=== PATIENT | male | born 1960 | race Caucasian/White ===

== ENCOUNTER 2020-11-07 19:11 | Inpatient (IN) ==
[2020-11-07] MEDS ORDERED: ASPIRIN CHEW 324 MG PO STA (19:29)
[2020-11-07 19:52] LABS: Basophils # (auto) 0.04 K/uL (0-0.2); Basophils % (auto) 0.6 %; Eosinophils # (auto) 0.26 K/uL (0-0.5); Eosinophils % (auto) 4.1 %; Hematocrit (blood only) 43.9 % (42-52); Hemoglobin 14.3 g/dL (14.0-18.0); Immature Granulocytes # (auto) 0.04 K/uL (0.00-0.02); Immature Granulocytes % (auto) 0.6 %; Lymphocytes # (auto) 1.15 K/uL (1.2-3.4); Lymphocytes % (auto) 18.2 %; Mean Corpuscular Hemoglobin 30.5 pg (25-34); Mean Corpuscular Hgb Conc 32.6 g/dL (32-36); Mean Corpuscular Volume 93.6 fL (80-100); Mean Platelet Volume 9.8 fL (7.4-10.4); Monocytes # (auto) 0.39 K/uL (0.11-0.59); Monocytes % (auto) 6.2 %; Neutrophils # (auto) 4.45 K/uL (1.4-6.5); Neutrophils % (auto) 70.3 %; Platelet Count 193 K/uL (130-400); RDW Coefficient of Variation 14.4 % (11.5-14.5); RDW Standard Deviation 48.7 fL (36.4-46.3); Red Blood Count 4.69 M/uL (4.7-6.1); White Blood Count 6.33 K/uL (4.8-10.8)
[2020-11-07] MEDS ORDERED: OPTIRAY 320 125ml IV ONE (19:55)
[2020-11-07 20:01] LABS: iSTAT Creatinine 1.4 mg/dl (0.6-1.3); iSTAT Hemoglobin 14.6 g/dl (14.0-18.0); iSTAT Ionized Calcium 1.14 mmol/l (1.12-1.32); iSTAT Potassium 4.9 mmol/L (3.3-5.0)
[2020-11-07 20:03] LABS: Partial Thromboplastin Ratio 0.9; Partial Thromboplastin Time 24.1 Seconds (21.0-31.0)
[2020-11-07 20:09] LABS: Blood Urea Nitrogen 29 mg/dl (7-18); Carbon Dioxide 33 mmol/L (21-32); Chloride 104 mmol/L (98-107); Creatinine Clr Calc Pharmacy 90.9 ml/min; Est GFR (African American) 67.5 ml/min; Est GFR (Non-African American) 58.2 ml/min; Glucose 181 mg/dl (70-99); Lipase 272 U/L (73-393); Potassium 4.8 mmol/L (3.5-5.1); Sodium 139 mmol/L (136-145)
--- NOTE | 2020-11-07 20:09 | XRay Report ---
XR chest 1V portable HISTORY: Atypical Chest Pain COMPARISON: None. FINDINGS: No pneumothorax. No pleural effusions. A few bibasilar linear densities consistent with sub segmental atelectasis. Otherwise, no focal lung consolidations to suggest pneumonia. No evidence for pulmonary edema. The cardiac silhouette is top normal in size. Mild interstitial thickening is likely technical from the patient's body habitus. No evidence for pulmonary edema. IMPRESSION: No acute process. ACT 112: Negative or not required by law. Electronically signed by: Herson Villatoro M.D. 11/07/2020 8:07 PM
[2020-11-07 20:14] LABS: NT Pro B Type Natriuretic Pept 389 pg/ml (0-900); Troponin I < 0.015 ng/ml (0-0.045)
--- NOTE | 2020-11-07 20:29 | CT Scan Report ---
CHEST CTA for PULMONARY ARTERIES CT DOSE: 949.82 mGy.cm HISTORY: Atypical chest pain. Shortness of breath. TECHNIQUE: Multiaxial CT images of the chest were performed following the intravenous administration of contrast to evaluate the pulmonary arteries. Maximal intensity projection images were also obtaine d. A dose lowering technique was utilized adhering to the principles of ALARA. COMPARISON STUDY: None. FINDINGS: Normal caliber thoracic aorta with no evidence for dissection. The heart is normal in size. No pleural or pericardial effusions. No filling defects within the pulmonary arteries to suggest a p ulmonary embolus. Limited views of the upper abdomen demonstrate a normal liver, spleen, and adrenal glands. Subcentimeter mediastinal lymph nodes do not meet CT criteria for pathologic involvement. The re are mildly enlarged bilateral hilar lymph nodes measuring up to 13 mm in short axis diameter. Norm al esophagus. No suspicious lytic or blastic osseous lesions. Old, healed left lateral eighth rib fra cture. No pneumothorax. The central airways are patent. There are a few bibasilar linear densities co nsistent with subsegmental atelectasis. Otherwise, no focal lung consolidations to suggest pneumonia. No evidence for pulmonary edema. IMPRESSION: 1. No evidence for pulmonary embolus. 2. Mild bilateral hilar lymphadenopathy. [address] follow-up recommended to ensure stability/r esolution. ACT 112: Negative or not required by law. Electronically signed by: Herson Villatoro M.D. 11/07/2020 8:27 PM
[2020-11-07 20:32] LABS: Prothrombin Time 10.3 Seconds (9.0-12.0)
--- NOTE | 2020-11-07 20:34 | Emergency Department Note ---
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) Associated symptoms: + lower extremity pain (Right lower extremity pain and swelling) and + palpitations; no pain with inspiration, no fever, no cough, no wheezing, no sputum production, no orthopnea, no polyuria, no polydipsia, no paresthesias, no carpopedal spasm, no hemoptysis, no diaphoresis, no nausea/vomiting, no syncope, no abdominal pain, no rash, no sense of impending doom, no chest congestion, no dizziness or no lightheadedness Home Medications Medication Instructions Recorded Confirmed Type atorvastatin 20 mg tablet 20 mg PO HS 11/07/20 11/07/20 History glimepiride 4 mg tablet 8 mg PO QDD 11/07/20 11/07/20 History hydrochlorothiazide 12.5 mg capsule 12.5 mg PO DAILY 11/07/20 11/07/20 History lisinopril 5 mg tablet 5 mg PO DAILY 11/07/20 11/07/20 History loperamide 2 mg capsule 2 mg PO Q4H PRN 11/07/20 11/07/20 History metformin 1,000 mg tablet 1,000 mg PO BID 11/07/20 11/07/20 History multivitamin 1 tab PO DAILY 11/07/20 11/07/20 History pioglitazone 30 mg tablet 30 mg PO DAILY 11/07/20 11/07/20 History Allergies Allergy/AdvReac Type Severity Reaction Status Date / Time No Known Allergies Allergy Mild Unverified 11/07/20 20:22 Past Med/Surg History Medical History (Updated 11/07/20 @ 22:47 by Chivo Waller) Diabetes mellitus, type II HLD (hyperlipidemia) HTN (hypertension) Morbid obesity No pertinent family history Surgical History (Updated 11/07/20 @ 20:31 by Chivo Waller) No pertinent past surgical history Family History (Updated 11/07/20 @ 22:14 by Rhiannon Diamond PA-C) Other Diabetes Social History (Updated 11/07/20 @ 22:14 by Rhiannon Diamond PA-C) Smoking Status: Former smoker Hx Alcohol Use: No Hx Substance Use: No Preferred Language: Ukrainian Feels Safe at Home: Yes Review of Systems A total of 10 systems reviewed and were otherwise negative Physical Exam Vital Signs: Vital Signs - 24 hr 11/07/20 19:15 11/07/20 19:30 11/07/20 19:32 Temperature 37.2 C Temperature Source Temporal Artery Sc an Pulse Rate 101 H 94 H Pulse Rate from Sp O2 Sensor 93 H Respiratory Rate 18 23 Respiratory Effort / Characteristics Respiratory Depth Normal Respiratory Patter n Blood Pressure 160/86 H Blood Pressure Fabby n 110 Pulse Oximetry 97 Oxygen Delivery Me thod Room Air Nasal Cannula Oxygen Flow Rate 4 Sepsis Recent Feve r Within 48 Hours No Sepsis New/Unexpla ined Change in Men tres Status N/A Sepsis Action Take n by Nursing No Action Required 11/07/20 19:36 11/07/20 19:39 11/07/20 20:12 Temperature Temperature Source Pulse Rate 95 H Pulse Rate from Sp O2 Sensor 94 H Respiratory Rate 22 Respiratory Effort / Characteristics Labored Respiratory Depth Deep Respiratory Patter n Regular Blood Pressure Blood Pressure Fabby n Pulse Oximetry 97 98 Oxygen Delivery Me thod Nasal Cannula Oxygen Flow Rate 2 Sepsis Recent Feve r Within 48 Hours Sepsis New/Unexpla ined Change in Men tres Status Sepsis Action Take n by Nursing 11/07/20 20:20 11/07/20 21:05 11/07/20 21:10 Temperature Temperature Source Pulse Rate 92 H 89 88 Pulse Rate from Sp O2 Sensor 94 H 88 Respiratory Rate 23 19 19 Respiratory Effort / Characteristics Respiratory Depth Respiratory Patter n Blood Pressure Blood Pressure Fabby n Pulse Oximetry 98 98 Oxygen Delivery Me thod Oxygen Flow Rate Sepsis Recent Feve r Within 48 Hours Sepsis New/Unexpla ined Change in Men tres Status Sepsis Action Take n by Nursing 11/07/20 21:57 Temperature 37.1 C Temperature Source Oral Pulse Rate Pulse Rate from Sp O2 Sensor Respiratory Rate Respiratory Effort / Characteristics Non-Labored Sponta neous Respiratory Depth Normal Respiratory Patter n Blood Pressure Blood Pressure Fabby n Pulse Oximetry 98 Oxygen Delivery Me thod Nasal Cannula Oxygen Flow Rate 3 Sepsis Recent Feve r Within 48 Hours Sepsis New/Unexpla ined Change in Men tres Status Sepsis Action Take n by Nursing Physical Exam: Physical Exam GENERAL: He is oriented to person, place, and time. He appears well-developed and well-nourished. He does not appear distressed. HENT: Exam performed. - Head: Normocephalic and atraumatic. - Right Ear: External ear normal. No mastoid tenderness. - Left Ear: External ear normal. No mastoid tenderness. - Mouth/Throat: The oropharynx is clear and moist. No trismus in the jaw. No dental abscesses or uvula swelling. No oropharyngeal exudate or tonsillar abscesses. EYES: Conjunctivae and EOM are normal. Pupils are equal, round, and reactive to light. Right eye exhibits no discharge. Left eye exhibits no discharge. No scleral icterus. NECK: Normal range of motion. Neck supple. No JVD present. No spinous process tenderness present. No carotid bruit present. No rigidity. No tracheal deviation and normal range of motion present. No Brudzinski's sign and no Kernig's sign noted. CV: Tachycardic rate, regular rhythm, normal heart sounds and intact distal pulses. Palpable radial pulses bue. PULM/CHEST: Effort normal and breath sounds normal. No respiratory distress. No stridor. He has no wheezes. He has no rales. - Chest Wall: He exhibits no tenderness. ABD: The abdomen is soft and obese. Bowel sounds are normal. He has no distension. No mass is present. There is no tenderness. There is no rebound, no guarding, no Daily's sign and no tenderness at McBurney's point. Rovsig negative. MUSC/SKEL: Swelling of the right lower extremity and pain on palpation of the right calf. Palpable DP and PT pulses bilaterally. LYMPH: No cervical adenopathy. NEURO: He is alert and oriented to person, place, and time. He has normal strength. No cranial nerve deficit or sensory deficit. Coordination and gait normal. GCS eye subscore is 4. GCS verbal subscore is 5. GCS motor subscore is 6. Cerebellar tests wnl. SKIN: Skin is warm and dry. He is not diaphoretic. PSYCH: He has a normal mood and affect. Behavior is normal. Judgment and thought content normal. Course Course 1919: The patient was evaluated in room B7. A complete history and physical exam was performed Cardiac monitoring: An order was placed for continuous cardiac monitoring. The monitor shows a rate of 90 with sinus rhythm Patient was found to be hypoxic saturating 87% on room air. 3 L nasal cannula was applied to the patient which improved his oxygen saturation. 2130: Vital signs stable on supplemental oxygen via nasal cannula. On repeat physical exam, the lungs are clear to auscultation bilaterally. Labs and imaging are within normal limits. [facility]. Administered Medications Discontinued Medications Acetaminophen (Acetaminophen 325 Mg Tab) 650 mg PO NOW STA Stop: 11/07/20 22:13 Last Admin: 11/07/20 22:32 Dose: 650 mg Documented by: [id number] Aspirin (Aspirin Chew 324 Mg) 324 mg PO NOW STA Stop: 11/07/20 19:30 Last Admin: 11/07/20 19:56 Dose: 324 mg Documented by: [id number] Ioversol (Optiray 320 125ml) 119 ml IV ONCE ONE Stop: 11/07/20 19:56 Last Admin: 11/07/20 19:56 Dose: 1 ml Documented by: [id number] Medical Decision Making Laboratory Data Result diagrams: 11/07/20 19:40 11/07/20 19:40 Lab Results 11/07/20 11/07/20 11/07/20 Range/Units 19:40 19:40 19:40 WBC 6.33 (4.8-10.8) K/uL RBC 4.69 L (4.7-6.1) M/uL Hgb 14.3 (14.0-18.0) g/dL POC Hgb (14.0-18.0) g/dl Hct 43.9 (42-52) % POC Hct (42-52) % MCV 93.6 (80-100) fL MCH 30.5 (25-34) pg MCHC 32.6 (32-36) g/dL RDW Std Deviation 48.7 H (36.4-46.3) fL RDW Coeff of Solomon 14.4 (11.5-14.5) % Plt Count 193 (130-400) K/uL MPV 9.8 (7.4-10.4) fL Immature Gran % (Auto) 0.6 % Neut % (Auto) 70.3 % Lymph % (Auto) 18.2 % [place] % (Auto) 6.2 % Eos % (Auto) 4.1 % Baso % (Auto) 0.6 % Neut # (Auto) 4.45 (1.4-6.5) K/uL Lymph # (Auto) 1.15 L (1.2-3.4) K/uL [place] # (Auto) 0.39 (0.11-0.59) K/uL Eos # (Auto) 0.26 (0-0.5) K/uL Baso # (Auto) 0.04 (0-0.2) K/uL Immature Gran # (Auto) 0.04 H (0.00-0.02) K/uL PT (9.0-12.0) Seconds INR (0.9-1.1) APTT 24.1 (21.0-31.0) Seconds PTT Ratio 0.9 ABG pH (7.35-7.45) ABG pCO2 (35-46) mmHg ABG pO2 (80-95) mmHg ABG HCO3 (19-24) mmol/L ABG O2 Saturation (90-95) % ABG Base Excess (-9-1.8) mEq/L James Test (Pos) Barometric Pressure mm/Hg Oxygen Given POC Sodium (135-144) mmol/L Sodium 139 (136-145) mmol/L POC Potassium (3.3-5.0) mmol/L Potassium 4.8 (3.5-5.1) mmol/L POC Chloride (101-112) mmol/L Chloride 104 (98-107) mmol/L Carbon Dioxide 33 H (21-32) mmol/L POC Total CO2 (24-31) mmol/L Anion Gap 2.0 L (3-11) POC Anion Gap (16-25) mmol/L POC BUN (7-18) mg/dl BUN 29 H (7-18) mg/dl Creatinine 1.32 (0.6-1.4) mg/dl POC Creatinine (0.6-1.3) mg/dl Est Cr Clr Drug Dosing 90.9 ml/min Est GFR ( Amer) 67.5 ml/min Est GFR (Non-Af Amer) 58.2 ml/min BUN/Creatinine Ratio 22.0 H (10-20) Glucose 181 H (70-99) mg/dl POC Glucose (other) (70-99) mg/dl Calcium 9.0 (8.5-10.1) mg/dl POC Ioniz Calcium Ramon (1.12-1.32) mmol/l Magnesium 2.1 (1.8-2.4) mg/dl Troponin I < 0.015 (0-0.045) ng/ml NT-Pro-B Natriuret Pep 389 (0-900) pg/ml Lipase 272 (73-393) U/L COVID-19 Eval Order SARS-CoV-2 (PCR) (Negative) 11/07/20 11/07/20 11/07/20 Range/Units 19:40 19:40 19:40 WBC (4.8-10.8) K/uL RBC (4.7-6.1) M/uL Hgb (14.0-18.0) g/dL POC Hgb (14.0-18.0) g/dl Hct (42-52) % POC Hct (42-52) % MCV (80-100) fL MCH (25-34) pg MCHC (32-36) g/dL RDW Std Deviation (36.4-46.3) fL RDW Coeff of Solomon (11.5-14.5) % Plt Count (130-400) K/uL MPV (7.4-10.4) fL Immature Gran % (Auto) % Neut % (Auto) % Lymph % (Auto) % [place] % (Auto) % Eos % (Auto) % Baso % (Auto) % Neut # (Auto) (1.4-6.5) K/uL Lymph # (Auto) (1.2-3.4) K/uL [place] # (Auto) (0.11-0.59) K/uL Eos # (Auto) (0-0.5) K/uL Baso # (Auto) (0-0.2) K/uL Immature Gran # (Auto) (0.00-0.02) K/uL PT 10.3 (9.0-12.0) Seconds INR 1.0 (0.9-1.1) APTT (21.0-31.0) Seconds PTT Ratio ABG pH (7.35-7.45) ABG pCO2 (35-46) mmHg ABG pO2 (80-95) mmHg ABG HCO3 (19-24) mmol/L ABG O2 Saturation (90-95) % ABG Base Excess (-9-1.8) mEq/L James Test (Pos) Barometric Pressure mm/Hg Oxygen Given POC Sodium (135-144) mmol/L Sodium (136-145) mmol/L POC Potassium (3.3-5.0) mmol/L Potassium (3.5-5.1) mmol/L POC Chloride (101-112) mmol/L Chloride (98-107) mmol/L Carbon Dioxide (21-32) mmol/L POC Total CO2 (24-31) mmol/L Anion Gap (3-11) POC Anion Gap (16-25) mmol/L POC BUN (7-18) mg/dl BUN (7-18) mg/dl Creatinine (0.6-1.4) mg/dl POC Creatinine (0.6-1.3) mg/dl Est Cr Clr Drug Dosing ml/min Est GFR ( Amer) ml/min Est GFR (Non-Af Amer) ml/min BUN/Creatinine Ratio (10-20) Glucose (70-99) mg/dl POC Glucose (other) (70-99) mg/dl Calcium (8.5-10.1) mg/dl POC Ioniz Calcium Ramon (1.12-1.32) mmol/l Magnesium (1.8-2.4) mg/dl Troponin I (0-0.045) ng/ml NT-Pro-B Natriuret Pep (0-900) pg/ml Lipase (73-393) U/L COVID-19 Eval Order Covid19 at [facility] SARS-CoV-2 (PCR) NEGATIVE (Negative) 11/07/20 11/07/20 Range/Units 19:49 21:38 WBC (4.8-10.8) K/uL RBC (4.7-6.1) M/uL Hgb (14.0-18.0) g/dL POC Hgb 14.6 (14.0-18.0) g/dl Hct (42-52) % POC Hct 43 (42-52) % MCV (80-100) fL MCH (25-34) pg MCHC (32-36) g/dL RDW Std Deviation (36.4-46.3) fL RDW Coeff of Solomon (11.5-14.5) % Plt Count (130-400) K/uL MPV (7.4-10.4) fL Immature Gran % (Auto) % Neut % (Auto) % Lymph % (Auto) % [place] % (Auto) % Eos % (Auto) % Baso % (Auto) % Neut # (Auto) (1.4-6.5) K/uL Lymph # (Auto) (1.2-3.4) K/uL [place] # (Auto) (0.11-0.59) K/uL Eos # (Auto) (0-0.5) K/uL Baso # (Auto) (0-0.2) K/uL Immature Gran # (Auto) (0.00-0.02) K/uL PT (9.0-12.0) Seconds INR (0.9-1.1) APTT (21.0-31.0) Seconds PTT Ratio ABG pH 7.37 (7.35-7.45) ABG pCO2 46 (35-46) mmHg ABG pO2 71 L (80-95) mmHg ABG HCO3 26 H (19-24) mmol/L ABG O2 Saturation 94.2 (90-95) % ABG Base Excess 0.0 (-9-1.8) mEq/L James Test Pos (Pos) Barometric Pressure 733.9 mm/Hg Oxygen Given 2 POC Sodium 141 (135-144) mmol/L Sodium (136-145) mmol/L POC Potassium 4.9 (3.3-5.0) mmol/L Potassium (3.5-5.1) mmol/L POC Chloride 98 L (101-112) mmol/L Chloride (98-107) mmol/L Carbon Dioxide (21-32) mmol/L POC Total CO2 29 (24-31) mmol/L Anion Gap (3-11) POC Anion Gap 20.0 (16-25) mmol/L POC BUN 30 H (7-18) mg/dl BUN (7-18) mg/dl Creatinine (0.6-1.4) mg/dl POC Creatinine 1.4 H (0.6-1.3) mg/dl Est Cr Clr Drug Dosing ml/min Est GFR ( Amer) ml/min Est GFR (Non-Af Amer) ml/min BUN/Creatinine Ratio (10-20) Glucose (70-99) mg/dl POC Glucose (other) 185 H (70-99) mg/dl Calcium (8.5-10.1) mg/dl POC Ioniz Calcium Ramon 1.14 (1.12-1.32) mmol/l Magnesium (1.8-2.4) mg/dl Troponin I (0-0.045) ng/ml NT-Pro-B Natriuret Pep (0-900) pg/ml Lipase (73-393) U/L COVID-19 Eval Order SARS-CoV-2 (PCR) (Negative) Imaging Data Radiologist's Impression: Chest X-Ray 11/07/20 19:28 XR chest 1V portable HISTORY: Atypical Chest Pain COMPARISON: None. FINDINGS: No pneumothorax. No pleural effusions. A few bibasilar linear densi ties consistent with subsegmental atelectasis. Otherwise, no focal lung consolidations to suggest pneumonia. No evidence for pulmonary edema. The cardiac silhouette is top normal in size. Mild interstitial thickening is likely technical from the patient's body habitus. No evidence for pulmonary edema. IMPRESSION: No acute process. ACT 112: Negative or not required by law. Electronically signed by: Herson Villatoro M.D. 11/07/2020 8:07 PM Chest CTA 11/07/20 19:29 CHEST CTA for PULMONARY ARTERIES CT DOSE: 949.82 mGy.cm HISTORY: Atypical chest pain. Shortness of breath. TECHNIQUE: Multiaxial CT images of the chest were performed following the in travenous administration of contrast to evaluate the pulmonary arteries. Maximal intensity projection images were also obtained. A dose lowering technique was utilized adhering to the principles of ALARA. COMPARISON STUDY: None. FINDINGS: Normal caliber thoracic aorta with no evidence for dissection. The heart is normal in size. No pleural or pericardial effusions. No filling defects within the pulmonary arteries to suggest a pulmonary embolus. Limited views of the upper abdomen demonstrate a normal liver, spleen, and adrenal glands. Subcentimeter mediastinal lymph nodes do not meet CT criteria for pathologic involvement. There are mildly enlarged bilateral hilar lymph nodes measuring up to 13 mm in short axis diameter. Normal esophagus. No suspicious lytic or blastic osseous lesions. Old, healed left lateral eighth rib fracture. No pneumothorax. The central airways are patent. There are a few bibasilar linear densities consistent with subsegmental atelectasis. Otherwise, no focal lung consolidations to suggest pneumonia. No evidence for pulmonary edema. IMPRESSION: 1. No evidence for pulmonary embolus. 2. Mild bilateral hilar lymphadenopathy. [address] follow-up recommended to ensure stability/resolution. ACT 112: Negative or not required by law. Electronically signed by: Herson Villatoro M.D. 11/07/2020 8:27 PM Venous Doppler Study 11/07/20 19:29 RIGHT LOWER EXTREMITY VENOUS DOPPLER HISTORY: Right leg swelling. COMPARISON STUDY: None. FINDINGS: There is normal compressibility, flow, and augmentation within the right lower extremity deep venous system. IMPRESSION: No DVT within the right lower extremity ACT 112: Negative or not required by law. Electronically signed by: Herson Villatoro M.D. 11/07/2020 8:49 PM ECG Data Interpretation: Sinus rhythm with rate 94. QRS 128. AR and QTc intervals are within normal limits. No ST elevation or ST depression. Right bundle branch block present. [facility] Narrative 1919: The patient was evaluated in room B7. A complete history and physical exam was performed Cardiac monitoring: An order was placed for continuous cardiac monitoring. The monitor shows a rate of 90 with sinus rhythm Patient was found to be hypoxic saturating 87% on room air. 3 L nasal cannula was applied to the patient which improved his oxygen saturation. 2129: Vital signs stable on supplemental oxygen via nasal cannula. On repeat physical exam, the lungs are clear to auscultation bilaterally. Labs and imaging are within normal limits. [facility] for [facility]. Impression & Plan Hypoxia Critical Care Time Critical Care Time: Yes Total Critical Care Time: 46 I have personally spent greater than 46 minutes of critical care time in the direct management of this patient. This includes bedside care, interpretation of diagnostic studies, and testing, discussion with consultants, patient, and family members, and other required patient management activities. This 46 minutes is in excess of all separately billable procedures. Discharge Plan Visit Data Chief Complaint: Respiratory Problems Stated Complaint: LOW OXYGEN LEVEL ED Provider: Chivo Waller Discharge Problem: Hypoxia Patient Disposition: Admitted As Inpatient Forms Stand Alone Forms: My [facility] Prescriptions Prescriptions: No Action atorvastatin 20 mg tablet 20 mg PO HS RF: 0 metformin 1,000 mg tablet 1,000 mg PO BID RF: 0 hydrochlorothiazide 12.5 mg capsule 12.5 mg PO DAILY RF: 0 pioglitazone 30 mg tablet 30 mg PO DAILY RF: 0 multivitamin Tablet 1 tab PO DAILY RF: 0 loperamide [Imodium] 2 mg Capsule 2 mg PO Q4H PRN (Reason: Diarrhea) RF: 0 glimepiride 4 mg tablet 8 mg PO QDD RF: 0 lisinopril 5 mg tablet 5 mg PO DAILY RF: 0 Referrals Referrals: PCP,NO [Physician] -
--- NOTE | 2020-11-07 20:50 | Ultrasound Report ---
RIGHT LOWER EXTREMITY VENOUS DOPPLER HISTORY: Right leg swelling. COMPARISON STUDY: None. FINDINGS: There is normal compressibility, flow, and augmentation within the right lower extremity de ep venous system. IMPRESSION: No DVT within the right lower extremity ACT 112: Negative or not required by law. Electronically signed by: Herson Villatoro M.D. 11/07/2020 8:49 PM
[2020-11-07 21:44] LABS: Magnesium 2.1 mg/dl (1.8-2.4)
--- NOTE | 2020-11-07 22:01 | History & Physical Report ---
Date of Service November 07, 2020 Assessment & Plan (1) Hypoxia: (2) Lower extremity edema: (3) Diabetes mellitus, type II: (4) HTN (hypertension): (5) HLD (hyperlipidemia): (6) Morbid obesity: Plan: HPI, PMH, PE completed by Rhiannon Diamond PA-C Assessment and plan per Dr. Kohler. See addendum. History of Present Illness Chief Complaint: Right leg pain, SOB Primary Care Provider: Kimberly Hernández DO Patient is 60-year-old male with PMH DM II, HTN, HLD, prior tobacco use, morbid obesity presented to ER for right leg pain and swelling x several days. Patient reports chronic bilateral lower extremity edema, left ankle typically worse than right. He reports in past has tried YAMILETH hose without improvement. Patient states several days ago stepped on threshold on floor in his house and since having pain to right foot and right leg. He reports chronic lower extremity discoloration however right lower leg and foot seem to have more red coloration than usual. Was seen at PCPs office for leg pain today and noted to be hypoxic in the 80s and was referred to ER. Patient reports shortness of breath with exertion for several months. Denies chest pain or exertional chest pain. Denies fever, chills, cough. Patient reports that he snores at night and he feels that he may have underlying sleep apnea. Patient reports has gained approximately 20 pounds over the past couple months, feels he has gained weight secondary to the pandemic. Reports palpitations during the middle the night and sometimes awaken from sleep. Patient does not check his blood sugars. 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 Reports smoked for 40 years, quit approximately 12 years ago. Denies fever/chills, diaphoresis, N/V/D/C, BURNS, dizziness, syncope, vision changes, neck pain, sore throat, choking, otalgia, rhinorrhea, abdominal pain, paresthesias, weakness, extremity weakness, other rashes, urinary symptoms. In ER patient afebrile, found to have pulse ox 85% on room air up to 98% on 3 L. No leukocytosis, negative COVID-19 PCR. Chest x-ray no acute process, CTA chest: No PE, mild bilateral hilar lymphadenopathy. RLE venous Doppler negative for DVT Patient being admitted for further evaluation and treatment. Allergies Allergy/AdvReac Type Severity Reaction Status Date / Time No Known Allergies Allergy Mild Unverified 11/07/20 20:22 Home Medications Medication Instructions Recorded Confirmed Type atorvastatin 20 mg tablet 20 mg PO HS 11/07/20 11/07/20 History glimepiride 4 mg tablet 8 mg PO QDD 11/07/20 11/07/20 History hydrochlorothiazide 12.5 mg capsule 12.5 mg PO DAILY 11/07/20 11/07/20 History lisinopril 5 mg tablet 5 mg PO DAILY 11/07/20 11/07/20 History loperamide 2 mg capsule 2 mg PO Q4H PRN 11/07/20 11/07/20 History metformin 1,000 mg tablet 1,000 mg PO BID 11/07/20 11/07/20 History multivitamin 1 tab PO DAILY 11/07/20 11/07/20 History pioglitazone 30 mg tablet 30 mg PO DAILY 11/07/20 11/07/20 History Past Med/Surg History Medical History (Updated 11/07/20 @ 22:47 by Chivo Waller) Diabetes mellitus, type II HLD (hyperlipidemia) HTN (hypertension) Morbid obesity No pertinent family history Surgical History (Updated 11/07/20 @ 20:31 by Chivo Waller) No pertinent past surgical history Family History (Updated 11/07/20 @ 22:14 by Rhiannon Diamond PA-C) Other Diabetes Social History (Updated 11/07/20 @ 22:14 by Rhiannon Diamond PA-C) Smoking Status: Former smoker Cigarettes Per Day: 1; Smoking End Date: 2005; Second Hand Exposure: No; Do You Dip or Chew Tobacco: No; Tobacco Cessation Education Requested by Patient: No Hx Alcohol Use: Yes Alcohol type: beer Hx Substance Use: No Preferred Language: Uzbek Director Regulatory Affairs Required: No Beliefs That Will Affect Care: None Current Living Situation: Spouse Other Information That Helps Us Care for You: No Feels Safe at Home: Yes Safety Concerns: Feels Safe At This Time Assistive Devices: None Physical Exam 2 Physical Exam: General: no distress, obese Head: normocephalic, atraumatic Eyes: conjunctiva non-injected, anicteric ENT: normal inspection external ears, nose, mucous membranes moist Neck: supple, trachea midline Lungs: no respiratory distress, On 3L oxygen via NC sat 98%, speaks in full sentences, no wheezing/rhonchi/rales noted CV: distant heart sounds, RRR, no murmur, 1-2+ pretibial edema Abd: +obese, normal BS, soft, non-tender Ext: no cyanosis, +venous stasis skin discoloration bilateral lower legs with right leg with mild erythema, no calf tenderness to palpation, +tenderness to palpation bilateral lower anterior legs, distal pulses palpable, sensation to light touch intact Neuro: A&O x 3, no focal deficits noted, normal affect Skin: warm, dry Results & Data Results & Data ([facility]) Vital Signs (Past 12 Hours) Vital Signs Temp Pulse Resp BP Pulse Ox 11/07/20 21:57 37.1 C 98 11/07/20 21:10 88 19 98 11/07/20 21:05 89 19 11/07/20 20:20 92 H 23 98 11/07/20 20:12 95 H 22 98 11/07/20 19:39 97 11/07/20 19:32 94 H 23 97 11/07/20 19:15 37.2 C 101 H 18 160/86 H Laboratory Results Short CBC 11/07/20 Range/Units 19:40 WBC 6.33 (4.8-10.8) K/uL Hgb 14.3 (14.0-18.0) g/dL Hct 43.9 (42-52) % Plt Count 193 (130-400) K/uL BMP 11/07/20 19:40 Sodium 139 Potassium 4.8 Chloride 104 Carbon Dioxide 33 H BUN 29 H Creatinine 1.32 Glucose 181 H Calcium 9.0 Cardiac Enzymes 11/07/20 Range/Units 19:40 Troponin I < 0.015 (0-0.045) ng/ml Diagnostic Findings Chest X-Ray 11/07/20 19:28 XR chest 1V portable HISTORY: Atypical Chest Pain COMPARISON: None. FINDINGS: No pneumothorax. No pleural effusions. A few bibasilar linear densities consistent with subsegmental atelectasis. Otherwise, no focal lung consolidations to suggest pneumonia. No evidence for pulmonary edema. The cardiac silhouette is top normal in size. Mild interstitial thickening is likely technical from the patient's body habitus. No evidence for pulmonary edema. IMPRESSION: No acute process. ACT 112: Negative or not required by law. Electronically signed by: Herson Villatoro M.D. 11/07/2020 8:07 PM Chest CTA 11/07/20 19:29 CHEST CTA for PULMONARY ARTERIES CT DOSE: 949.82 mGy.cm HISTORY: Atypical chest pain. Shortness of breath. TECHNIQUE: Multiaxial CT images of the chest were performed following the intravenous administration of contrast to evaluate the pulmonary arteries. Maximal intensity projection images were also obtained. A dose lowering techn ique was utilized adhering to the principles of ALARA. COMPARISON STUDY: None. FINDINGS: Normal caliber thoracic aorta with no evidence for dissection. The heart is normal in size. No pleural or pericardial effusions. No filling defects within the pulmonary arteries to suggest a pulmonary embolus. Limited views of the upper abdomen demonstrate a normal liver, spleen, and adrenal glands. Subcen timeter mediastinal lymph nodes do not meet CT criteria for pathologic involvement. There are mildly enlarged bilateral hilar lymph nodes measuring up to 13 mm in short axis diameter. Normal esophagus. No suspicious lytic or blastic osseous lesions. Old, healed left lateral eighth rib fracture. No pneumothorax. The central airways are patent. There are a few bibasilar linear densities consistent with subsegmental atelectasis. Otherwise, no focal lung consolidations to suggest pneumonia. No evidence for pulmonary edema. IMPRESSION: 1. No evidence for pulmonary embolus. 2. Mild bilateral hilar lymphadenopathy. [address] follow-up recommended to ensure stability/resolution. ACT 112: Negative or not required by law. Electronically signed by: Herson Villatoro M.D. 11/07/2020 8:27 PM Venous Doppler Study 11/07/20 19:29 RIGHT LOWER EXTREMITY VENOUS DOPPLER HISTORY: Right leg swelling. COMPARISON STUDY: None. FINDINGS: There is normal compressibility, flow, and augmentation within the right lower extremity deep venous system. IMPRESSION: No DVT within the right lower extremity ACT 112: Negative or not required by law. Electronically signed by: Herson Villatoro M.D. 11/07/2020 8:49 PM Supervising Physician Co-Signing Physician Notes IM ATTENDING : Patient seen and examined. History obtained from patient, family, and records. Preceding documentation by Ms. Rhiannon Schreckengost, PA-C reviewed. FINAL ASSESSMENT AND PLAN as follows : Hypoxemic respiratory failure Unknown duration Possible right-sided heart failure from possible pulmonary hypertension from undiagnosed JASSON Hypertension, slightly elevated secondary to discomfort RLE cellulitis, possible ascending infection following right foot trauma, underlying leg swelling from possible right-sided heart failure Patient not septic for now DM2, on oral medications, suboptimal control as of recent hemoglobin A1c of 10.9 in November 2019 Hyperlipidemia on statin Rx Past tobacco abuse Medical telemetry Supplemental O2 Baseline ABG TTE Re: Hypoxemia rule out pulmonary hypertension Outpatient sleep study Pulmonology consult Re: Respiratory failure Lasix 1 dose for fluid retention Right foot x-ray Re: History trauma Doxycycline for RLE cellulitis Basal insulin, ISS BG goal 1 10-1 40, carb count coverage, update hemoglobin A1c, DM education DVT prophylaxis. Lovenox subcu Full code Patient requesting updates from providers. Ms. Ivette Rubin, contact #[phone]. Text document was generated using [employer] voice recognition software. It may contain grammatical or spelling errors. Kindly contact undersigned for clarification of any documentation item in question.
[2020-11-07] MEDS ORDERED: ACETAMINOPHEN 325 MG TAB PO STA (22:12)
[2020-11-07 22:20] LABS: HCO3 ABG 26 mmol/L (19-24); Oxygen Saturation ABG 94.2 % (90-95); PCO2 ABG 46 mmHg (35-46); PO2 ABG 71 mmHg (80-95); pH ABG 7.37 (7.35-7.45)
[2020-11-07 22:36] LABS: Allen Test Pos (Pos)
[2020-11-07] MEDS ORDERED: DOXYCYCLINE HYCLATE 100 MG in DEXTROSE 5% 100 ML IV STA (22:39)
[2020-11-07] MEDS ORDERED: FUROSEMIDE 40 MG/4 ML VIAL IV STA (22:39)
[2020-11-07] MEDS ORDERED: INSULIN GLARGINE SOLOSTAR 100 UNITS/ML 3 ML PEN SC STA (22:47)
[2020-11-07 23:48] LABS: Alanine Aminotransferase 48 U/L (12-78); Alkaline Phosphatase 95 U/L (45-117); Aspartate Aminotransferase 26 U/L (15-37); Bilirubin Direct < 0.1 mg/dl (0-0.2); Bilirubin,Total 0.4 mg/dl (0.2-1); Creatine Kinase 440 U/L (39-308); Total Protein 7.1 gm/dl (6.4-8.2)
[2020-11-08] MEDS ORDERED: PROMETHAZINE HCL 12.5 MG in SODIUM CHLORIDE 0.9% 50 ML IV PRN (01:03)
[2020-11-08] MEDS ORDERED: CARBOHYDRATES FOR HYPOGLYCEMIA PO PRN (01:03)
[2020-11-08] MEDS ORDERED: GLUCOSE 10 TABS/TUBE PO PRN (01:03)
[2020-11-08] MEDS ORDERED: GLUCAGON FOR INJ 1 MG VIAL SQ PRN (01:03)
[2020-11-08] MEDS ORDERED: DEXTROSE 50% 50 ML SYRINGE IV PRN (01:03)
[2020-11-08] MEDS ORDERED: ALBUMIN 25% 12.5 GM/50 ML VIAL IV ONE (01:03)
[2020-11-08] MEDS ORDERED: traMADol HCL 50 MG TABLET PO PRN (01:03)
[2020-11-08] MEDS ORDERED: GLUCOSE 40% GEL 15 GM TUBE PO PRN (01:03)
[2020-11-08] MEDS: INSULIN ASPART 100 UNITS/ML 3 ML PEN SC SCH ×5 (02:04→21:30)
[2020-11-08 07:54] LABS: Basophils # (auto) 0.02 K/uL (0-0.2); Basophils % (auto) 0.4 %; Eosinophils # (auto) 0.23 K/uL (0-0.5); Eosinophils % (auto) 4.1 %; Hematocrit (blood only) 42.6 % (42-52); Hemoglobin 13.5 g/dL (14.0-18.0); Immature Granulocytes # (auto) 0.02 K/uL (0.00-0.02); Immature Granulocytes % (auto) 0.4 %; Lymphocytes # (auto) 0.83 K/uL (1.2-3.4); Lymphocytes % (auto) 14.8 %; Mean Corpuscular Hemoglobin 30.1 pg (25-34); Mean Corpuscular Hgb Conc 31.7 g/dL (32-36); Mean Corpuscular Volume 94.9 fL (80-100); Mean Platelet Volume 9.5 fL (7.4-10.4); Monocytes # (auto) 0.32 K/uL (0.11-0.59); Monocytes % (auto) 5.7 %; Neutrophils # (auto) 4.17 K/uL (1.4-6.5); Neutrophils % (auto) 74.6 %; Platelet Count 185 K/uL (130-400); RDW Coefficient of Variation 14.5 % (11.5-14.5); RDW Standard Deviation 50.1 fL (36.4-46.3); Red Blood Count 4.49 M/uL (4.7-6.1); White Blood Count 5.59 K/uL (4.8-10.8)
--- NOTE | 2020-11-08 07:56 | Ultrasound Report ---
US abdomen ltd ascites HISTORY: 60 years-old Male abd distension acute generalized abdominal distention COMPARISON: None TECHNIQUE: Multiple real-time sonographic images of the abdomen were obtained assessing grayscale johnny earance FINDINGS/IMPRESSION: No abdominal ascites identified. ACT 112: Negative or not required by law. The above report was generated using voice recognition software. It may contain grammatical, syntax o r spelling errors. Electronically signed by: Agustin Shipley M.D. 11/08/2020 7:55 AM
[2020-11-08 08:20] LABS: BUN Creatinine Ratio 22.3 (10-20); Calcium 8.6 mg/dl (8.5-10.1); Est GFR (African American) 75.7 ml/min; Est GFR (Non-African American) 65.3 ml/min; Potassium 4.3 mmol/L (3.5-5.1)
[2020-11-08] MEDS: MULTIVITAMIN TAB PO SCH (09:00)
[2020-11-08] MEDS ORDERED: lisinopril 5 MG TAB PO SCH (09:00)
[2020-11-08] MEDS ORDERED: DOXYCYCLINE HYCLATE 100 MG CAP PO SCH (09:00)
[2020-11-08] MEDS: ENOXAPARIN INJ 40 MG/0.4 ML SYR SQ SCH (09:00)
[2020-11-08] MEDS: INSULIN GLARGINE SOLOSTAR 100 UNITS/ML 3 ML PEN SC SCH ×2 (09:03→21:29)
[2020-11-08] MEDS ORDERED: lisinopril 5 MG TAB PO ONE (09:26)
[2020-11-08] MEDS: ACETAMINOPHEN 325 MG TAB PO PRN ×2 (09:47→19:43)
--- NOTE | 2020-11-08 10:06 | XRay Report ---
XR foot RT min 3V routine CLINICAL HISTORY: R foot injury/pain COMPARISON STUDY: None. FINDINGS: No fracture or dislocation within the right foot. Mild dorsal soft tissue swelling. Small p lantar and posterior calcaneal spurs. IMPRESSION: No fractures. ACT 112: Negative or not required by law. Electronically signed by: Herson Villatoro M.D. 11/08/2020 10:04 AM
--- NOTE | 2020-11-08 11:27 | Electrocardiogram Report ---
Test Reason : Blood Pressure : / mmHG Vent. Rate : 094 BPM Atrial Rate : 094 BPM P-R Int : 170 ms QRS Dur : 128 ms QT Int : 370 ms P-R-T Axes : 060 -58 031 degrees QTc Int : 462 ms Normal sinus rhythm Left anterior fascicular block Right bundle branch block Abnormal ECG No previous ECGs available Confirmed by Napoleon Lockett ([id number]) on 11/08/2020 11:27:11 AM Referred By: Kimberly Hernández Confirmed By:Napoleon Lockett
--- NOTE | 2020-11-08 14:08 | Pulmonary Consultation ---
Date of Consultation November 08, 2020 Assessment & Plan (1) Hypoxia: (2) Morbid obesity: (3) Hypercapnic respiratory failure: Impression: 60-year-old male with morbid obesity admitted with hypoxemia found to have elevated CO2 levels as well. I suspect he has obesity hypoventilation syndrome. He may have undiagnosed pulmonary hypertension contributing to lower extremity edema. Recommendations: 1. Patient will be initiated on nightly CPAP empirically at 12 cm of water. Recommend case management evaluate the patient to see if he can get set up with noninvasive positive pressure ventilation going home given his elevated CO2 levels. Outpatient polysomnography is recommended. 2. Weight loss recommended as an adjuvant therapy for potential sleep disordered breathing. 3. Transthoracic echocardiogram should be obtained to evaluate PA pressures and diastolic filling parameters. Given potential diastolic dysfunction, aggressive blood pressure control is recommended with target blood pressure less than 130/70. Judicious diuretics as well. 4. The patient may require supplemental oxygen prior to discharge. 5. Outpatient PFTs should be conducted to evaluate for potential airflow obstruction. No significant emphysema identified on the CT angiogram. Patient is not bronchospastic and I do not think steroids are indicated at the current time. Given his minimal respiratory symptoms currently, I would not recommend inhalers but rather await for results of the patient's PFTs. 6. Defer management of the patient's additional medical issues to the patient's admitting service. We will follow up to see how he does with empiric CPAP overnight tonight. History of Present Illness Attending Physician: Ghassan Smith MD History of Present Illness Asked by hospitalist to evaluate this patient with hypoxemic and hypercarbic respiratory failure. History is obtained from discussion with the patient as well as review the electronic medical record. 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 He has signs and symptoms and believes he has sleep apnea but is never been assessed or treated for the above. He does have a history of tobacco abuse, about an [id number] history but quit smoking about 10 years ago. The patient presented to the emergency room yesterday evening with complaints of right leg pain and swelling over several days. He has had chronic lower extremity edema. The pain prompted the patient be seen by his primary care provider but he was noted to be hypoxemic and subsequently referred to the emergency room. The patient does have some shortness of breath but denies any cough wheezing or sputum production. He is not had PFTs performed previously. He denies chest pain palpitations. He was placed on antibiotics in the form of doxycycline given 1 dose of Lasix and admitted to the hospitalist service. He has not had prior pulmonary evaluation conducted. Allergies Allergy/AdvReac Type Severity Reaction Status Date / Time No Known Allergies Allergy Mild Unverified 11/07/20 20:22 Home Medications Medication Instructions Recorded Confirmed Type atorvastatin 20 mg tablet 20 mg PO HS 11/07/20 11/07/20 History glimepiride 4 mg tablet 8 mg PO QDD 11/07/20 11/07/20 History hydrochlorothiazide 12.5 mg capsule 12.5 mg PO DAILY 11/07/20 11/07/20 History lisinopril 5 mg tablet 5 mg PO DAILY 11/07/20 11/07/20 History loperamide 2 mg capsule 2 mg PO Q4H PRN 11/07/20 11/07/20 History metformin 1,000 mg tablet 1,000 mg PO BID 11/07/20 11/07/20 History multivitamin 1 tab PO DAILY 11/07/20 11/07/20 History pioglitazone 30 mg tablet 30 mg PO DAILY 11/07/20 11/07/20 History Patient History Medical History (Updated 11/08/20 @ 14:14 by Nadeem Coppola MD) Diabetes mellitus, type II HLD (hyperlipidemia) HTN (hypertension) Morbid obesity No pertinent family history Surgical History (Updated 11/07/20 @ 20:31 by Chivo Waller) No pertinent past surgical history Family History (Updated 11/07/20 @ 22:14 by Rhiannon Diamond PA-C) Other Diabetes Social History (Updated 11/07/20 @ 22:14 by Rhiannon Diamond PA-C) Smoking Status: Former smoker Cigarettes Per Day: 1; Smoking End Date: 2005; Second Hand Exposure: No; Do You Dip or Chew Tobacco: No; Tobacco Cessation Education Requested by Patient: No Hx Alcohol Use: Yes Alcohol type: beer Hx Substance Use: No Preferred Language: Irish Steeler Required: No Beliefs That Will Affect Care: None Current Living Situation: Spouse Other Information That Helps Us Care for You: No Feels Safe at Home: Yes Safety Concerns: Feels Safe At This Time Assistive Devices: Oxygen - Continuous Review of Systems Review of Systems: Please refer to the admission H&P. No additions or deletions Physical Exam Physical Exam: General: no distress, obese Head: normocephalic, atraumatic Eyes: conjunctiva non-injected, anicteric ENT: normal inspection external ears, nose, mucous membranes moist Neck: supple, trachea midline Lungs: no respiratory distress, On 3L oxygen via NC sat 98%, speaks in full sentences, no wheezing/rhonchi/rales noted CV: distant heart sounds, RRR, no murmur, 1-2+ pretibial edema Abd: +obese, normal BS, soft, non-tender Ext: no cyanosis, +venous stasis skin discoloration bilateral lower legs with right leg with mild erythema, no calf tenderness to palpation, +tenderness to palpation bilateral lower anterior legs, distal pulses palpable, sensation to light touch intact Neuro: A&O x 3, no focal deficits noted, normal affect Skin: warm, dry Results & Data Results & Data ([facility]) Vital Signs (Past 12 Hours) Vital Signs Temp Pulse Pulse Pulse Resp BP Pulse Ox 11/08/20 11:51 36.9 C 84 20 137/73 94 11/08/20 08:03 36.6 C 92 H 20 166/100 H 90 11/08/20 07:00 102 H 11/08/20 04:11 86 11/08/20 03:00 37.2 C 96 H 18 156/83 H 95 11/08/20 02:19 37.1 C 86 18 157/98 H 100 Laboratory Results 11/08/20 07:25 11/08/20 07:25 BNP normal at 349 Diagnostic Findings The patient CT of the chest was independently reviewed. CHEST CTA for PULMONARY ARTERIES CT DOSE: 949.82 mGy.cm HISTORY: Atypical chest pain. Shortness of breath. TECHNIQUE: Multiaxial CT images of the chest were performed following the intravenous administration of contrast to evaluate the pulmonary arteries. Maximal intensity projection images were also obtained. A dose lowering technique was utilized adhering to the principles of ALARA. COMPARISON STUDY: None. FINDINGS: Normal caliber thoracic aorta with no evidence for dissection. The heart is normal in size. No pleural or pericardial effusions. No filling defects within the pulmonary arteries to suggest a pulmonary embolus. Limited views of the upper abdomen demonstrate a normal liver, spleen, and adrenal glands. Subcentimeter mediastinal lymph nodes do not meet CT criteria for pathologic involvement. There are mildly enlarged bilateral hilar lymph nodes measuring up to 13 mm in short axis diameter. Normal esophagus. No suspicious lytic or blastic osseous lesions. Old, healed left lateral eighth rib fracture. No pneumothorax. The central airways are patent. There are a few bibasilar linear densities consistent with subsegmental atelectasis. Otherwise, no focal lung consolidations to suggest pneumonia. No evidence for pulmonary edema. IMPRESSION: 1. No evidence for pulmonary embolus. 2. Mild bilateral hilar lymphadenopathy. [address] follow-up recommended to ensure stability/resolution. PG Care Time/CCT Total # of Minutes Spent Total Time Spent with Patient: Total time spent is greater than 50% in coordination of care (as documented) at patient's floor/unit and/or counseling patient: Coding Level of Care Code 96176 Inpt Consult Level 4 Diagnoses Hypoxia R09.02 Morbid obesity E66.01 Hypercapnic respiratory failure J96.92
[2020-11-08] MEDS: FUROSEMIDE 20 MG in SYRINGE 0 ML IV SCH (14:30)
--- NOTE | 2020-11-08 18:27 | Hospitalist Progress Note ---
Date of Service November 08, 2020 Assessment & Plan (1) Hypoxia: Plan: Acute hypoxemic respiratory failure Bilateral hilar lymphadenopathy Unclear etiology DD:JASSON, Obesity Hypoventilation Syndrome, Pulmonary Hypertension Negative COVID Screen -Chest CTA:No evidence for pulmonary embolus. Mild bilateral hilar lymphadenopathy. [address] follow-up recommended to ensure stability/resolution. ECHO pending Appreciate pulmonary input Continue supplemental oxygen as needed IV diuresis as needed Needs PFTs as outpatient 2 step prior to discharge Right LE cellulitis H/O foot trauma ~ 10 days ago Venous Doppler:No DVT within the right lower extremity Foot X ray:No fractures. Continue doxycycline Hypertension BP elevated Increase lisinopril to 10 mg daily Monitor DM II HbA1C: 10.9 in November 2019 Continue insulin therapy Monitor blood glucose levels Hyperlipidemia on statin Past tobacco abuse Currently denies any smoking DVT Px: Lovenox SQ Code Status Full code Admission and Anticipated Discharge Date Admission Date: November 07, 2020 Subjective Patient is seen and examined at bedside States having right leg pain associated with erythema Admits to having history of trauma about 10 days ago Denies chest pain, dyspnea, dizziness, nausea, abdominal pain Echo pending Requires 4 L of oxygen to maintain saturation Review of Systems Review of Systems: All systems reviewed & are unremarkable except as noted in Subjective Physical Exam Physical Exam: Physical Exam: Vitals signs as noted above General Appearance:Morbidly Obese, no apparent distress Head: normocephalic, Atraumatic Eyes: normal inspection, EOMI Neck: supple, Trachea midline Respiratory/Chest: Normal breath sounds, CTA, No accessory muscle use Cardiovascular: S1, S2, No murmur Abdomen/GI:Soft, Non tender, Bowel sounds present Extremities/Musculoskeletal:normal inspection, RLE erythema, non pitting edema Neurologic/Psych:AAOX3, grossly no focal neurological deficits Skin: normal color, warm Results & Data Results & Data ([facility]) Vital Signs (Past 12 Hours) Vital Signs Temp Pulse Pulse Resp BP Pulse Ox 11/08/20 15:23 36.4 C L 94 H 20 157/81 H 96 11/08/20 14:20 90 11/08/20 11:51 36.9 C 84 20 137/73 94 11/08/20 08:03 36.6 C 92 H 20 166/100 H 90 11/08/20 07:00 102 H Laboratory Results Short CBC 11/07/20 11/08/20 Range/Units 19:40 07:25 WBC 6.33 5.59 (4.8-10.8) K/uL Hgb 14.3 13.5 L (14.0-18.0) g/dL Hct 43.9 42.6 (42-52) % Plt Count 193 185 (130-400) K/uL BMP 11/07/20 11/08/20 19:40 07:25 Sodium 139 141 Potassium 4.8 4.3 Chloride 104 105 Carbon Dioxide 33 H 33 H BUN 29 H 27 H Creatinine 1.32 1.20 Glucose 181 H 164 H Calcium 9.0 8.6 Cardiac Enzymes 11/07/20 Range/Units 19:40 Total Creatine Kinase 440 H (39-308) U/L Troponin I < 0.015 (0-0.045) ng/ml Liver Function 11/07/20 Range/Units 19:40 Total Bilirubin 0.4 (0.2-1) mg/dl Direct Bilirubin < 0.1 (0-0.2) mg/dl AST 26 (15-37) U/L ALT 48 (12-78) U/L Alkaline Phosphatase 95 (45-117) U/L Albumin 3.0 L (3.4-5.0) gm/dl
[2020-11-08] MEDS: DOXYCYCLINE HYCLATE 100 MG CAP PO SCH (21:23)
[2020-11-08] MEDS: ATORVASTATIN 20 MG TAB PO SCH (21:24)
[2020-11-08] MEDS ORDERED: FUROSEMIDE 40 MG/4 ML VIAL IV ONE (23:45)
[2020-11-08] MEDS ORDERED: FUROSEMIDE 20 MG in SYRINGE 0 ML IV ONE (23:47)
[2020-11-09 06:21] LABS: Hematocrit (blood only) 42.3 % (42-52); Hemoglobin 13.2 g/dL (14.0-18.0); Mean Corpuscular Hemoglobin 29.7 pg (25-34); Mean Corpuscular Hgb Conc 31.2 g/dL (32-36); Mean Corpuscular Volume 95.3 fL (80-100); Mean Platelet Volume 9.8 fL (7.4-10.4); Platelet Count 177 K/uL (130-400); RDW Coefficient of Variation 14.5 % (11.5-14.5); RDW Standard Deviation 50.3 fL (36.4-46.3); Red Blood Count 4.44 M/uL (4.7-6.1); White Blood Count 6.52 K/uL (4.8-10.8)
[2020-11-09 06:52] LABS: BUN Creatinine Ratio 23.7 (10-20); Calcium 8.8 mg/dl (8.5-10.1); Creatinine Clr Calc Pharmacy 107.3 ml/min; Est GFR (African American) 81.4 ml/min; Est GFR (Non-African American) 70.3 ml/min; Magnesium 2.2 mg/dl (1.8-2.4); Potassium 4.2 mmol/L (3.5-5.1)
[2020-11-09] MEDS: ACETAMINOPHEN 325 MG TAB PO PRN (07:58)
[2020-11-09] MEDS: lisinopril 10 MG TAB PO SCH (08:19)
[2020-11-09] MEDS: MULTIVITAMIN TAB PO SCH (08:20)
[2020-11-09] MEDS: DOXYCYCLINE HYCLATE 100 MG CAP PO SCH ×2 (08:20→20:21)
[2020-11-09] MEDS: ENOXAPARIN INJ 40 MG/0.4 ML SYR SQ SCH (08:20)
[2020-11-09] MEDS: INSULIN GLARGINE SOLOSTAR 100 UNITS/ML 3 ML PEN SC SCH ×2 (08:21→20:23)
[2020-11-09] MEDS: INSULIN ASPART 100 UNITS/ML 3 ML PEN SC SCH ×4 (08:22→20:22)
[2020-11-09] MEDS: FUROSEMIDE 20 MG in SYRINGE 0 ML IV SCH (08:24)
--- NOTE | 2020-11-09 10:21 | Pulmonology Progress Note ---
Date of Service November 09, 2020 Assessment & Plan (1) Hypoxia: (2) Morbid obesity: (3) Hypercapnic respiratory failure: Plan: Impression: 60-year-old male with morbid obesity admitted with hypoxemia found to have elevated CO2 levels as well. I suspect he has obesity hypoventilation syndrome. Tolerated CPAP last night. Recommendations: 1. Recommend the patient be discharged on bilevel 03/04 and have an outpatient polysomnogram ordered to document sleep disordered breathing and determine optimal settings. Indication for outpatient BiPAP is hypercarbic respiratory failure. 2. Weight loss recommended as an adjuvant therapy for potential sleep disordered breathing. 3. Continue diuretics under the direction of the patient's primary care provider 4. The patient may require supplemental oxygen prior to discharge. 5. Outpatient PFTs should be conducted to evaluate for potential airflow obstruction. No significant emphysema identified on the CT angiogram. Patient is not bronchospastic and I do not think steroids are indicated at the current time. Given his minimal respiratory symptoms currently, I would not recommend inhalers but rather await for results of the patient's PFTs. 6. The patient does have some mildly enlarged mediastinal lymph nodes on CT scan. These are not particularly worrisome and would not recommend any diagnostic procedures at this point time. Continued radiographic surveillance may be appropriate with a follow-up CT scan in 6 to 12 months. From a pulmonary standpoint, the patient can be dismissed from the hospital with follow-up as noted above. Pulmonary will sign off at this point time. We would be happy to see him back in the pulmonary clinic post discharge if needed. Admission and Anticipated Discharge Date Admission Date: November 07, 2020 Subjective Patient seen and examined. He states he feels okay. He was able to use the CPAP last night for about 5 hours then felt that he was suffocating and took it off. His lower extremity swelling is improved and is having less pain. He is not had fevers chills or night sweats. He is ambulatory. Review of Systems Review of Systems: All systems reviewed & are unremarkable except as noted in HPI & below Physical Exam Constitutional: WD/WN, vitals as above Neck: trachea midline, no thyromegaly Respiratory: normal respiratory effort, lungs clear to auscultation Cardiovascular: RRR, no murmur, no edema Gastrointestinal (Abdomen): normal bowel sounds, soft, nontender, no hepatosplenomegaly Musculoskeletal: Extremities: extremities normal to inspection Skin: no rashes, warm and dry Neurologic: Nonfocal exam Lymphatic: no cervical lymphadenopathy Results & Data Results & Data ([facility]) Vital Signs (Past 12 Hours) Vital Signs Temp Pulse Pulse Pulse Resp BP Pulse Ox 11/09/20 07:30 36.3 C L 87 18 143/77 H 96 11/09/20 07:00 90 11/09/20 05:20 89 11/09/20 04:07 36.8 C 87 18 148/77 H 98 11/09/20 02:49 88 14 97 11/08/20 23:02 36.7 C 94 H 18 154/82 H 92 Laboratory Results 11/09/20 05:58 11/09/20 05:58 Diagnostic Findings Echo reviewed. No evidence of pulmonary hypertension. Diastolic dysfunction is noted. PG Care Time/CCT Total # of Minutes Spent Total Time Spent with Patient: Total time spent is greater than 50% in coordination of care (as documented) at patient's floor/unit and/or counseling patient: Coding Level of Care Code 80346 Subseq Hosp Care Lvl 2 Diagnoses Hypoxia R09.02 Morbid obesity E66.01 Hypercapnic respiratory failure J96.92
[2020-11-09] MEDS ORDERED: BUTALBITAL/ACETAMIN/CAFFEINE TAB PO PRN (16:22)
--- NOTE | 2020-11-09 18:09 | Hospitalist Progress Note ---
Date of Service November 09, 2020 Assessment & Plan (1) Hypoxia: Plan: Acute hypoxemic respiratory failure Bilateral hilar lymphadenopathy Unclear etiology DD:JASSON, Obesity Hypoventilation Syndrome, Pulmonary Hypertension Negative COVID Screen -Chest CTA:No evidence for pulmonary embolus. Mild bilateral hilar lymphadenopathy. [address] follow-up recommended to ensure stability/resolution. ECHO pending Appreciate pulmonary input Continue supplemental oxygen as needed Needs PFTs, polysomnography as outpatient We will obtain nocturnal oximetry, 2 step prior to discharge Check VBG tomorrow Consider discharging on BiPAP 03/04 as recommended by pulmonology if he qualifies Continue diuretics as needed Right LE cellulitis H/O foot trauma ~ 10 days ago Venous Doppler:No DVT within the right lower extremity Foot X ray:No fractures. Continue doxycycline Hypertension BP elevated Increased lisinopril to 10 mg daily BP stable DM II HbA1C: 10.9 in November 2019 Continue insulin therapy Monitor blood glucose levels Hyperlipidemia on statin Past tobacco abuse Currently denies any smoking DVT Px: Lovenox SQ Code Status Full code Admission and Anticipated Discharge Date Admission Date: November 07, 2020 Subjective Patient is seen and examined at bedside Tolerated CPAP overnight for a few hours Right leg pain, erythema improving Eager to get discharged Discussed with patient's family at bedside in detail Still requiring oxygen to maintain saturation Denies chest pain, dyspnea, dizziness, nausea, abdominal pain Review of Systems Review of Systems: All systems reviewed & are unremarkable except as noted in Subjective Physical Exam Physical Exam: Physical Exam: Vitals signs as noted above General Appearance:Morbidly Obese, no apparent distress Head: normocephalic, Atraumatic Eyes: normal inspection, EOMI Neck: supple, Trachea midline Respiratory/Chest: Normal breath sounds, CTA, No accessory muscle use Cardiovascular: S1, S2, No murmur Abdomen/GI:Soft, Non tender, Bowel sounds present Extremities/Musculoskeletal:normal inspection, RLE erythema, non pitting edema Neurologic/Psych:AAOX3, grossly no focal neurological deficits Skin: normal color, warm Results & Data Results & Data ([facility]) Vital Signs (Past 12 Hours) Vital Signs Temp Pulse Pulse Pulse Resp BP Pulse Ox 11/09/20 14:45 36.9 C 91 H 18 132/84 93 11/09/20 14:20 85 11/09/20 11:30 36.7 C 90 16 144/77 H 97 11/09/20 07:30 36.3 C L 87 18 143/77 H 96 11/09/20 07:00 90 Laboratory Results Short CBC 11/09/20 Range/Units 05:58 WBC 6.52 (4.8-10.8) K/uL Hgb 13.2 L (14.0-18.0) g/dL Hct 42.3 (42-52) % Plt Count 177 (130-400) K/uL BMP 11/09/20 05:58 Sodium 141 Potassium 4.2 Chloride 104 Carbon Dioxide 34 H BUN 27 H Creatinine 1.13 Glucose 146 H Calcium 8.8
[2020-11-09] MEDS: ATORVASTATIN 20 MG TAB PO SCH (20:21)
[2020-11-10 05:36] LABS: Hematocrit (blood only) 42.9 % (42-52); Hemoglobin 13.6 g/dL (14.0-18.0); Mean Corpuscular Hgb Conc 31.7 g/dL (32-36); Mean Corpuscular Volume 94.7 fL (80-100); Mean Platelet Volume 8.8 fL (7.4-10.4); Platelet Count 173 K/uL (130-400); RDW Coefficient of Variation 14.2 % (11.5-14.5); RDW Standard Deviation 48.8 fL (36.4-46.3); Red Blood Count 4.53 M/uL (4.7-6.1); White Blood Count 5.48 K/uL (4.8-10.8)
[2020-11-10 05:38] LABS: HCO3 VBG 35 mmol/L; Oxygen Saturation VBG 66.7 %; PCO2 VBG 65 mmHg (38-50); PO2 VBG 40 mmHg; pH VBG 7.35 (7.36-7.41)
[2020-11-10 05:53] LABS: Calcium 8.1 mg/dl (8.5-10.1); Creatinine Clr Calc Pharmacy 110.2 ml/min; Est GFR (African American) 84.1 ml/min; Est GFR (Non-African American) 72.6 ml/min; Potassium 4.1 mmol/L (3.5-5.1)
[2020-11-10] MEDS: FUROSEMIDE 20 MG in SYRINGE 0 ML IV SCH (08:17)
[2020-11-10] MEDS: MULTIVITAMIN TAB PO SCH (08:17)
[2020-11-10] MEDS: INSULIN GLARGINE SOLOSTAR 100 UNITS/ML 3 ML PEN SC SCH (08:18)
[2020-11-10] MEDS: ENOXAPARIN INJ 40 MG/0.4 ML SYR SQ SCH (08:18)
[2020-11-10] MEDS: DOXYCYCLINE HYCLATE 100 MG CAP PO SCH (08:18)
[2020-11-10] MEDS: lisinopril 10 MG TAB PO SCH (08:19)
[2020-11-10] MEDS: INSULIN ASPART 100 UNITS/ML 3 ML PEN SC SCH ×3 (08:20→17:25)
--- NOTE | 2020-11-10 14:23 | Hospitalist Progress Note ---
Date of Service November 10, 2020 Assessment & Plan (1) Hypoxia: Plan: Acute hypoxemic and Hypercarbic respiratory failure-POA Bilateral hilar lymphadenopathy Unclear etiology DD:JASSON, Obesity Hypoventilation Syndrome Negative COVID Screen -Chest CTA:No evidence for pulmonary embolus. Mild bilateral hilar lymphadenopathy. [address] follow-up recommended to ensure stability/resolution. ECHO : Normal LV chamber size with mild concentric LVH. Normal LV systolic function, EF 60 to 65%. No segmental left ventricular wall motion abnormality. Grade 1 diastolic dysfunction. Mild left atrial enlargement. Appreciate pulmonary input Needs PFTs, polysomnography as outpatient Nocturnal oximetry: Needs 3 L of supplemental oxygen with BiPAP at bedtime BiPAP setting 03/04 2 Step:Qualifies for supplemental oxygen 1 L with ambulation Continue diuretics as needed Needs follow-up with pulmonology upon discharge Right LE cellulitis H/O foot trauma ~ 10 days ago Venous Doppler:No DVT within the right lower extremity Foot X ray:No fractures. Continue doxycycline to complete the course Hypertension BP elevated Increased lisinopril to 10 mg daily BP stable DM II HbA1C: 10.9 in November 2019 Continue insulin therapy Monitor blood glucose levels Advised to follow-up with primary care physician for further adjustment of medications for better diabetes management Hyperlipidemia on statin Past tobacco abuse Currently denies any smoking DVT Px: Lovenox SQ Code Status Full code Admission and Anticipated Discharge Date Admission Date: November 07, 2020 Subjective Patient is seen and examined at bedside Right leg pain, swelling, erythema much improved Qualifies for supplemental oxygen 1 L with ambulation and 3 L at bedtime. Also qualifies for BIPAP use Denies chest pain, dyspnea, dizziness, nausea, abdominal pain No other complaints Review of Systems Review of Systems: All systems reviewed & are unremarkable except as noted in Subjective Physical Exam Physical Exam: Physical Exam: Vitals signs as noted above General Appearance:Morbidly Obese, no apparent distress Head: normocephalic, Atraumatic Eyes: normal inspection, EOMI Neck: supple, Trachea midline Respiratory/Chest: Normal breath sounds, CTA, No accessory muscle use Cardiovascular: S1, S2, No murmur Abdomen/GI:Soft, Non tender, Bowel sounds present Extremities/Musculoskeletal:normal inspection, RLE erythema, non pitting edema Neurologic/Psych:AAOX3, grossly no focal neurological deficits Skin: normal color, warm Results & Data Results & Data ([facility]) Vital Signs (Past 12 Hours) Vital Signs Temp Pulse Pulse Pulse Pulse Pulse Pulse 11/10/20 11:11 36.6 C 89 11/10/20 09:51 95 H 96 H 92 H 11/10/20 07:33 36.6 C 86 11/10/20 07:00 86 11/10/20 04:51 90 11/10/20 03:02 36.6 C 90 Pulse Resp Resp Resp Resp Resp BP 11/10/20 11:11 16 152/84 H 11/10/20 09:51 95 H 19 19 18 18 11/10/20 07:33 16 139/86 11/10/20 07:00 11/10/20 04:51 11/10/20 03:02 18 BP Pulse Ox Pulse Ox Pulse Ox Pulse Ox Pulse Ox 11/10/20 11:11 92 11/10/20 09:51 90 84 L 92 90 11/10/20 07:33 90 11/10/20 07:00 11/10/20 04:51 11/10/20 03:02 120/69 91 Laboratory Results Short CBC 11/10/20 Range/Units 05:25 WBC 5.48 (4.8-10.8) K/uL Hgb 13.6 L (14.0-18.0) g/dL Hct 42.9 (42-52) % Plt Count 173 (130-400) K/uL BMP 11/10/20 05:25 Sodium 140 Potassium 4.1 Chloride 106 Carbon Dioxide 33 H BUN 26 H Creatinine 1.10 Glucose 153 H Calcium 8.1 L
--- NOTE | 2020-11-10 14:38 | Discharge Summary ---
Date of Service November 10, 2020 Admission HPI Per Admitting Provider Patient is 60-year-old male with PMH DM II, HTN, HLD, prior tobacco use, morbid obesity presented to ER for right leg pain and swelling x several days. Patient reports chronic bilateral lower extremity edema, left ankle typically worse than right. He reports in past has tried YAMILETH hose without improvement. Patient states several days ago stepped on threshold on floor in his house and since having pain to right foot and right leg. He reports chronic lower extremity discoloration however right lower leg and foot seem to have more red coloration than usual. Was seen at PCPs office for leg pain today and noted to be hypoxic in the 80s and was referred to ER. Patient reports shortness of breath with exertion for several months. Denies chest pain or exertional chest pain. Denies fever, chills, cough. Patient reports that he snores at night and he feels that he may have underlying sleep apnea. Patient reports has gained approximately 20 pounds over the past couple months, feels he has gained weight secondary to the pandemic. Reports palpitations during the middle the night and sometimes awaken from sleep. Patient does not check his blood sugars. 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 Reports smoked for 40 years, quit approximately 12 years ago. Denies fever/chills, diaphoresis, N/V/D/C, BURNS, dizziness, syncope, vision changes, neck pain, sore throat, choking, otalgia, rhinorrhea, abdominal pain, paresthesias, weakness, extremity weakness, other rashes, urinary symptoms. In ER patient afebrile, found to have pulse ox 85% on room air up to 98% on 3 L. No leukocytosis, negative COVID-19 PCR. Chest x-ray no acute process, CTA chest: No PE, mild bilateral hilar lymphadenopathy. RLE venous Doppler negative for DVT Patient being admitted for further evaluation and treatment. Admission Exam Per Admitting Provider Physical Exam Physical Exam: General: no distress, obese Head: normocephalic, atraumatic Eyes: conjunctiva non-injected, anicteric ENT: normal inspection external ears, nose, mucous membranes moist Neck: supple, trachea midline Lungs: no respiratory distress, On 3L oxygen via [place] sat 98%, speaks in full sentences, no wheezing/rhonchi/rales noted CV: distant heart sounds, RRR, no murmur, 1-2+ pretibial edema Abd: +obese, normal BS, soft, non-tender Ext: no cyanosis, +venous stasis skin discoloration bilateral lower legs with right leg with mild erythema, no calf tenderness to palpation, +tenderness to palpation bilateral lower anterior legs, distal pulses palpable, sensation to light touch intact Neuro: A&O x 3, no focal deficits noted, normal affect Skin: warm, dry Principal Diagnosis Acute hypoxemic and Hypercarbic respiratory failure Right Leg cellulitis Uncontrolled diabetes mellitus Discharge Data Allergies Allergy/AdvReac Type Severity Reaction Status Date / Time No Known Allergies Allergy Mild Unverified 11/07/20 20:22 Consultations 11/07/20 21:15 ED Decision to Admit Stat 11/08/20 01:03 Consult Pulmonology Routine Ordered Studies 11/07/20 19:29 CT angio chest PE protocol Stat US venous doppler LE RT Stat 11/07/20 22:39 US abdomen ltd ascites Urgent Hospital Course (1) Hypoxia: Acute hypoxemic and Hypercarbic respiratory failure-POA Bilateral hilar lymphadenopathy Unclear etiology DD:JASSON, Obesity Hypoventilation Syndrome Negative COVID Screen -Chest CTA:No evidence for pulmonary embolus. Mild bilateral hilar lymphadenopathy. [address] follow-up recommended to ensure stability/resolution. ECHO : Normal LV chamber size with mild concentric LVH. Normal LV systolic function, EF 60 to 65%. No segmental left ventricular wall motion abnormality. Grade 1 diastolic dysfunction. Mild left atrial enlargement. Appreciate pulmonary input Needs PFTs, polysomnography as outpatient Nocturnal oximetry: Needs 3 L of supplemental oxygen with BiPAP at bedtime BiPAP setting 03/04 2 Step:Qualifies for supplemental oxygen 1 L with ambulation Continue diuretics as needed Needs follow-up with pulmonology upon discharge Right LE cellulitis H/O foot trauma ~ 10 days ago Venous Doppler:No DVT within the right lower extremity Foot X ray:No fractures. Continue doxycycline to complete the course Hypertension BP elevated Increased lisinopril to 10 mg daily BP stable DM II HbA1C: 10.9 in November 2019 Continue insulin therapy Monitor blood glucose levels Advised to follow-up with primary care physician for further adjustment of medications for better diabetes management Hyperlipidemia on statin Past tobacco abuse Currently denies any smoking DVT Px: Lovenox SQ Code Status Full code Total Time Total Time Spent Total Time Spent (In Minutes): 43 minutes Discharge Plan Discharge Items Patient Disposition: Home - Self-Care Reason For Visit: RESP FAILURE Discharge Diagnosis: Acute hypoxemic and Hypercarbic respiratory failure Right Leg cellulitis Uncontrolled diabetes mellitus Activity: Per Instructions section Exercise/Sports: Wait until after follow-up appointment Non-emergency contact: Primary Care Provider and Cbx Operator Call non-emergency contact if: you have any medication questions, your symptoms worsen, your pain is concerning for you and you have a fever Follow-up/Referrals: Kimberly Hernández, [Primary Care Provider] - (Date & Time 11/13/2020 11:20 AM Provider Jack Hopkins MD Department Family Medicine [facility] ) Diet: Carb Consistent or DM2 and Heart Healthy Addtl Attending Provider Instructions: Follow-up with your primary care physician on 11/13/2020 11:20 AM Follow-up with your operations and maintenance technican as advised. --Get lung function tests, polysomnography as outpatient to rule out obstructive sleep apnea, and other conditions for respiratory failure. --Use supplemental oxygen: 1 L with activity and 3 L at bedtime along with BiPAP 12/8 setting. --Complete the antibiotic course--doxycycline as prescribed. --Discussed with your primary care physician for further adjustment of your medications for diabetes management as advised. Seek immediate medical attention if your symptoms reoccur or worsen Please take all medications as instructed on discharge list below. Please call if you have any questions or problems. You can reach a [facility] hospitalist on duty at [facility] 24 hours a day by calling [phone] Pending Studies at Discharge: No Stand-Alone Forms: My [facility] [address] [employer], Smoking Cessation Medications and DC Order Prescriptions: New doxycycline hyclate 100 mg Capsule 100 mg PO BID Qty: 14 RF: 0 Continued atorvastatin 20 mg tablet 20 mg PO HS RF: 0 metformin 1,000 mg tablet 1,000 mg PO BID RF: 0 hydrochlorothiazide 12.5 mg capsule 12.5 mg PO DAILY RF: 0 pioglitazone 30 mg tablet 30 mg PO DAILY RF: 0 multivitamin Tablet 1 tab PO DAILY RF: 0 loperamide 2 mg Capsule 2 mg PO Q4H PRN (Reason: Diarrhea) RF: 0 glimepiride 4 mg tablet 8 mg PO QDD RF: 0 Changed lisinopril 5 mg tablet 10 mg PO DAILY Qty: 60 RF: 0 Discharge Orders: Discharge Order (Routine); Ordered 11/10/20 Ordered By: Ghassan Smith Admission Data Admit Date/Time: 11/07/20 22:42 Attending Provider: Ghassan Smith Admit Provider: Robert Kohler Primary Care Provider: Kimberly Hernández Other Providers: Robert Kohler ; Canelo Orozco ; Chandler Villagran ; Yung Pratt ; Nadeem Coppola ; Meek Rivera Other Interventions: Discharge Summary Assessment (RN) Last Done: 11/10/20 15:06
== END 2020-11-10 19:42 | disposition home or self-care (01) | DRG 205 ==
LOC: ED 19:11 → 2W 22:42

== ENCOUNTER 2021-02-21 08:11 | Observation (INO) ==
[2021-02-21 08:44] LABS: Basophils # (auto) 0.02 K/uL (0-0.2); Basophils % (auto) 0.3 %; Eosinophils # (auto) 0.18 K/uL (0-0.5); Eosinophils % (auto) 2.4 %; Hematocrit (blood only) 41.2 % (42-52); Hemoglobin 13.6 g/dL (14.0-18.0); Immature Granulocytes # (auto) 0.02 K/uL (0.00-0.02); Immature Granulocytes % (auto) 0.3 %; Lymphocytes # (auto) 1.17 K/uL (1.2-3.4); Lymphocytes % (auto) 15.8 %; Mean Corpuscular Volume 90.7 fL (80-100); Mean Platelet Volume 9.6 fL (7.4-10.4); Monocytes # (auto) 0.41 K/uL (0.11-0.59); Monocytes % (auto) 5.5 %; Neutrophils # (auto) 5.59 K/uL (1.4-6.5); Neutrophils % (auto) 75.7 %; Platelet Count 193 K/uL (130-400); RDW Coefficient of Variation 14.1 % (11.5-14.5); Red Blood Count 4.54 M/uL (4.7-6.1); White Blood Count 7.39 K/uL (4.8-10.8)
--- NOTE | 2021-02-21 08:52 | Emergency Department Note ---
Impression & Plan Syncope, Abnormal EKG, RONALDO (acute kidney injury) ED Provider Note NAME: DANNI RAMIREZ AGE: 60 SEX: M : 1960 ARRIVES VIA: Ambulance INFORMANT: Patient, ED PROVIDER(S): Brian Arredondo DO CHIEF COMPLAINT: Syncope HPI: The patient is a 60-year-old male who presented to emergency department after having a syncopal episode. The patient states he was trying to load a trailer onto a ball hitch and passed out. He states he was exerting himself significantly. He awoke and appears to be at his baseline right now. The patient denies having any chest pain or difficulty breathing. He denies having any headache. He has had no abdominal pain. He has had no recent UTI symptoms. He notices no black or bloody bowel movements. He did have an abrasion on his left flank as well as his left hand. He denies having any neck pain or back pain. He states he does feel back to baseline at this time. The patient was in our facility recently because of sepsis. He was able to be discharged and appeared to be active baseline. The patient is a history of diabetes and hypertension. He has been compliant with his usual medications. ROS: See above HPI for pertinent positives & negatives. A total of 10 systems reviewed and were otherwise negative. PAST MEDICAL HISTORY: See Below PAST SURGICAL HISTORY: See Below FAMILY HISTORY: See Below SOCIAL HISTORY: See Below HOME MEDICATIONS: See Below ALLERGIES: See Below VITALS: See Below PHYSICAL EXAMINATION: GENERAL: Patient is awake alert in no acute distress patient is resting comfortably and showing no signs of anxiety EYES: The conjunctivae are clear. The pupils are round and reactive. EARS, NOSE, MOUTH AND THROAT: The nose is without any evidence of any deformity. NECK: The neck is nontender and supple. RESPIRATORY: Normal respiratory effort is noted there is no evidence of wheezing rhonchi or rales CARDIOVASCULAR: Regular rate and rhythm noted there no murmurs rubs or gallops normal S1 normal S2. GASTROINTESTINAL: The abdomen is soft. Abdomen is nontender. MUSCULOSKELETAL/EXTREMITIES: There is no evidence of gross deformity full range of motion is noted in the hips and shoulders. SKIN: Pedal edema was noted bilaterally. Venous stasis changes were noted in both legs. There was an abrasion over the left flank. There was no active bleeding or laceration. There is a small abrasion on the left hand. No active bleeding was noted. NEUROLOGIC: Patient is awake alert and oriented x3. Strength was symmetric. MEDICAL DECISION MAKING: The patient is a 60-year-old male who presented to the emergency department after having a syncopal episode. The patient was exerting himself by lifting a trailer to put onto a ball hitch when he passed out. The patient presented to the emergency department awake and alert. He did have a small abrasion on his flank. I discussed the patient's laboratory and radiographic studies with him. He was found to have an EKG with some electro abnormalities compared to previous. I discussed the patient's condition with the on-call [facility] hospitalist. I also discussed his case with the on-call [facility] well puller head. Given the patient's exertional syncope I do feel he might benefit from inpatient management and observation. The patient was reevaluated multiple times. He was agreeable to this plan. Triage Nursing notes reviewed. Prior medical records reviewed Vital Signs: reviewed and remarkable for tachycardia. Differential diagnosis: Vasovagal event, dehydration, infection, hypoglycemia, electrolyte abnormalities, cardiac sources, intracerebral event, pulmonary embolism, seizure, toxicologic, neurologic, as well as other pathologies. ER treatment provided: See below Diagnostics interpreted by me: ECG: EKG was obtained in the emergency department. My interpretation is sinus rhythm at 98 bpm. First-degree AV block was noted. A right bundle branch block pattern was suggested. Inferior T wave versions were also present. This was compared to a tracing from November 072020. The bundle branch block as well as the T wave abnormalities are new compared to the previous tracing. Cardiac Monitoring: An order was placed for continuous cardiac monitoring. The monitor shows a rate of 112 bpm with sinus tachycardia. Laboratory studies: As stated above and show below. Imaging studies: See below Consultation(s): 1200: I discussed this case with Dr. Aguayo who is on-call for the [facility] cardiology group. 1220: I discussed this case with Tiffani who is on-call for the [facility] hospitalist group. They will evaluate the patient in the emergency department for further management and disposition. Past Med/Surg History Medical History (Updated 02/21/21 @ 15:58 by Brian Arredondo DO) Diabetes mellitus, type II HLD (hyperlipidemia) HTN (hypertension) Morbid obesity No pertinent family history JASSON (obstructive sleep apnea) Surgical History No pertinent past surgical history Family History Other Diabetes Social History Smoking Status: Former smoker Cigarettes Per Day: 1; Second Hand Exposure: No; Hx Alcohol Use: Yes Alcohol type: beer Hx Substance Use: No Preferred Language: Romanian Communication Ability: Effective Track Fitter Required: No Beliefs That Will Affect Care: None marital status: Current Living Situation: Spouse How many Children do You have: 3 Feels Safe at Home: Yes Assistive Devices: Oxygen - Continuous Allergies Allergies Allergy/AdvReac Type Severity Reaction Status Date / Time No Known Allergies Allergy Mild Unverified 02/21/21 09:31 Home Meds Home Medications Medication Instructions Recorded Confirmed atorvastatin 20 mg tablet 20 mg PO HS 11/07/20 02/21/21 glimepiride 4 mg tablet 8 mg PO QDD 11/07/20 02/21/21 metformin 1,000 mg tablet 1,000 mg PO BID 11/07/20 02/21/21 multivitamin 1 tab PO DAILY 11/07/20 02/21/21 pioglitazone 30 mg tablet 30 mg PO DAILY 11/07/20 02/21/21 dulaglutide 1.5 mg/0.5 mL 0 mg SUBCUT UD 02/21/21 02/21/21 subcutaneous pen injector (Trulicity) furosemide 20 mg tablet 20 mg PO DAILY 02/21/21 02/21/21 gabapentin 100 mg capsule 200 mg PO TID 02/21/21 02/21/21 hydrochlorothiazide 25 mg tablet 25 mg PO DAILY 02/21/21 02/21/21 Previous Rx's Medication Instructions Recorded lisinopril 5 mg tablet 10 mg PO DAILY #60 tab 11/10/20 Results & Data (ED) Vital Signs Vital Signs - 24 hr 02/21/21 07:48 02/21/21 08:29 02/21/21 08:33 Temperature 36.6 C Temperature Source Oral Pulse Rate - Lying Pulse Rate - Sitting Pulse Rate - Standing Pulse Rate 102 H Pulse Rate [Apical] 97 H Pulse Rate from SpO2 Sensor Pulse Rhythm [Apical] Respiratory Rate 19 22 Respiratory Effort / Characteristics Non-Labored Spontaneous Respiratory Depth Normal Respiratory Pattern Regular Blood Pressure - Lying Blood Pressure - Sitting Blood Pressure- Standing Blood Pressure 125/91 Blood Pressure [Right Arm] 146/97 H Blood Pressure Mean 102 Blood Pressure Mean [Right Arm] 113 Blood Pressure Position [Right Arm] Lying Pulse Oximetry 94 94 Oxygen Delivery Method Room Air Room Air Room Air Sepsis Recent Fever Within 48 Hours No Sepsis New/Unexplained Change in Mental Status No Sepsis Action Taken by Nursing No Action Required 02/21/21 08:37 02/21/21 10:00 02/21/21 10:30 Temperature Temperature Source Pulse Rate - Lying Pulse Rate - Sitting Pulse Rate - Standing Pulse Rate 103 H Pulse Rate [Apical] 103 H Pulse Rate from SpO2 Sensor Pulse Rhythm [Apical] Regular Respiratory Rate 15 20 Respiratory Effort / Characteristics Non-Labored Spontaneous Respiratory Depth Normal Respiratory Pattern Blood Pressure - Lying Blood Pressure - Sitting Blood Pressure- Standing Blood Pressure 123/99 Blood Pressure [Right Arm] 152/90 H Blood Pressure Mean 107 Blood Pressure Mean [Right Arm] 110 Blood Pressure Position [Right Arm] Sitting Pulse Oximetry 97 Oxygen Delivery Method Room Air Room Air Sepsis Recent Fever Within 48 Hours Sepsis New/Unexplained Change in Mental Status Sepsis Action Taken by Nursing 02/21/21 12:30 02/21/21 12:55 02/21/21 12:58 Temperature Temperature Source Pulse Rate - Lying 98 H Pulse Rate - Sitting 104 H Pulse Rate - Standing 108 H Pulse Rate Pulse Rate [Apical] 101 H Pulse Rate from SpO2 Sensor Pulse Rhythm [Apical] Respiratory Rate 18 Respiratory Effort / Characteristics Non-Labored Spontaneous Respiratory Depth Normal Respiratory Pattern Blood Pressure - Lying 171/125 H Blood Pressure - Sitting 151/123 H Blood Pressure- Standing 123/86 Blood Pressure Blood Pressure [Right Arm] 153/111 H Blood Pressure Mean Blood Pressure Mean [Right Arm] 125 Blood Pressure Position [Right Arm] Sitting Pulse Oximetry 98 Oxygen Delivery Method Room Air Room Air Sepsis Recent Fever Within 48 Hours Sepsis New/Unexplained Change in Mental Status Sepsis Action Taken by Nursing 02/21/21 13:00 02/21/21 13:15 02/21/21 14:00 Temperature Temperature Source Pulse Rate - Lying Pulse Rate - Sitting Pulse Rate - Standing Pulse Rate 108 H 103 H 101 H Pulse Rate [Apical] Pulse Rate from SpO2 Sensor 104 H 100 H Pulse Rhythm [Apical] Respiratory Rate 22 13 19 Respiratory Effort / Characteristics Respiratory Depth Respiratory Pattern Blood Pressure - Lying Blood Pressure - Sitting Blood Pressure- Standing Blood Pressure 123/86 113/75 Blood Pressure [Right Arm] Blood Pressure Mean 98 87 Blood Pressure Mean [Right Arm] Blood Pressure Position [Right Arm] Pulse Oximetry 94 86 L Oxygen Delivery Method Sepsis Recent Fever Within 48 Hours Sepsis New/Unexplained Change in Mental Status Sepsis Action Taken by Nursing 02/21/21 14:13 02/21/21 14:30 02/21/21 15:00 Temperature Temperature Source Pulse Rate - Lying Pulse Rate - Sitting Pulse Rate - Standing Pulse Rate 99 H 100 H 112 H Pulse Rate [Apical] Pulse Rate from SpO2 Sensor 99 H Pulse Rhythm [Apical] Respiratory Rate 22 16 17 Respiratory Effort / Characteristics Non-Labored Spontaneous Respiratory Depth Normal Respiratory Pattern Regular Blood Pressure - Lying Blood Pressure - Sitting Blood Pressure- Standing Blood Pressure 136/99 113/69 Blood Pressure [Right Arm] Blood Pressure Mean 111 83 Blood Pressure Mean [Right Arm] Blood Pressure Position [Right Arm] Pulse Oximetry 97 94 96 Oxygen Delivery Method Room Air Sepsis Recent Fever Within 48 Hours Sepsis New/Unexplained Change in Mental Status Sepsis Action Taken by [facility] Medications Current Medication List: was personally reviewed by me Laboratory Data Attestation: I reviewed the patient's lab results. Result diagrams: 02/21/21 08:35 02/21/21 08:35 Lab Results 02/21/21 02/21/21 02/21/21 Range/Units 08:35 08:35 08:35 WBC 7.39 (4.8-10.8) K/uL RBC 4.54 L (4.7-6.1) M/uL Hgb 13.6 L (14.0-18.0) g/dL Hct 41.2 L (42-52) % MCV 90.7 (80-100) fL MCH 30.0 (25-34) pg MCHC 33.0 (32-36) g/dL RDW Std Deviation 47.0 H (36.4-46.3) fL RDW Coeff of Solomon 14.1 (11.5-14.5) % Plt Count 193 (130-400) K/uL MPV 9.6 (7.4-10.4) fL Immature Gran % (Auto) 0.3 % Neut % (Auto) 75.7 % Lymph % (Auto) 15.8 % Lamar % (Auto) 5.5 % Eos % (Auto) 2.4 % Baso % (Auto) 0.3 % Neut # (Auto) 5.59 (1.4-6.5) K/uL Lymph # (Auto) 1.17 L (1.2-3.4) K/uL Lamar # (Auto) 0.41 (0.11-0.59) K/uL Eos # (Auto) 0.18 (0-0.5) K/uL Baso # (Auto) 0.02 (0-0.2) K/uL Immature Gran # (Auto) 0.02 (0.00-0.02) K/uL PT 10.3 (9.0-12.0) Seconds INR 1.0 (0.9-1.1) APTT 23.4 (21.0-31.0) Seconds PTT Ratio 0.9 D-Dimer (0-500) ug/L FEU Sodium 139 (136-145) mmol/L Potassium 4.7 (3.5-5.1) mmol/L Chloride 105 (98-107) mmol/L Carbon Dioxide 24 (21-32) mmol/L Anion Gap 10.0 (3-11) BUN 40 H (7-18) mg/dl Creatinine 1.62 H (0.6-1.4) mg/dl Est Cr Clr Drug Dosing 70.2 ml/min Est GFR ( Amer) 52.7 ml/min Est GFR (Non-Af Amer) 45.5 ml/min BUN/Creatinine Ratio 24.8 H (10-20) Glucose 228 H (70-99) mg/dl POC Glucose (70-99) mg/dl Estimat Average Glucose mg/dl Hemoglobin A1c (4.5-5.6) % Calcium 9.0 (8.5-10.1) mg/dl Magnesium 2.0 (1.8-2.4) mg/dl Total Bilirubin 0.4 (0.2-1) mg/dl AST 15 (15-37) U/L ALT 27 (12-78) U/L Alkaline Phosphatase 97 (45-117) U/L Total Creatine Kinase 174 (39-308) U/L CK-MB (CK-2) 4.8 H (0.5-3.6) ng/ml CK/CKMB % Calc 2.8 (0-3.0) Troponin I < 0.015 (0-0.045) ng/ml Total Protein 7.7 (6.4-8.2) gm/dl Albumin 3.3 L (3.4-5.0) gm/dl Globulin 4.4 H (2.5-4.0) gm/dl Albumin/Globulin Ratio 0.8 L (0.9-2) Lipase 131 (73-393) U/L TSH 2.260 (0.300-4.500) uIu/ml Urine Color Urine Appearance (Clear) Urine pH (4.5-7.5) Ur Specific Avella (1.000-1.030) Urine Protein (Negative) Urine Glucose (UA) (Negative) Urine Ketones (Negative) Urine Blood (Negative) Urine Nitrite (Negative) Urine Bilirubin (Negative) Urine Urobilinogen (Negative) Ur Leukocyte Esterase (Negative) Urine WBC (Auto) (0-5) /hpf Urine RBC (Auto) (0-4) /hpf U Hyaline Cast (Auto) (0-5) /lpf U Epithel Cells (Auto) (0-5) /lpf Urine Bacteria (Auto) (Negative) SARS-CoV-2, RNA, NAAT (NEGATIVE) 02/21/21 02/21/21 02/21/21 Range/Units 08:35 08:50 08:50 WBC (4.8-10.8) K/uL RBC (4.7-6.1) M/uL Hgb (14.0-18.0) g/dL Hct (42-52) % MCV (80-100) fL MCH (25-34) pg MCHC (32-36) g/dL RDW Std Deviation (36.4-46.3) fL RDW Coeff of Solomon (11.5-14.5) % Plt Count (130-400) K/uL MPV (7.4-10.4) fL Immature Gran % (Auto) % Neut % (Auto) % Lymph % (Auto) % Lamar % (Auto) % Eos % (Auto) % Baso % (Auto) % Neut # (Auto) (1.4-6.5) K/uL Lymph # (Auto) (1.2-3.4) K/uL Lamar # (Auto) (0.11-0.59) K/uL Eos # (Auto) (0-0.5) K/uL Baso # (Auto) (0-0.2) K/uL Immature Gran # (Auto) (0.00-0.02) K/uL PT (9.0-12.0) Seconds INR (0.9-1.1) APTT (21.0-31.0) Seconds PTT Ratio D-Dimer 2170 H* (0-500) ug/L FEU Sodium (136-145) mmol/L Potassium (3.5-5.1) mmol/L Chloride (98-107) mmol/L Carbon Dioxide (21-32) mmol/L Anion Gap (3-11) BUN (7-18) mg/dl Creatinine (0.6-1.4) mg/dl Est Cr Clr Drug Dosing ml/min Est GFR ( Amer) ml/min Est GFR (Non-Af Amer) ml/min BUN/Creatinine Ratio (10-20) Glucose (70-99) mg/dl POC Glucose (70-99) mg/dl Estimat Average Glucose 174 mg/dl Hemoglobin A1c 7.7 H (4.5-5.6) % Calcium (8.5-10.1) mg/dl Magnesium (1.8-2.4) mg/dl Total Bilirubin (0.2-1) mg/dl AST (15-37) U/L ALT (12-78) U/L Alkaline Phosphatase (45-117) U/L Total Creatine Kinase (39-308) U/L CK-MB (CK-2) (0.5-3.6) ng/ml CK/CKMB % Calc (0-3.0) Troponin I (0-0.045) ng/ml Total Protein (6.4-8.2) gm/dl Albumin (3.4-5.0) gm/dl Globulin (2.5-4.0) gm/dl Albumin/Globulin Ratio (0.9-2) Lipase (73-393) U/L TSH (0.300-4.500) uIu/ml Urine Color Urine Appearance (Clear) Urine pH (4.5-7.5) Ur Specific Avella (1.000-1.030) Urine Protein (Negative) Urine Glucose (UA) (Negative) Urine Ketones (Negative) Urine Blood (Negative) Urine Nitrite (Negative) Urine Bilirubin (Negative) Urine Urobilinogen (Negative) Ur Leukocyte Esterase (Negative) Urine WBC (Auto) (0-5) /hpf Urine RBC (Auto) (0-4) /hpf U Hyaline Cast (Auto) (0-5) /lpf U Epithel Cells (Auto) (0-5) /lpf Urine Bacteria (Auto) (Negative) SARS-CoV-2, RNA, NAAT NEGATIVE (NEGATIVE) 02/21/21 02/21/21 Range/Units 08:54 14:24 WBC (4.8-10.8) K/uL RBC (4.7-6.1) M/uL Hgb (14.0-18.0) g/dL Hct (42-52) % MCV (80-100) fL MCH (25-34) pg MCHC (32-36) g/dL RDW Std Deviation (36.4-46.3) fL RDW Coeff of Solomon (11.5-14.5) % Plt Count (130-400) K/uL MPV (7.4-10.4) fL Immature Gran % (Auto) % Neut % (Auto) % Lymph % (Auto) % Lamar % (Auto) % Eos % (Auto) % Baso % (Auto) % Neut # (Auto) (1.4-6.5) K/uL Lymph # (Auto) (1.2-3.4) K/uL Lamar # (Auto) (0.11-0.59) K/uL Eos # (Auto) (0-0.5) K/uL Baso # (Auto) (0-0.2) K/uL Immature Gran # (Auto) (0.00-0.02) K/uL PT (9.0-12.0) Seconds INR (0.9-1.1) APTT (21.0-31.0) Seconds PTT Ratio D-Dimer (0-500) ug/L FEU Sodium (136-145) mmol/L Potassium (3.5-5.1) mmol/L Chloride (98-107) mmol/L Carbon Dioxide (21-32) mmol/L Anion Gap (3-11) BUN (7-18) mg/dl Creatinine (0.6-1.4) mg/dl Est Cr Clr Drug Dosing ml/min Est GFR ( Amer) ml/min Est GFR (Non-Af Amer) ml/min BUN/Creatinine Ratio (10-20) Glucose (70-99) mg/dl POC Glucose 120 H (70-99) mg/dl Estimat Average Glucose mg/dl Hemoglobin A1c (4.5-5.6) % Calcium (8.5-10.1) mg/dl Magnesium (1.8-2.4) mg/dl Total Bilirubin (0.2-1) mg/dl AST (15-37) U/L ALT (12-78) U/L Alkaline Phosphatase (45-117) U/L Total Creatine Kinase (39-308) U/L CK-MB (CK-2) (0.5-3.6) ng/ml CK/CKMB % Calc (0-3.0) Troponin I (0-0.045) ng/ml Total Protein (6.4-8.2) gm/dl Albumin (3.4-5.0) gm/dl Globulin (2.5-4.0) gm/dl Albumin/Globulin Ratio (0.9-2) Lipase (73-393) U/L TSH (0.300-4.500) uIu/ml Urine Color Yellow Urine Appearance Clear (Clear) Urine pH 5.0 (4.5-7.5) Ur Specific Avella 1.012 (1.000-1.030) Urine Protein Negative (Negative) Urine Glucose (UA) Negative (Negative) Urine Ketones Negative (Negative) Urine Blood 1+ H (Negative) Urine Nitrite Negative (Negative) Urine Bilirubin Negative (Negative) Urine Urobilinogen Negative (Negative) Ur Leukocyte Esterase Negative (Negative) Urine WBC (Auto) 1-5 (0-5) /hpf Urine RBC (Auto) 0-4 (0-4) /hpf U Hyaline Cast (Auto) 1-5 (0-5) /lpf U Epithel Cells (Auto) 5-10 H (0-5) /lpf Urine Bacteria (Auto) Negative (Negative) SARS-CoV-2, RNA, NAAT (NEGATIVE) Administered Medications Acetaminophen (Acetaminophen 325 Mg Tab) 650 mg PO Q4H PRN PRN Reason: Pain or Fever Stop: 03/23/21 12:56 Last Admin: 02/21/21 13:28 Dose: 650 mg Documented by: [id number] Enoxaparin Sodium (Enoxaparin Inj 40 Mg/0.4 Ml Syr) 40 mg SQ Q24H [facility] Stop: 03/23/21 13:59 Last Admin: 02/21/21 14:28 Dose: 40 mg Documented by: [id number] Sodium Chloride (Nss 1000ml) 1,000 mls @ 80 mls/hr IV .[id number] [facility] Stop: 03/23/21 12:59 Last Admin: 02/21/21 13:08 Dose: 80 mls/hr Documented by: [id number] Discontinued Medications Ioversol (Optiray 320 125ml) 120 ml IV ONCE ONE Stop: 02/21/21 10:52 Last Admin: 02/21/21 10:52 Dose: 120 ml Documented by: [id number] Imaging Data Radiologist's Impression: Chest X-Ray 02/21/21 08:34 SINGLE VIEW CHEST CLINICAL HISTORY: Syncope FINDINGS: An AP, portable, upright chest radiograph is compared to chest x-ray and chest CT dated 11/07/2020. The heart is top normal for projection. There is mild bibasilar scarring/atelectasis. The lungs and pleural spaces are otherwise clear. No pneumothorax is seen. The bony thorax is grossly intact. IMPRESSION: No active disease in the chest. ACT 112: Negative or not required by law. Electronically signed by: Chandler Alonso M.D. 02/21/2021 8:54 AM Chest CTA 02/21/21 09:49 CT ANGIOGRAM OF THE CHEST CLINICAL HISTORY: Syncope. COMPARISON STUDY: Chest x-ray dated 02/21/2021. Chest CT dated 11/07/2020. TECHNIQUE: Following the IV administration of 120 cc of Optiray 320, CT angiogram of the chest was performed from the upper abdomen to the thoracic inlet utilizing the pulmonary embolus protocol. Images are reviewed in the axial, sagittal, and coronal planes. 3-D MIPS images are created and assessed. IV contrast was administered without complication. A dose lowering technique was utilized adhering to the principles of ALARA. There is significant streak artifact from the left arm which could not be elevated above the chest. CT DOSE: 566.96 mGycm FINDINGS: Thyroid: Imaged portions of the thyroid gland are normal in size and attenuation. Thoracic aorta: There is mild atherosclerotic calcification of the thoracic aorta, which is normal in caliber and demonstrates standard 3-vessel arch anatomy. No dissection is seen. Pulmonary vasculature: The pulmonary trunk is normal in caliber. There are no filling defects identified in main, lobar, or segmental pulmonary branches to suggest pulmonary embolus. Heart: The heart is normal in size and without pericardial effusion. Lungs and pleural spaces: Mild emphysematous change is noted at the apices. There is no airspace consolidation or pleural effusion. The trachea and central airways are clear. Minimal dependent atelectasis is seen at the lung bases. Mediastinum: There is no mediastinal lymphadenopathy. Gosia: Clear. Axillae: There is no axillary lymphadenopathy. Upper abdomen: Partially visualized upper abdominal viscera is within normal limits. Skeletal structures: There are healed left-sided rib fractures. Mild spondylotic changes noted throughout the thoracic spine. No lytic or blastic bony lesions are seen. IMPRESSION: 1. There is no evidence of pulmonary embolus in the main, lobar, or segmental pulmonary arteries. 2. There is no airspace consolidation or pleural effusion. ACT 112: Negative or not required by law. Electronically signed by: Chandler Alonso M.D. 02/21/2021 11:[address] 02/21/21 09:49 CT SCAN OF THE BRAIN WITHOUT IV CONTRAST CLINICAL HISTORY: Fall. Syncope. COMPARISON STUDY: No priors. TECHNIQUE: Unenhanced axial CT scan of the brain is performed from the vertex to the skull base. A dose lowering technique was utilized adhering to the principles of ALARA. FINDINGS: Brain parenchyma: There is minimal microangiopathic change. There is no hemorrha ge, mass effect, or evidence of acute territorial ischemia by CT criteria. De Luna- white matter differentiation is preserved. No extra-axial fluid collection is seen. Ventricles, sulci, cisterns: Normal in configuration. Intracranial vasculature: There is atherosclerotic calcification of the cavernous carotid arteries. Calvarium: There is no depressed calvarial fracture. Sinuses and mastoids: The visualized paranasal sinuses are clear. The mastoid air cells are well pneumatized. Orbits: The bony orbits are grossly intact. IMPRESSION: There is no hemorrhage, mass effect, or evidence of acute territorial ischemia by CT criteria. ACT 112: Negative or not required by law. Electronically signed by: Chandler Alonso M.D. 02/21/2021 10:31 AM Discharge Plan Visit Data Chief Complaint: Syncope Stated Complaint: SYNCOPE ED Provider: Brian Arredondo Discharge Problem: Syncope, Abnormal EKG, RONALDO (acute kidney injury) Patient Disposition: Being Evaluated by Hospitalist
[2021-02-21 08:54] LABS: Partial Thromboplastin Ratio 0.9; Partial Thromboplastin Time 23.4 Seconds (21.0-31.0); Prothrombin Time 10.3 Seconds (9.0-12.0)
--- NOTE | 2021-02-21 08:55 | XRay Report ---
SINGLE VIEW CHEST CLINICAL HISTORY: Syncope FINDINGS: An AP, portable, upright chest radiograph is compared to chest x-ray and chest CT dated 10/26. The heart is top normal for projection. There is mild bibasilar scarring/atelectasis. The dano gs and pleural spaces are otherwise clear. No pneumothorax is seen. The bony thorax is grossly intact . IMPRESSION: No active disease in the chest. ACT 112: Negative or not required by law. Electronically signed by: Chandler Alonso M.D. 02/21/2021 8:54 AM
[2021-02-21 09:01] LABS: Alanine Aminotransferase 27 U/L (12-78); Albumin Level 3.3 gm/dl (3.4-5.0); Aspartate Aminotransferase 15 U/L (15-37); BUN Creatinine Ratio 24.8 (10-20); Blood Urea Nitrogen 40 mg/dl (7-18); Carbon Dioxide 24 mmol/L (21-32); Chloride 105 mmol/L (98-107); Creatinine Clr Calc Pharmacy 70.2 ml/min; Est GFR (African American) 52.7 ml/min; Est GFR (Non-African American) 45.5 ml/min; Glucose 228 mg/dl (70-99); Lipase 131 U/L (73-393); Potassium 4.7 mmol/L (3.5-5.1); Sodium 139 mmol/L (136-145)
[2021-02-21 09:06] LABS: Appearance Urine Clear (Clear); Bacteria Urine Automated Negative (Negative); Bilirubin Urine Negative (Negative); Blood Urine 1+ (Negative); Color Urine Yellow; Glucose Urine UA Negative (Negative); Ketones Urine Negative (Negative); Leukocyte Esterase Urine Negative (Negative); Nitrite Urine Negative (Negative); Protein Urine Negative (Negative); RBC Urine Automated 0-4 /hpf (0-4); Specific Gravity Urine 1.012 (1.000-1.030); Urobilinogen Urine Negative (Negative)
[2021-02-21 09:11] LABS: Albumin Globulin Ratio 0.8 (0.9-2); Alkaline Phosphatase 97 U/L (45-117); Bilirubin,Total 0.4 mg/dl (0.2-1); Creatine Kinase 174 U/L (39-308); Creatine Kinase MB 4.8 ng/ml (0.5-3.6); Globulin 4.4 gm/dl (2.5-4.0); Total Protein 7.7 gm/dl (6.4-8.2); Troponin I < 0.015 ng/ml (0-0.045)
[2021-02-21 09:48] LABS: D Dimer 2170 ug/L FEU (0-500)
--- NOTE | 2021-02-21 10:32 | CT Scan Report ---
CT SCAN OF THE BRAIN WITHOUT IV CONTRAST CLINICAL HISTORY: Fall. Syncope. COMPARISON STUDY: No priors. TECHNIQUE: Unenhanced axial CT scan of the brain is performed from the vertex to the skull base. A d ose lowering technique was utilized adhering to the principles of ALARA. FINDINGS: Brain parenchyma: There is minimal microangiopathic change. There is no hemorrhage, mass effect, or e vidence of acute territorial ischemia by CT criteria. De Luna-white matter differentiation is preserved. No extra-axial fluid collection is seen. Ventricles, sulci, cisterns: Normal in configuration. Intracranial vasculature: There is atherosclerotic calcification of the cavernous carotid arteries. Calvarium: There is no depressed calvarial fracture. Sinuses and mastoids: The visualized paranasal sinuses are clear. The mastoid air cells are well pneu matized. Orbits: The bony orbits are grossly intact. IMPRESSION: There is no hemorrhage, mass effect, or evidence of acute territorial ischemia by CT beverley robles. ACT 112: Negative or not required by law. Electronically signed by: Chandler Alonso M.D. 02/21/2021 10:31 AM
[2021-02-21] MEDS ORDERED: OPTIRAY 320 125ml IV ONE (10:51)
--- NOTE | 2021-02-21 11:09 | CT Scan Report ---
CT ANGIOGRAM OF THE CHEST CLINICAL HISTORY: Syncope. COMPARISON STUDY: Chest x-ray dated 02/21/2021. Chest CT dated 11/07/2020. TECHNIQUE: Following the IV administration of 120 cc of Optiray 320, CT angiogram of the chest was pe rformed from the upper abdomen to the thoracic inlet utilizing the pulmonary embolus protocol. Images are reviewed in the axial, sagittal, and coronal planes. 3-D MIPS images are created and assessed. I V contrast was administered without complication. A dose lowering technique was utilized adhering to the principles of ALARA. There is significant streak artifact from the left arm which could not be e levated above the chest. CT DOSE: 566.96 mGycm FINDINGS: Thyroid: Imaged portions of the thyroid gland are normal in size and attenuation. Thoracic aorta: There is mild atherosclerotic calcification of the thoracic aorta, which is normal in caliber and demonstrates standard 3-vessel arch anatomy. No dissection is seen. Pulmonary vasculature: The pulmonary trunk is normal in caliber. There are no filling defects identif ied in main, lobar, or segmental pulmonary branches to suggest pulmonary embolus. Heart: The heart is normal in size and without pericardial effusion. Lungs and pleural spaces: Mild emphysematous change is noted at the apices. There is no airspace cons olidation or pleural effusion. The trachea and central airways are clear. Minimal dependent atelectas is is seen at the lung bases. Mediastinum: There is no mediastinal lymphadenopathy. Gosia: Clear. Axillae: There is no axillary lymphadenopathy. Upper abdomen: Partially visualized upper abdominal viscera is within normal limits. Skeletal structures: There are healed left-sided rib fractures. Mild spondylotic changes noted throug hout the thoracic spine. No lytic or blastic bony lesions are seen. IMPRESSION: 1. There is no evidence of pulmonary embolus in the main, lobar, or segmental pulmonary arteries. 2. There is no airspace consolidation or pleural effusion. ACT 112: Negative or not required by law. Electronically signed by: Chandler Alonso M.D. 02/21/2021 11:07 AM
--- NOTE | 2021-02-21 12:37 | Electrocardiogram Report ---
Test Reason : Blood Pressure : / mmHG Vent. Rate : 098 BPM Atrial Rate : 098 BPM P-R Int : 198 ms QRS Dur : 164 ms QT Int : 408 ms P-R-T Axes : 052 110 -45 degrees QTc Int : 520 ms Normal sinus rhythm Right bundle branch block Left posterior fascicular block Bifascicular block T wave abnormality, consider inferior ischemia Abnormal ECG When compared with ECG of 07-NOV-2020 19:30, Left posterior fascicular block is now Present Criteria for Inferior infarct are no longer Present T wave inversion now evident in Inferior leads QT has lengthened Confirmed by Ronald Alfonso ([id number]) on 02/21/2021 12:37:37 PM Referred By: REFERRED SELF Confirmed By:Myles Alfonso
[2021-02-21] MEDS ORDERED: POLYETHYLENE (MIRALAX) 17 GM PACK PO PRN (12:57)
[2021-02-21] MEDS: SODIUM CHLORIDE 0.9% 1000ML 1,000 ML IV SCH ×2 (13:08→23:41)
--- NOTE | 2021-02-21 13:12 | History & Physical Report ---
Date of Service February 21, 2021 Assessment & Plan (1) Syncope: (2) Abnormal ECG: Plan: - Syncopal episode upon exertion - D-dimer elevated, CT PE negative for PE, no consolidation or pleural effusion either - No white blood cell count elevation, hemoglobin normal - UA unremarkable - Covid negative - Patient possibly dehydrated given RONALDO - Obtain orthostatics, provide gentle IVF - ECG abnormal, showing bifascicular block, T wave inversions in inferior leads and lengthened QT interval - Echo obtained during last admission, in October 2020 Normal LV chamber size with mild concentric LVH. Normal LV systolic function. EF 65%. No segmental LV wall motion abnormalities noted. Grade 1 diastolic dysfunction. Aortic valve sclerosis mild, without significant aortic valvular stenosis. Mild LA enlargement. - initial troponin negative We'll further discuss with cardiology above ECG findings and syncopal episode (3) Diabetes mellitus, type II: Plan: Hb A1C: 10.9 in November 2019 - obtain current Hb A1c - hold home oral medications - SSI - Monitor blood glucose levels (4) HTN (hypertension): Plan: - currently controlled - hold lisinopril, HCTZ, lasix for now d/t UTI - monitor BP (5) HLD (hyperlipidemia): Plan: - cont. home statin (6) Morbid obesity: Plan: - BMI ~40 - provide counseling (7) RONALDO (acute kidney injury): Plan: - current Cr 1.6 - pt also received contrast - give gentle IVF - hold diuretics - recheck BMP - try to avoid nephrotoxic agents (8) JASSON (obstructive sleep apnea): Plan: - cpap -says he has some difficulty tolerating it -Prefers BiPAP -In the ED, patient fell asleep and was desaturating to 60s% DVT ppx: lovenox Code: Full History of Present Illness Chief Complaint: syncope Primary Care Provider: Brayden Orozco DO Patient is 60 yo M w/ DM typpe II, HTN, HLD, JASSON on cpap, prior tobacco use, morbid obesity who presents after a syncopal episode. Patient reports he felt well, denies any fevers, chills, chest pain, shortness of breath, dizziness or lightheadedness prior to this incident. Early this morning, he was planning to go hunting, and he was lifting a trailer to put it on a hinge. He bent over and lifted, says he usually does not lift anything that heavy. He fell and per his daughter who was nearby lost consciousness for some seconds. His daughter is a nurse, and made sure that he was placed on oxygen. Patient recovered quickly however did not feel well afterwards. He reports that he was diagnosed with severe sleep apnea, started to use CPAP about 2 months ago however he has difficulty tolerating it. He says he is try to stay up late so he does not have to use it too long, however he says that he uses it at least for several hours at night. He also says however that he feels like it suffocating him. Reportedly he should have BiPAP however his insurance company denied it and he responded better to BiPAP. He also does not drink much fluids due to not wanting to get up at night, and interrupt CPAP. In the ED CT PE was obtained, which was negative for PE or any consolidation. Troponin was negative. Patient afebrile, with unremarkable blood work except for elevated creatinine. UA also negative. EKG however with some changes, which were discussed between ED provider and nursery school teacher. Currently patient is lying in bed, in no acute distress. He is alert oriented answering questions appropriately. Orthostatics are ordered but not obtained yet. Reportedly when he fell asleep in ED, he was desatting to 60s. CPAP/BiPAP ordered. Currently when he is awake and talking, he is saturating in high 90s. Allergies Allergy/AdvReac Type Severity Reaction Status Date / Time No Known Allergies Allergy Mild Unverified 02/21/21 09:31 Home Medications Medication Instructions Recorded Confirmed Type atorvastatin 20 mg tablet 20 mg PO HS 11/07/20 02/21/21 History glimepiride 4 mg tablet 8 mg PO QDD 11/07/20 02/21/21 History metformin 1,000 mg tablet 1,000 mg PO BID 11/07/20 02/21/21 History multivitamin 1 tab PO DAILY 11/07/20 02/21/21 History pioglitazone 30 mg tablet 30 mg PO DAILY 11/07/20 02/21/21 History lisinopril 5 mg tablet 10 mg PO DAILY #60 tab 11/10/20 02/21/21 Rx dulaglutide 1.5 mg/0.5 mL 0 mg SUBCUT UD 02/21/21 02/21/21 History subcutaneous pen injector (Trulicity) furosemide 20 mg tablet 20 mg PO DAILY 02/21/21 02/21/21 History gabapentin 100 mg capsule 200 mg PO TID 02/21/21 02/21/21 History hydrochlorothiazide 25 mg tablet 25 mg PO DAILY 02/21/21 02/21/21 History Past Med/Surg History Medical History (Updated 02/21/21 @ 14:20 by Caesar Hunt MD) Diabetes mellitus, type II HLD (hyperlipidemia) HTN (hypertension) Morbid obesity No pertinent family history JASSON (obstructive sleep apnea) Surgical History No pertinent past surgical history Family History Other Diabetes Social History Smoking Status: Former smoker Cigarettes Per Day: 1; Second Hand Exposure: No; Hx Alcohol Use: Yes Alcohol type: beer Hx Substance Use: No Preferred Language: Peruvian Communication Ability: Effective Delivery Supervisor Required: No Beliefs That Will Affect Care: None marital status: Current Living Situation: Spouse How many Children do You have: 3 Feels Safe at Home: Yes Assistive Devices: Oxygen - Continuous Review of Systems Constitutional: no fever and no chills Eyes: no problem reported Ear, Nose, Mouth, Throat: no problem reported Respiratory: Chronic shortness of breath with exertion Cardiovascular: no chest pain Gastrointestinal: no abdominal pain and no nausea Genitourinary: no dysuria Musculoskeletal: no myalgia and no body aches Integumentary: no problem reported Neurologic: + syncope; no behavioral changes, no confusion and no memory loss Psychiatric: no problem reported Endocrine: see below Hematologic / Lymphatic: see below Allergy / Immunological: see below Physical Exam Constitutional: WD/WN, vitals as above (morbidly obese M in NAD) Eyes: PERRL, conjunctivae normal, anicteric sclerae ENMT: external ear and nose normal, oropharynx normal Neck: trachea midline, no thyromegaly Respiratory: normal respiratory effort, lungs clear to auscultation Cardiovascular: RRR, no murmur, no edema Chest (Breasts): Chest: normal inspection of chest Gastrointestinal (Abdomen): Inspection/Auscultation: abdomen normal to inspection (obese) and normal bowel sounds Percussion/Palpation: abdomen soft; abdomen nontender and no guarding Musculoskeletal: no cyanosis or clubbing, extremities motor strength 5/5 Skin: no rashes, warm and dry Neurologic: PERRL, EOMI, accommodation nl, no face palsy, no dysarthria Psychiatric: A+Ox3, euthymic affect Genitourinary: no CVA tenderness Lymphatic: + lymphedema (trace LE b/l) Results & Data Results & Data ([facility]) Vital Signs (Past 12 Hours) Vital Signs Temp Pulse Pulse Resp BP BP Pulse Ox 02/21/21 12:30 101 H 18 153/111 H 98 02/21/21 10:30 103 H 20 152/90 H 97 02/21/21 08:29 97 H 22 146/97 H 94 02/21/21 07:48 36.6 C 102 H 19 125/91 94 Laboratory Results 02/21/21 02/21/21 02/21/21 Range/Units 08:54 08:50 08:50 WBC (4.8-10.8) K/uL RBC (4.7-6.1) M/uL Hgb (14.0-18.0) g/dL Hct (42-52) % MCV (80-100) fL MCH (25-34) pg MCHC (32-36) g/dL RDW Std Deviation (36.4-46.3) fL RDW Coeff of Solomon (11.5-14.5) % Plt Count (130-400) K/uL MPV (7.4-10.4) fL Immature Gran % (Auto) % Neut % (Auto) % Lymph % (Auto) % [place] % (Auto) % Eos % (Auto) % Baso % (Auto) % Neut # (Auto) (1.4-6.5) K/uL Lymph # (Auto) (1.2-3.4) K/uL [place] # (Auto) (0.11-0.59) K/uL Eos # (Auto) (0-0.5) K/uL Baso # (Auto) (0-0.2) K/uL Immature Gran # (Auto) (0.00-0.02) K/uL PT (9.0-12.0) Seconds INR (0.9-1.1) APTT (21.0-31.0) Seconds PTT Ratio D-Dimer 2170 H* (0-500) ug/L FEU Sodium (136-145) mmol/L Potassium (3.5-5.1) mmol/L Chloride (98-107) mmol/L Carbon Dioxide (21-32) mmol/L Anion Gap (3-11) BUN (7-18) mg/dl Creatinine (0.6-1.4) mg/dl Est Cr Clr Drug Dosing ml/min Est GFR ( Amer) ml/min Est GFR (Non-Af Amer) ml/min BUN/Creatinine Ratio (10-20) Glucose (70-99) mg/dl Calcium (8.5-10.1) mg/dl Magnesium (1.8-2.4) mg/dl Total Bilirubin (0.2-1) mg/dl AST (15-37) U/L ALT (12-78) U/L Alkaline Phosphatase (45-117) U/L Total Creatine Kinase (39-308) U/L CK-MB (CK-2) (0.5-3.6) ng/ml CK/CKMB % Calc (0-3.0) Troponin I (0-0.045) ng/ml Total Protein (6.4-8.2) gm/dl Albumin (3.4-5.0) gm/dl Globulin (2.5-4.0) gm/dl Albumin/Globulin Ratio (0.9-2) Lipase (73-393) U/L TSH (0.300-4.500) uIu/ml Urine Color Yellow Urine Appearance Clear (Clear) Urine pH 5.0 (4.5-7.5) Ur Specific Ovid 1.012 (1.000-1.030) Urine Protein Negative (Negative) Urine Glucose (UA) Negative (Negative) Urine Ketones Negative (Negative) Urine Blood 1+ H (Negative) Urine Nitrite Negative (Negative) Urine Bilirubin Negative (Negative) Urine Urobilinogen Negative (Negative) Ur Leukocyte Esterase Negative (Negative) Urine WBC (Auto) 1-5 (0-5) /hpf Urine RBC (Auto) 0-4 (0-4) /hpf U Hyaline Cast (Auto) 1-5 (0-5) /lpf U Epithel Cells (Auto) 5-10 H (0-5) /lpf Urine Bacteria (Auto) Negative (Negative) SARS-CoV-2, RNA, NAAT NEGATIVE (NEGATIVE) 02/21/21 02/21/21 02/21/21 Range/Units 08:35 08:35 08:35 WBC 7.39 (4.8-10.8) K/uL RBC 4.54 L (4.7-6.1) M/uL Hgb 13.6 L (14.0-18.0) g/dL Hct 41.2 L (42-52) % MCV 90.7 (80-100) fL MCH 30.0 (25-34) pg MCHC 33.0 (32-36) g/dL RDW Std Deviation 47.0 H (36.4-46.3) fL RDW Coeff of Solomon 14.1 (11.5-14.5) % Plt Count 193 (130-400) K/uL MPV 9.6 (7.4-10.4) fL Immature Gran % (Auto) 0.3 % Neut % (Auto) 75.7 % Lymph % (Auto) 15.8 % [place] % (Auto) 5.5 % Eos % (Auto) 2.4 % Baso % (Auto) 0.3 % Neut # (Auto) 5.59 (1.4-6.5) K/uL Lymph # (Auto) 1.17 L (1.2-3.4) K/uL [place] # (Auto) 0.41 (0.11-0.59) K/uL Eos # (Auto) 0.18 (0-0.5) K/uL Baso # (Auto) 0.02 (0-0.2) K/uL Immature Gran # (Auto) 0.02 (0.00-0.02) K/uL PT 10.3 (9.0-12.0) Seconds INR 1.0 (0.9-1.1) APTT 23.4 (21.0-31.0) Seconds PTT Ratio 0.9 D-Dimer (0-500) ug/L FEU Sodium 139 (136-145) mmol/L Potassium 4.7 (3.5-5.1) mmol/L Chloride 105 (98-107) mmol/L Carbon Dioxide 24 (21-32) mmol/L Anion Gap 10.0 (3-11) BUN 40 H (7-18) mg/dl Creatinine 1.62 H (0.6-1.4) mg/dl Est Cr Clr Drug Dosing 70.2 ml/min Est GFR ( Amer) 52.7 ml/min Est GFR (Non-Af Amer) 45.5 ml/min BUN/Creatinine Ratio 24.8 H (10-20) Glucose 228 H (70-99) mg/dl Calcium 9.0 (8.5-10.1) mg/dl Magnesium 2.0 (1.8-2.4) mg/dl Total Bilirubin 0.4 (0.2-1) mg/dl AST 15 (15-37) U/L ALT 27 (12-78) U/L Alkaline Phosphatase 97 (45-117) U/L Total Creatine Kinase 174 (39-308) U/L CK-MB (CK-2) 4.8 H (0.5-3.6) ng/ml CK/CKMB % Calc 2.8 (0-3.0) Troponin I < 0.015 (0-0.045) ng/ml Total Protein 7.7 (6.4-8.2) gm/dl Albumin 3.3 L (3.4-5.0) gm/dl Globulin 4.4 H (2.5-4.0) gm/dl Albumin/Globulin Ratio 0.8 L (0.9-2) Lipase 131 (73-393) U/L TSH 2.260 (0.300-4.500) uIu/ml Urine Color Urine Appearance (Clear) Urine pH (4.5-7.5) Ur Specific Ovid (1.000-1.030) Urine Protein (Negative) Urine Glucose (UA) (Negative) Urine Ketones (Negative) Urine Blood (Negative) Urine Nitrite (Negative) Urine Bilirubin (Negative) Urine Urobilinogen (Negative) Ur Leukocyte Esterase (Negative) Urine WBC (Auto) (0-5) /hpf Urine RBC (Auto) (0-4) /hpf U Hyaline Cast (Auto) (0-5) /lpf U Epithel Cells (Auto) (0-5) /lpf Urine Bacteria (Auto) (Negative) SARS-CoV-2, RNA, NAAT (NEGATIVE) Diagnostic Findings CT head IMPRESSION: There is no hemorrhage, mass effect, or evidence of acute territorial ischemia by CT criteria. Chest CTA IMPRESSION: 1. There is no evidence of pulmonary embolus in the main, lobar, or segmental pulmonary arteries. 2. There is no airspace consolidation or pleural effusion. CXR IMPRESSION: No active disease in the chest. Code Status & VTE Plan VTE Prophylaxis Plan VTE Prophylaxis will be ordered: Yes
[2021-02-21] MEDS ORDERED: GLUCOSE 40% GEL 15 GM TUBE PO PRN (13:24)
[2021-02-21] MEDS ORDERED: GLUCAGON FOR INJ 1 MG VIAL SQ PRN (13:24)
[2021-02-21] MEDS ORDERED: GLUCOSE 10 TABS/TUBE PO PRN (13:24)
[2021-02-21] MEDS ORDERED: DEXTROSE 50% 50 ML SYRINGE IV PRN (13:24)
[2021-02-21] MEDS ORDERED: CARBOHYDRATES FOR HYPOGLYCEMIA PO PRN (13:24)
[2021-02-21] MEDS: ACETAMINOPHEN 325 MG TAB PO PRN ×2 (13:28→22:42)
[2021-02-21] MEDS ORDERED: ENOXAPARIN INJ 40 MG/0.4 ML SYR SQ SCH (14:00)
[2021-02-21 14:08] LABS: Estimated Average Glucose 174 mg/dl; Hemoglobin A1C 7.7 % (4.5-5.6)
[2021-02-21] MEDS: INSULIN ASPART 100 UNITS/ML 3 ML PEN SC SCH ×2 (18:37→22:32)
[2021-02-21] MEDS ORDERED: ATORVASTATIN 20 MG TAB PO SCH (21:00)
[2021-02-22 07:45] LABS: Hematocrit (blood only) 40.7 % (42-52); Hemoglobin 13.4 g/dL (14.0-18.0); Mean Corpuscular Hemoglobin 30.2 pg (25-34); Mean Corpuscular Hgb Conc 32.9 g/dL (32-36); Mean Corpuscular Volume 91.7 fL (80-100); Mean Platelet Volume 9.7 fL (7.4-10.4); Platelet Count 171 K/uL (130-400); RDW Coefficient of Variation 14.2 % (11.5-14.5); RDW Standard Deviation 47.8 fL (36.4-46.3); Red Blood Count 4.44 M/uL (4.7-6.1)
[2021-02-22] MEDS: ACETAMINOPHEN 325 MG TAB PO PRN (07:49)
[2021-02-22] MEDS: INSULIN ASPART 100 UNITS/ML 3 ML PEN SC SCH ×2 (07:56→13:00)
[2021-02-22 08:03] LABS: BUN Creatinine Ratio 23.8 (10-20); Calcium 8.8 mg/dl (8.5-10.1); Creatinine Clr Calc Pharmacy 76.3 ml/min; Est GFR (African American) 58.3 ml/min; Est GFR (Non-African American) 50.3 ml/min; Magnesium 2.1 mg/dl (1.8-2.4); Potassium 4.4 mmol/L (3.5-5.1)
[2021-02-22 08:04] LABS: Phosphorus 4.4 mg/dl (2.5-4.9)
--- NOTE | 2021-02-22 10:43 | Cardiology Consultation ---
Date of Consultation February 22, 2021 Assessment & Plan (1) Syncope: (2) Abnormal EKG: (3) JASSON (obstructive sleep apnea): (4) Morbid obesity: (5) Diabetes mellitus, type II: (6) RONALDO (acute kidney injury): The patient is anxious and wants to return home. States he feels fine. He does have conduction system disease on the EKG and I feel when he was lifting his trailer he may have caused a vagal event that resulted in syncope. He had an echocardiogram that was fairly unremarkable in October but I will repeat 1 to be certain that he does not have new wall motion abnormalities that would suggest ischemic heart disease. He does have a long history of diabetes and evidence of chronic kidney disease. If the echocardiogram is unchanged and I believe he may be discharged to outpatient follow-up with a O monitor. History of Present Illness Attending Physician: Caesar Hunt MD History of Present Illness This is a 60-year-old male patient with no prior history of heart disease however, he has been a diabetic for approximately 20 years. He also has a history of hypertension, morbid obesity and sleep apnea. He was in his usual state of health yesterday preparing to go deer hunting. He lifted a trailer to hitch it to his vehicle. He describes it as being significantly heavy. While doing this activity he suddenly passed out. He was brought to the emergency department by his family. His baseline EKG shows a sinus rhythm with a right bundle branch block and a left anterior hemiblock. These findings on his EKG are not new. After admission his cardiac markers have been negative. CT of the chest is negative for pulmonary emboli. He has no ongoing complaints and is anxious to return home. Recently, he has had no activity related chest pain or shortness of breath. No previous syncopal episodes, dizziness or lightheadedness. It should be noted that the patient most likely has CKD at least stage II. On admission his creatinine was slightly more elevated above baseline. He states he had not had anything to eat or drink all day yesterday which may have contributed. He has had no fevers chills or other illnesses. Allergies Allergy/AdvReac Type Severity Reaction Status Date / Time No Known Allergies Allergy Mild Unverified 02/21/21 09:31 Home Medications Medication Instructions Recorded Confirmed Type atorvastatin 20 mg tablet 20 mg PO HS 11/07/20 02/21/21 History glimepiride 4 mg tablet 8 mg PO QDD 11/07/20 02/21/21 History metformin 1,000 mg tablet 1,000 mg PO BID 11/07/20 02/21/21 History multivitamin 1 tab PO DAILY 11/07/20 02/21/21 History pioglitazone 30 mg tablet 30 mg PO DAILY 11/07/20 02/21/21 History lisinopril 5 mg tablet 10 mg PO DAILY #60 tab 11/10/20 02/21/21 Rx dulaglutide 1.5 mg/0.5 mL 0 mg SUBCUT UD 02/21/21 02/21/21 History subcutaneous pen injector (Trulicity) furosemide 20 mg tablet 20 mg PO DAILY 02/21/21 02/21/21 History gabapentin 100 mg capsule 200 mg PO TID 02/21/21 02/21/21 History hydrochlorothiazide 25 mg tablet 25 mg PO DAILY 02/21/21 02/21/21 History Patient History Medical History Diabetes mellitus, type II HLD (hyperlipidemia) HTN (hypertension) Morbid obesity No pertinent family history JASSON (obstructive sleep apnea) Surgical History No pertinent past surgical history Family History Other Diabetes Social History Smoking Status: Former smoker Cigarettes Per Day: 1; Second Hand Exposure: No; Hx Alcohol Use: Yes Alcohol type: beer Hx Substance Use: No Preferred Language: Sami Communication Ability: Effective Bilingual Account Manager Required: No Beliefs That Will Affect Care: None marital status: Current Living Situation: Spouse How many Children do You have: 3 Feels Safe at Home: Yes Assistive Devices: Oxygen - Continuous Review of Systems Review of Systems: Review of Systems: See HPI for pertinent positives. All other 10 point review of systems are negative. Physical Exam Physical Exam: General: no acute distress and stated age Head: normocephalic, no masses, lesions, tenderness or abnormalities Eyes: conjunctiva are pink and non-injected, sclera clear Neck: supple, no adenopathy, no bruits, normal jugular venous pulse, no hepatojugular reflux Chest: normal shape and normal respiratory effort Lungs: clear to auscultation and percussion Cardiac Exam: - regular rate & rhythm, no murmurs gallops or rubs - normal S1, normal S2 Pulses: 2(+) throughout Abdomen: abdomen soft, non-tender, no abnormal masses and no hepatosplenomegaly Musculoskeletal: no gait disturbance, no joint inflammation, no deforming arthritis Extremities: no edema and no cyanosis Neuro: grossly normal exam Results & Data ([facility]) Vital Signs (Past 12 Hours) Vital Signs Pulse Resp BP Pulse Ox 02/22/21 04:00 94 H 22 132/93 96 02/22/21 02:23 99 H 16 151/80 H 98 02/21/21 23:42 94 H 16 140/89 99 Laboratory Results Laboratory Results - last 24 hr 02/21/21 02/21/21 02/21/21 08:35 14:24 16:38 WBC RBC Hgb Hct MCV MCH MCHC RDW Std Deviation RDW Coeff of Solomon Plt Count MPV Sodium Potassium Chloride Carbon Dioxide Anion Gap BUN Creatinine Est Cr Clr Drug Dosing Est GFR ( Amer) Est GFR (Non-Af Amer) BUN/Creatinine Ratio Glucose POC Glucose 120 H 121 H Estimat Average Glucose 174 Hemoglobin A1c 7.7 H Calcium Phosphorus Magnesium 02/21/21 02/22/21 02/22/21 22:26 07:11 07:11 WBC 5.60 RBC 4.44 L Hgb 13.4 L Hct 40.7 L MCV 91.7 MCH 30.2 MCHC 32.9 RDW Std Deviation 47.8 H RDW Coeff of Solomon 14.2 Plt Count 171 MPV 9.7 Sodium 141 Potassium 4.4 Chloride 109 H Carbon Dioxide 26 Anion Gap 7.0 BUN 36 H Creatinine 1.49 H Est Cr Clr Drug Dosing 76.3 Est GFR ( Amer) 58.3 Est GFR (Non-Af Amer) 50.3 BUN/Creatinine Ratio 23.8 H Glucose 145 H POC Glucose 113 H Estimat Average Glucose Hemoglobin A1c Calcium 8.8 Phosphorus 4.4 Magnesium 2.1 02/22/21 07:38 WBC RBC Hgb Hct MCV MCH MCHC RDW Std Deviation RDW Coeff of Solomon Plt Count MPV Sodium Potassium Chloride Carbon Dioxide Anion Gap BUN Creatinine Est Cr Clr Drug Dosing Est GFR ( Amer) Est GFR (Non-Af Amer) BUN/Creatinine Ratio Glucose POC Glucose 148 H Estimat Average Glucose Hemoglobin A1c Calcium Phosphorus Magnesium Medications Administered Current Inpatient Medications Acetaminophen (Acetaminophen 325 Mg Tab) 650 mg PO Q4H PRN PRN Reason: Pain or Fever Stop: 03/23/21 12:56 Last Admin: 02/22/21 07:49 Dose: 650 mg Documented by: Atorvastatin Calcium (Atorvastatin 20 Mg Tab) 20 mg PO HS CATHERINE Stop: 03/23/21 20:59 Last Admin: 02/21/21 22:41 Dose: 20 mg Documented by: Dextrose (Dextrose 50% 50 Ml Syringe) 25 - 50 ml IV UD PRN; Protocol PRN Reason: Hypoglycemia Protocol Stop: 03/23/21 13:23 Enoxaparin Sodium (Enoxaparin Inj 40 Mg/0.4 Ml Syr) 40 mg SQ Q24H CATHERINE Stop: 03/23/21 13:59 Last Admin: 02/21/21 14:28 Dose: 40 mg Documented by: Glucagon (Glucagon For Inj 1 Mg Vial) 1 mg SQ UD PRN; Protocol PRN Reason: Hypoglycemia Protocol Stop: 03/23/21 13:23 Glucose (Glucose 10 Tabs/Tube) 4 - 8 tabs PO UD PRN; Protocol PRN Reason: Hypoglycemia Protocol Stop: 03/23/21 13:23 Glucose (Glucose 40% Gel 15 Gm Tube) 15 - 30 gm PO UD PRN; Protocol PRN Reason: Hypoglycemia Protocol Stop: 03/23/21 13:23 Sodium Chloride (Nss 1000ml) 1,000 mls @ 125 mls/hr IV .Q8H CATHERINE Stop: 03/23/21 12:59 Last Admin: 02/21/21 23:41 Dose: 80 mls/hr Documented by: Insulin Aspart (Insulin Aspart 100 Units/Ml 3 Ml Pen) 0 units SC ACHS CATHERINE Stop: 03/23/21 16:29 Last Admin: 02/22/21 07:56 Dose: 4 units Documented by: Miscellaneous (Carbohydrates For Hypoglycemia ) 15 - 30 gm PO UD PRN PRN Reason: Hypoglycemia Protocol Stop: 03/23/21 13:23 Polyethylene Glycol (Polyethylene (Miralax) 17 Gm Pack) 17 gm PO DAILY PRN PRN Reason: Constipation Stop: 03/23/21 12:56 (1) Syncope Syncope type: unspecified Qualified Code(s): R55 - Syncope and collapse
[2021-02-22] MEDS: SODIUM CHLORIDE 0.9% 1000ML 1,000 ML IV SCH (12:00)
--- NOTE | 2021-02-22 12:48 | Hospitalist Progress Note ---
Date of Service February 22, 2021 Assessment & Plan (1) Syncope: (2) Abnormal ECG: Plan: - Syncopal episode upon exertion - D-dimer elevated, CT PE negative for PE, no consolidation or pleural effusion either - No white blood cell count elevation, hemoglobin normal - UA unremarkable - Covid negative - Patient found orthostatic in the ED, gentle IV fluids provided - Also may have had vasovagal episode - Patient possibly dehydrated given RONALDO - ECG abnormal, showing bifascicular block, T wave inversions in inferior leads and lengthened QT interval - Echo obtained during last admission, in October 2020 Normal LV chamber size with mild concentric LVH. Normal LV systolic function. EF 65%. No segmental LV wall motion abnormalities noted. Grade 1 diastolic dysfunction. Aortic valve sclerosis mild, without significant aortic valvular stenosis. Mild LA enlargement. - initial troponin negative - discussed further with cardiology above ECG findings and syncopal episode -Recommended to repeat echo, which was normal, also recommend office equipment technician as outpatient -Patient will need to follow-up with cardiology as outpatient (3) Diabetes mellitus, type II: Plan: Hb A1C: 10.9 in November 2019 - obtain current Hb A1c - hold home oral medications - SSI - Monitor blood glucose levels (4) HTN (hypertension): Plan: - currently controlled - hold lisinopril, HCTZ, lasix for now d/t RONALDO - monitor BP - on DC continue to hold Lasix and lisinopril, and monitor blood pressure at home -Close follow-up with PCP (5) HLD (hyperlipidemia): Plan: - cont. home statin (6) Morbid obesity: Plan: - BMI ~40 - provided counseling -Recommend nutrition consult as outpatient, patient in agreement (7) RONALDO (acute kidney injury): Plan: - Cr 1.6 on admission - pt also received contrast - given gentle IVF, Cr somewhat improved - held diuretics - try to avoid nephrotoxic agents - need to re-check renal function as outpt (8) JASSON (obstructive sleep apnea): Plan: - cpap -says he has some difficulty tolerating it -Prefers BiPAP -In the ED, patient fell asleep and was desaturating to 60s% - close follow up as outpt recommended DVT ppx: lovenox Code: Full Admission and Anticipated Discharge Date Admission Date: February 21, 2021 Subjective Patient seen in follow-up of syncope No acute events overnight. Patient is currently sitting up in chair in no acute distress. Denies any chest pain, shortness of breath, dizziness lightheadedness. He is breathing comfortably on room air. Patient was found orthostatic in ER, received IV fluids. Per RT, patient did not tolerate BiPAP very much. Seen by cardiology, echo obtained. Review of Systems Review of Systems: All systems reviewed & are unremarkable except as noted in Subjective Physical Exam Physical Exam: Constitutional:L morbidly obese M i n NAD Eyes: PERRL, EOMI, conju nctivae normal, an icteric sclerae ENMT: external ear and n ose normal, oropha rynx normal Neck: thick neck Respiratory: normal respiratory effort, lungs joel ar to auscultation b/l Cardiovascular:L RRR, no murmur, no edema Chest (Breasts): Chest: normal insp ection of chest Gastrointestinal ( Abdomen): Inspection/Auscult ation: abdomen nor mal to inspection (obese), normal brittany wel sounds Percus moises/Palpation: ab domen soft; abdome n nontender and no guarding Musculoskeletal: extremities motor strength 5/5, move s extremities Skin: no rashes, warm an d dry Neurologic: PERRL, EOMI, no fa ce palsy, no dysar thria, moves extre mities Psychiatric: A+Ox3, euthymic af fect Genitourinary: no CVA tenderness Lymphatic: + trace LE lymphe shaista b/l Results & Data Results & Data ([facility]) Vital Signs (Past 12 Hours) Vital Signs Pulse Resp BP Pulse Ox 02/22/21 04:00 94 H 22 132/93 96 02/22/21 02:23 99 H 16 151/80 H 98 Laboratory Results 02/22/21 02/22/21 02/22/21 Range/Units 07:38 07:11 07:11 WBC 5.60 (4.8-10.8) K/uL RBC 4.44 L (4.7-6.1) M/uL Hgb 13.4 L (14.0-18.0) g/dL Hct 40.7 L (42-52) % MCV 91.7 (80-100) fL MCH 30.2 (25-34) pg MCHC 32.9 (32-36) g/dL RDW Std Deviation 47.8 H (36.4-46.3) fL RDW Coeff of Solomon 14.2 (11.5-14.5) % Plt Count 171 (130-400) K/uL MPV 9.7 (7.4-10.4) fL Sodium 141 (136-145) mmol/L Potassium 4.4 (3.5-5.1) mmol/L Chloride 109 H (98-107) mmol/L Carbon Dioxide 26 (21-32) mmol/L Anion Gap 7.0 (3-11) BUN 36 H (7-18) mg/dl Creatinine 1.49 H (0.6-1.4) mg/dl Est Cr Clr Drug Dosing 76.3 ml/min Est GFR ( Amer) 58.3 ml/min Est GFR (Non-Af Amer) 50.3 ml/min BUN/Creatinine Ratio 23.8 H (10-20) Glucose 145 H (70-99) mg/dl POC Glucose 148 H (70-99) mg/dl Estimat Average Glucose mg/dl Hemoglobin A1c (4.5-5.6) % Calcium 8.8 (8.5-10.1) mg/dl Phosphorus 4.4 (2.5-4.9) mg/dl Magnesium 2.1 (1.8-2.4) mg/dl 02/21/21 02/21/21 02/21/21 Range/Units 22:26 16:38 14:24 WBC (4.8-10.8) K/uL RBC (4.7-6.1) M/uL Hgb (14.0-18.0) g/dL Hct (42-52) % MCV (80-100) fL MCH (25-34) pg MCHC (32-36) g/dL RDW Std Deviation (36.4-46.3) fL RDW Coeff of Solomon (11.5-14.5) % Plt Count (130-400) K/uL MPV (7.4-10.4) fL Sodium (136-145) mmol/L Potassium (3.5-5.1) mmol/L Chloride (98-107) mmol/L Carbon Dioxide (21-32) mmol/L Anion Gap (3-11) BUN (7-18) mg/dl Creatinine (0.6-1.4) mg/dl Est Cr Clr Drug Dosing ml/min Est GFR ( Amer) ml/min Est GFR (Non-Af Amer) ml/min BUN/Creatinine Ratio (10-20) Glucose (70-99) mg/dl POC Glucose 113 H 121 H 120 H (70-99) mg/dl Estimat Average Glucose mg/dl Hemoglobin A1c (4.5-5.6) % Calcium (8.5-10.1) mg/dl Phosphorus (2.5-4.9) mg/dl Magnesium (1.8-2.4) mg/dl 02/21/21 Range/Units 08:35 WBC (4.8-10.8) K/uL RBC (4.7-6.1) M/uL Hgb (14.0-18.0) g/dL Hct (42-52) % MCV (80-100) fL MCH (25-34) pg MCHC (32-36) g/dL RDW Std Deviation (36.4-46.3) fL RDW Coeff of Solomon (11.5-14.5) % Plt Count (130-400) K/uL MPV (7.4-10.4) fL Sodium (136-145) mmol/L Potassium (3.5-5.1) mmol/L Chloride (98-107) mmol/L Carbon Dioxide (21-32) mmol/L Anion Gap (3-11) BUN (7-18) mg/dl Creatinine (0.6-1.4) mg/dl Est Cr Clr Drug Dosing ml/min Est GFR ( Amer) ml/min Est GFR (Non-Af Amer) ml/min BUN/Creatinine Ratio (10-20) Glucose (70-99) mg/dl POC Glucose (70-99) mg/dl Estimat Average Glucose 174 mg/dl Hemoglobin A1c 7.7 H (4.5-5.6) % Calcium (8.5-10.1) mg/dl Phosphorus (2.5-4.9) mg/dl Magnesium (1.8-2.4) mg/dl Medications Administered Current Inpatient Medications Acetaminophen (Acetaminophen 325 Mg Tab) 650 mg PO Q4H PRN PRN Reason: Pain or Fever Stop: 03/23/21 12:56 Last Admin: 02/22/21 07:49 Dose: 650 mg Documented by: Atorvastatin Calcium (Atorvastatin 20 Mg Tab) 20 mg PO HS CATHERINE Stop: 03/23/21 20:59 Last Admin: 02/21/21 22:41 Dose: 20 mg Documented by: Dextrose (Dextrose 50% 50 Ml Syringe) 25 - 50 ml IV UD PRN; Protocol PRN Reason: Hypoglycemia Protocol Stop: 03/23/21 13:23 Enoxaparin Sodium (Enoxaparin Inj 40 Mg/0.4 Ml Syr) 40 mg SQ Q24H CATHERINE Stop: 03/23/21 13:59 Last Admin: 02/21/21 14:28 Dose: 40 mg Documented by: Glucagon (Glucagon For Inj 1 Mg Vial) 1 mg SQ UD PRN; Protocol PRN Reason: Hypoglycemia Protocol Stop: 03/23/21 13:23 Glucose (Glucose 10 Tabs/Tube) 4 - 8 tabs PO UD PRN; Protocol PRN Reason: Hypoglycemia Protocol Stop: 03/23/21 13:23 Glucose (Glucose 40% Gel 15 Gm Tube) 15 - 30 gm PO UD PRN; Protocol PRN Reason: Hypoglycemia Protocol Stop: 03/23/21 13:23 Sodium Chloride (Nss 1000ml) 1,000 mls @ 125 mls/hr IV .Q8H CATHERINE Stop: 03/23/21 12:59 Last Admin: 02/21/21 23:41 Dose: 80 mls/hr Documented by: Insulin Aspart (Insulin Aspart 100 Units/Ml 3 Ml Pen) 0 units SC ACHS CATHERINE Stop: 03/23/21 16:29 Last Admin: 02/22/21 07:56 Dose: 4 units Documented by: Miscellaneous (Carbohydrates For Hypoglycemia ) 15 - 30 gm PO UD PRN PRN Reason: Hypoglycemia Protocol Stop: 03/23/21 13:23 Polyethylene Glycol (Polyethylene (Miralax) 17 Gm Pack) 17 gm PO DAILY PRN PRN Reason: Constipation Stop: 03/23/21 12:56
--- NOTE | 2021-02-22 14:37 | Discharge Summary ---
Date of Service February 22, 2021 Admission HPI Per Admitting Provider Patient is 60 yo M w/ DM typpe II, HTN, HLD, JASSON on cpap, prior tobacco use, morbid obesity who presents after a syncopal episode. Patient reports he felt well, denies any fevers, chills, chest pain, shortness of breath, dizziness or lightheadedness prior to this incident. Early this morning, he was planning to go hunting, and he was lifting a trailer to put it on a hinge. He bent over and lifted, says he usually does not lift anything that heavy. He fell and per his daughter who was nearby lost consciousness for some seconds. His daughter is a nurse, and made sure that he was placed on oxygen. Patient recovered quickly however did not feel well afterwards. He reports that he was diagnosed with severe sleep apnea, started to use CPAP about 2 months ago however he has difficulty tolerating it. He says he is try to stay up late so he does not have to use it too long, however he says that he uses it at least for several hours at night. He also says however that he feels like it suffocating him. Reportedly he should have BiPAP however his insurance company denied it and he responded better to BiPAP. He also does not drink much fluids due to not wanting to get up at night, and interrupt CPAP. In the ED CT PE was obtained, which was negative for PE or any consolidation. Troponin was negative. Patient afebrile, with unremarkable blood work except for elevated creatinine. UA also negative. EKG however with some changes, which were discussed between ED provider and ship surveyor. Currently patient is lying in bed, in no acute distress. He is alert oriented answering questions appropriately. Orthostatics are ordered but not obtained yet. Reportedly when he fell asleep in ED, he was desatting to 60s. CPAP/BiPAP ordered. Currently when he is awake and talking, he is saturating in high 90s. Admission Exam Per Admitting Provider Constitutional: WD/WN, vitals as above (morbidly obese M in NAD) Eyes: PERRL, conjunctivae normal, anicteric sclerae ENMT: external ear and nose normal, oropharynx normal Neck: trachea midline, no thyromegaly Respiratory: normal respiratory effort, lungs clear to auscultation Cardiovascular: RRR, no murmur, no edema Chest (Breasts): Chest: normal inspection of chest Gastrointestinal (Abdomen): Inspection/Auscultation: abdomen normal to inspection (obese) and normal bowel sounds Percussion/Palpation: abdomen soft; abdomen nontender and no guarding Musculoskeletal: no cyanosis or clubbing, extremities motor strength 5/5 Skin: no rashes, warm and dry Neurologic: PERRL, EOMI, accommodation nl, no face palsy, no dysarthria Psychiatric: A+Ox3, euthymic affect Genitourinary: no CVA tenderness Lymphatic: + lymphedema (trace LE b/l) Principal Diagnosis Syncope RONALDO JASSON on CPAP Discharge Exam Constitutional: morbidly obese M in NAD Eyes: PERRL, EOMI, conjunctivae normal, anicteric sclerae ENMT: external ear and nose normal, oropharynx normal Neck: thick neck Respiratory: normal respiratory effort, lungs clear to auscultation b/l Cardiovascular: RRR, no murmur, no edema Chest (Breasts): Chest: normal inspection of chest Gastrointestinal (Abdomen): Inspection/Auscultation: abdomen normal to inspection (obese), normal bowel sounds Percussion/Palpation: abdomen soft; abdomen nontender and no guarding Musculoskeletal:L extremities motor strength 5/5, moves extremities Skin: no rashes, warm and dry Neurologic: PERRL, EOMI, no face palsy, no dysarthria, moves extremities Psychiatric: A+Ox3, euthymic affect Genitourinary: no CVA tenderness Lymphatic: + trace LE lymphedema b/l Discharge Data Allergies Allergy/AdvReac Type Severity Reaction Status Date / Time No Known Allergies Allergy Mild Unverified 02/21/21 09:31 Consultations 02/21/21 12:09 ED Decision to Admit Stat 02/21/21 13:02 Consult Cardiology Routine Ordered Studies 02/21/21 09:49 CT angio chest PE protocol Stat IMPRESSION: 1. There is no evidence of pulmonary embolus in the main, lobar, or segmental pulmonary arteries. 2. There is no airspace consolidation or pleural effusion. CT head/brain wo con Stat IMPRESSION: There is no hemorrhage, mass effect, or evidence of acute territorial ischemia by CT criteria. Hospital Course (1) Syncope: (2) Abnormal ECG: - Syncopal episode upon exertion - D-dimer elevated, CT PE negative for PE, no consolidation or pleural effusion either - No white blood cell count elevation, hemoglobin normal - UA unremarkable - Covid negative - Patient found orthostatic in the ED, gentle IV fluids provided - Also may have had vasovagal episode - Patient possibly dehydrated given RONALDO - ECG abnormal, showing bifascicular block, T wave inversions in inferior leads and lengthened QT interval - Echo obtained during last admission, in October 2020 Normal LV chamber size with mild concentric LVH. Normal LV systolic function. EF 65%. No segmental LV wall motion abnormalities noted. Grade 1 diastolic dysfunction. Aortic valve sclerosis mild, without significant aortic valvular stenosis. Mild LA enlargement. - initial troponin negative - discussed further with cardiology above ECG findings and syncopal episode -Recommended to repeat echo, which was normal, also recommend panel monitor as outpatient -Patient will need to follow-up with cardiology as outpatient (3) Diabetes mellitus, type II: Hb A1C: 10.9 in November 2019 - obtain current Hb A1c - hold home oral medications - SSI - Monitor blood glucose levels (4) HTN (hypertension): - currently controlled - hold lisinopril, HCTZ, lasix for now d/t RONALDO - monitor BP - on DC continue to hold Lasix and lisinopril, and monitor blood pressure at home -Close follow-up with PCP (5) HLD (hyperlipidemia): - cont. home statin (6) Morbid obesity: - BMI ~40 - provided counseling -Recommend nutrition consult as outpatient, patient in agreement (7) RONALDO (acute kidney injury): - Cr 1.6 on admission - pt also received contrast - given gentle IVF, Cr somewhat improved - held diuretics - try to avoid nephrotoxic agents - need to re-check renal function as outpt (8) JASSON (obstructive sleep apnea): - cpap -says he has some difficulty tolerating it -Prefers BiPAP -In the ED, patient fell asleep and was desaturating to 60s% - close follow up as outpt recommended Total Time Total Time Spent Total Time Spent (In Minutes): 40 Discharge Plan Discharge Items Patient Disposition: Home - Self-Care Reason For Visit: SYNCOPE, ABNORMAL ECG Discharge Diagnosis: Syncope RONALDO JASSON on CPAP Activity: Per Instructions section Non-emergency contact: Primary Care Provider Call non-emergency contact if: you have any medication questions and your symptoms worsen Follow-up/Referrals: Orozco,Brayden S., DO [Primary Care Provider] - Diet: Carb Consistent or DM2 and Heart Healthy Addtl Attending Provider Instructions: Follow-up with your primary care doctor within 1 week. You also need to follow-up with cardiology, you will be contacted about the appointment. For now, do not take your Lasix/furosemide or lisinopril. Check your blood pressure at home if you are able to, and record these numbers. Discuss your numbers with your primary care doctor. Your blood work should be rechecked, to evaluate your kidney function. It is strongly recommended that you use CPAP/BiPAP at night, it is also recommended to follow-up with mixing technician to help you lose weight as weight loss can significantly help with your sleep apnea. Pending Studies at Discharge: No Stand-Alone Forms: My [facility] [employer]anza, Smoking Cessation Medications and DC Order Prescriptions: Continued atorvastatin 20 mg tablet 20 mg PO HS RF: 0 metformin 1,000 mg tablet 1,000 mg PO BID RF: 0 pioglitazone 30 mg tablet 30 mg PO DAILY RF: 0 multivitamin Tablet 1 tab PO DAILY RF: 0 glimepiride 4 mg tablet 8 mg PO QDD RF: 0 hydrochlorothiazide 25 mg tablet 25 mg PO DAILY RF: 0 gabapentin 100 mg capsule 200 mg PO TID RF: 0 Trulicity 1.5 mg/0.5 mL pen injector 0 mg SUBCUT UD RF: 0 Discontinued lisinopril 5 mg tablet 10 mg PO DAILY Qty: 60 RF: 0 furosemide 20 mg tablet 20 mg PO DAILY RF: 0 Discharge Orders: Discharge Order (Routine); Ordered 02/22/21 Ordered By: Caesar Watst/Other Patient Handouts: High Blood Sugar (Hyperglycemia), Hypoglycemia (Low Blood Sugar), Managing Type 2 Diabetes Admission Data Admit Date/Time: 02/21/21 15:05 Attending Provider: Caesar Hunt Admit Provider: Caesar Hunt Primary Care Provider: Brayden Orozco Other Providers: Saadia Irby I. ; Ermias Aguayo
== END 2021-02-22 16:02 | disposition home or self-care (01) ==
LOC: ED 08:11 → EDINP 15:05 → INTOOBSV 15:05 → EDINP 15:56

== ENCOUNTER 2021-02-27 13:00 | Observation (INO) ==
[2021-02-27 13:47] LABS: Basophils # (auto) 0.02 K/uL (0-0.2); Basophils % (auto) 0.2 %; Eosinophils # (auto) 0.04 K/uL (0-0.5); Eosinophils % (auto) 0.4 %; Hematocrit (blood only) 39.9 % (42-52); Hemoglobin 13.1 g/dL (14.0-18.0); Immature Granulocytes # (auto) 0.02 K/uL (0.00-0.02); Immature Granulocytes % (auto) 0.2 %; Lymphocytes # (auto) 1.13 K/uL (1.2-3.4); Lymphocytes % (auto) 12.5 %; Mean Corpuscular Hemoglobin 29.8 pg (25-34); Mean Corpuscular Hgb Conc 32.8 g/dL (32-36); Mean Corpuscular Volume 90.9 fL (80-100); Mean Platelet Volume 9.7 fL (7.4-10.4); Monocytes # (auto) 0.59 K/uL (0.11-0.59); Monocytes % (auto) 6.5 %; Neutrophils # (auto) 7.26 K/uL (1.4-6.5); Neutrophils % (auto) 80.2 %; Platelet Count 181 K/uL (130-400); RDW Coefficient of Variation 13.9 % (11.5-14.5); RDW Standard Deviation 45.9 fL (36.4-46.3); Red Blood Count 4.39 M/uL (4.7-6.1); White Blood Count 9.06 K/uL (4.8-10.8)
[2021-02-27 14:02] LABS: Partial Thromboplastin Time 25.1 Seconds (21.0-31.0); Prothrombin Time 10.3 Seconds (9.0-12.0)
[2021-02-27 14:03] LABS: Alanine Aminotransferase 23 U/L (12-78); Albumin Level 3.2 gm/dl (3.4-5.0); Aspartate Aminotransferase 11 U/L (15-37); BUN Creatinine Ratio 23.6 (10-20); Blood Urea Nitrogen 29 mg/dl (7-18); Calcium 9.1 mg/dl (8.5-10.1); Carbon Dioxide 27 mmol/L (21-32); Chloride 106 mmol/L (98-107); Creatinine Clr Calc Pharmacy 92.9 ml/min; Est GFR (African American) 73.5 ml/min; Est GFR (Non-African American) 63.4 ml/min; Glucose 150 mg/dl (70-99); Lipase 84 U/L (73-393); Potassium 4.5 mmol/L (3.5-5.1); Sodium 139 mmol/L (136-145)
[2021-02-27 14:08] LABS: Albumin Globulin Ratio 0.7 (0.9-2); Alkaline Phosphatase 84 U/L (45-117); Bilirubin,Total 0.5 mg/dl (0.2-1); Globulin 4.3 gm/dl (2.5-4.0); Total Protein 7.5 gm/dl (6.4-8.2); Troponin I < 0.015 ng/ml (0-0.045)
--- NOTE | 2021-02-27 16:00 | XRay Report ---
XR chest 1V portable HISTORY: Atypical Chest Pain COMPARISON: Chest CTA 02/21/2021. FINDINGS: No pneumothorax. Small bilateral pleural effusions and hazy bibasilar densities. This is ne w from the prior study. The heart is mildly enlarged. No evidence for pulmonary edema. IMPRESSION: Interval development of small bilateral pleural effusions and hazy bibasilar densities. This could re present atelectasis or developing pneumonia. ACT 112: Negative or not required by law. Electronically signed by: Herson Villatoro M.D. 02/27/2021 3:59 PM
--- NOTE | 2021-02-27 19:00 | Emergency Department Note ---
History of Present Illness General Chief complaint: Chest Pain Stated complaint: sob, headache, chest pain Time Seen by Provider: 02/27/21 18:22 History of Present Illness Provider complaint: Syncope chest pain headache Onset (ago): week(s) 1 Associated symptoms: + chest pain, + headaches and + syncope; no cough or no nausea/vomiting 60-year-old male presents emergency department for chest pain, headache, and syncope. Patient reports he was just seen in the emergency department 1 week ago for this. He states since being discharged from the hospital last week he has had 3 syncopal episodes on Tuesday, Tuesday, and today. Patient denies hitting his head. He states today he passed out in his recliner. Patient states he was supposed to be admitted to the hospital yesterday however there was a misunderstanding and he was not admitted. He currently denies any chest pain or headache. Patient states he does not feel safe going home and is requesting admission at this time. Home Medications Medication Instructions Recorded Confirmed Type atorvastatin 20 mg tablet 20 mg PO HS 11/07/20 02/21/21 History glimepiride 4 mg tablet 8 mg PO QDD 11/07/20 02/21/21 History metformin 1,000 mg tablet 1,000 mg PO BID 11/07/20 02/21/21 History multivitamin 1 tab PO DAILY 11/07/20 02/21/21 History pioglitazone 30 mg tablet 30 mg PO DAILY 11/07/20 02/21/21 History dulaglutide 1.5 mg/0.5 mL 0 mg SUBCUT UD 02/21/21 02/21/21 History subcutaneous pen injector (Trulicity) gabapentin 100 mg capsule 200 mg PO TID 02/21/21 02/21/21 History hydrochlorothiazide 25 mg tablet 25 mg PO DAILY 02/21/21 02/21/21 History Allergies Allergy/AdvReac Type Severity Reaction Status Date / Time No Known Allergies Allergy Mild Unverified 02/21/21 09:31 Past Med/Surg History Medical History Diabetes mellitus, type II HLD (hyperlipidemia) HTN (hypertension) Morbid obesity No pertinent family history JASSON (obstructive sleep apnea) Surgical History No pertinent past surgical history Family History Other Diabetes Social History Smoking Status: Former smoker Cigarettes Per Day: 1; Second Hand Exposure: No; Hx Alcohol Use: Yes Alcohol type: beer Hx Substance Use: No Preferred Language: Solomon Islander Communication Ability: Effective 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 Beliefs That Will Affect Care: None marital status: Current Living Situation: Spouse How many Children do You have: 3 Feels Safe at Home: Yes Assistive Devices: Oxygen - Continuous Review of Systems A total of 10 systems reviewed and were otherwise negative Physical Exam Vital Signs Vital Signs - 24 hr 02/27/21 13:01 02/27/21 18:27 02/27/21 18:28 Temperature 36.7 C Temperature Source Oral Pulse Rate 102 H Pulse Rate [Apical] 106 H Pulse Rhythm Regular Pulse Strength Normal Respiratory Rate 22 18 Respiratory Effort / Characteristics Non-Labored Respiratory Depth Normal Respiratory Pattern Regular Blood Pressure 144/93 H Blood Pressure [Right Arm] 109/52 L Blood Pressure Mean 110 Blood Pressure Mean [Right Arm] 71 Blood Pressure Position Sitting Pulse Oximetry 96 94 Oxygen Delivery Method Room Air Room Air Room Air Sepsis Recent Fever Within 48 Hours No Sepsis New/Unexplained Change in Mental Status N/A Sepsis Action Taken by Nursing No Action Required Physical Exam GENERAL: He is oriented to person, place, and time. He appears well-developed and well-nourished. He does not appear distressed. HENT: Exam performed. - Head: Normocephalic and atraumatic. - Right Ear: External ear normal. No mastoid tenderness. - Left Ear: External ear normal. No mastoid tenderness. - Mouth/Throat: The oropharynx is clear and moist. No trismus in the jaw. No dental abscesses or uvula swelling. No oropharyngeal exudate or tonsillar abscesses. EYES: Conjunctivae and EOM are normal. Pupils are equal, round, and reactive to light. Right eye exhibits no discharge. Left eye exhibits no discharge. No scleral icterus. NECK: Normal range of motion. Neck supple. No JVD present. No spinous process tenderness present. No carotid bruit present. No rigidity. No tracheal deviation and normal range of motion present. No Brudzinski's sign and no Kernig's sign noted. CV: Normal rate, regular rhythm, normal heart sounds and intact distal pulses. There is no peripheral edema. Palpable radial pulses bue. PULM/CHEST: Effort normal and breath sounds normal. No respiratory distress. No stridor. He has no wheezes. He has no rales. - Chest Wall: He exhibits no tenderness. ABD: The abdomen is soft. Bowel sounds are normal. He has no distension. No mass is present. There is no tenderness. There is no rebound, no guarding, no Daily's sign and no tenderness at McBurney's point. Rovsig negative. MUSC/SKEL: Normal range of motion. There is no peripheral edema, tenderness or deformity. LYMPH: No cervical adenopathy. NEURO: He is alert and oriented to person, place, and time. He has normal strength. No cranial nerve deficit or sensory deficit. Coordination and gait normal. GCS eye subscore is 4. GCS verbal subscore is 5. GCS motor subscore is 6. Cerebellar tests wnl. SKIN: Skin is warm and dry. He is not diaphoretic. PSYCH: He has a normal mood and affect. Behavior is normal. Judgment and thought content normal. Course Course 1821: The patient was evaluated in room C6. A complete history and physical exam was performed Cardiac monitoring: An order was placed for continuous cardiac monitoring. The monitor shows a rate of 90 with sinus rhythm Patient was seen during a time of extreme volume and extreme acuity during the COVID-19 pandemic. Nursing triage protocols were initiated and labs were drawn by protocol in the triage area. EMR reviewed. Patient was seen in the emergency department on February 21, 2021, 6 days ago. The patient had negative blood work as well as a negative CTA of the chest and CT scan of the head. He was admitted to the hospital and discharged the subsequent day. At that time the patient was seen by cardiology and had an echo did not show any gross abnormalities. Labs and imaging are within normal limits today. EKG is stable. Patient and at bedside are very upset about not being admitted to the hospital yesterday as a stated that they were exposed to be admitted yesterday. They state they do not feel safe going home. Will discuss with [facility] hospitalist team and admit the patient to their service. 1904: Spoke with Cassidy Del Valle states admit to Dr. Devine Medical Decision Making Laboratory Data Result diagrams: 02/27/21 13:25 02/27/21 13:25 Lab Results 02/27/21 02/27/21 02/27/21 Range/Units 13:25 13:25 13:25 WBC 9.06 (4.8-10.8) K/uL RBC 4.39 L (4.7-6.1) M/uL Hgb 13.1 L (14.0-18.0) g/dL Hct 39.9 L (42-52) % MCV 90.9 (80-100) fL MCH 29.8 (25-34) pg MCHC 32.8 (32-36) g/dL RDW Std Deviation 45.9 (36.4-46.3) fL RDW Coeff of Solomon 13.9 (11.5-14.5) % Plt Count 181 (130-400) K/uL MPV 9.7 (7.4-10.4) fL Immature Gran % (Auto) 0.2 % Neut % (Auto) 80.2 % Lymph % (Auto) 12.5 % Labette % (Auto) 6.5 % Eos % (Auto) 0.4 % Baso % (Auto) 0.2 % Neut # (Auto) 7.26 H (1.4-6.5) K/uL Lymph # (Auto) 1.13 L (1.2-3.4) K/uL Labette # (Auto) 0.59 (0.11-0.59) K/uL Eos # (Auto) 0.04 (0-0.5) K/uL Baso # (Auto) 0.02 (0-0.2) K/uL Immature Gran # (Auto) 0.02 (0.00-0.02) K/uL PT 10.3 (9.0-12.0) Seconds INR 1.0 (0.9-1.1) APTT 25.1 (21.0-31.0) Seconds PTT Ratio 1.0 Sodium 139 (136-145) mmol/L Potassium 4.5 (3.5-5.1) mmol/L Chloride 106 (98-107) mmol/L Carbon Dioxide 27 (21-32) mmol/L Anion Gap 6.0 (3-11) BUN 29 H (7-18) mg/dl Creatinine 1.23 (0.6-1.4) mg/dl Est Cr Clr Drug Dosing 92.9 ml/min Est GFR ( Amer) 73.5 ml/min Est GFR (Non-Af Amer) 63.4 ml/min BUN/Creatinine Ratio 23.6 H (10-20) Glucose 150 H (70-99) mg/dl Calcium 9.1 (8.5-10.1) mg/dl Total Bilirubin 0.5 (0.2-1) mg/dl AST 11 L (15-37) U/L ALT 23 (12-78) U/L Alkaline Phosphatase 84 (45-117) U/L Troponin I < 0.015 (0-0.045) ng/ml Total Protein 7.5 (6.4-8.2) gm/dl Albumin 3.2 L (3.4-5.0) gm/dl Globulin 4.3 H (2.5-4.0) gm/dl Albumin/Globulin Ratio 0.7 L (0.9-2) Lipase 84 (73-393) U/L Imaging Data Radiologist's Impression: Chest X-Ray 02/27/21 13:22 XR chest 1V portable HISTORY: Atypical Chest Pain COMPARISON: Chest CTA 02/21/2021. FINDINGS: No pneumothorax. Small bilateral pleural effusions and hazy bibasilar densities. This is new from the prior study. The heart is mildly enlarged. No evidence for pulmonary edema. IMPRESSION: Interval development of small bilateral pleural effusions and hazy bibasilar densities. This could represent atelectasis or developing pneumonia. ACT 112: Negative or not required by law. Electronically signed by: Herson Villatoro M.D. 02/27/2021 3:59 PM ECG Data Indication: + syncope Rate (beats per minute): 100 Rhythm: + normal sinus ECG ST segments: + Normal ST segments Comparison ECG Date: from (February 21, 2021) Change: no significant change Additional Comments: DE 196 QRS 166 QTC 513 bifascicular block present. [facility] Narrative 1822: The patient was evaluated in room C6. A complete history and physical exam was performed Cardiac monitoring: An order was placed for continuous cardiac monitoring. The monitor shows a rate of 90 with sinus rhythm Patient was seen during a time of extreme volume and extreme acuity during the COVID-19 pandemic. Nursing triage protocols were initiated and labs were drawn by protocol in the triage area. EMR reviewed. Patient was seen in the emergency department on February 21, 2021, 6 days ago. The patient had negative blood work as well as a negative CTA of the chest and CT scan of the head. He was admitted to the hospital and discharged the subsequent day. At that time the patient was seen by cardiology and had an echo did not show any gross abnormalities. Labs and imaging are within normal limits today. EKG is stable. Patient and at bedside are very upset about not being admitted to the hospital yesterday as a stated that they were exposed to be admitted yesterday. They state they do not feel safe going home. Will discuss with [facility] hospitalist team and admit the patient to their service. 1904: Spoke with Cassidy Del Valle states admit to Dr. Devine Impression & Plan Syncope Discharge Plan Visit Data Chief Complaint: Chest Pain Stated Complaint: sob, headache, chest pain Discharge Problem: Syncope Patient Disposition: Being Evaluated by Hospitalist Forms Stand Alone Forms: My [facility] Prescriptions Prescriptions: No Action atorvastatin 20 mg tablet 20 mg PO HS RF: 0 metformin 1,000 mg tablet 1,000 mg PO BID RF: 0 pioglitazone 30 mg tablet 30 mg PO DAILY RF: 0 multivitamin Tablet 1 tab PO DAILY RF: 0 glimepiride 4 mg tablet 8 mg PO QDD RF: 0 hydrochlorothiazide 25 mg tablet 25 mg PO DAILY RF: 0 gabapentin 100 mg capsule 200 mg PO TID RF: 0 Trulicity 1.5 mg/0.5 mL pen injector 0 mg SUBCUT UD RF: 0 Referrals Referrals: Brayden Orozco DO [Primary Care Provider] -
--- NOTE | 2021-02-27 20:16 | History & Physical Report ---
Date of Service February 27, 2021 Assessment & Plan (1) Syncope: (2) Abnormal EKG: Plan: Patient is 60-year-old male with PMH DM II, HTN, HLD, JASSON, obesity presented to ER with c/o "passing out". History admission at [facility] 02/21/2021-02/22/2021 for syncopal episode while lifting with unremarkable workup other than bifascicular block on EKG. Thought possible orthostatic hypotension, vasovagal syncope. His Lasix and lisinopril were held. Pt with recurrent episodes however past 2 episodes with vertigo type description without syncope. Recent echo EF 55-60%, no wall motion abnormality, no significant valvular pathology. Recent CT head was unremarkable, CTA chest without PE, pleural effusion or infiltrate. In ER pt afebrile, P: 101, R: 22, BP: 144/93, 96% on RA. No leukocytosis, negative troponin,EKG: Bifascicular block, Patient denies any chest pain, other than pain to left lateral ribs with movement which has occured after his syncope and fall on 02/21/21. DDX: Arrhythmia, vertigo Obtain carotid Doppler Monitor on telemetry Initial troponin negative, trend troponin orthostatics Cardiology consult PT eval Sanjeev maneuver May need to consider neurology consult if recurrent syncope/vertigo symptoms CBC, BMP in a.m. Exertional SOB Atelectasis CXR with interval development of small bilateral pleural effusions and hazy bibasilar densities that could be atelectasis vs developing pneumonia Suspect atelectasis and not pneumonia as pt afebrile and no cough and has been avoiding deep inspiration secondary to rib Procalcitonin pending Will hold on antibiotics at this time Incentive spirometry Currently pt does not appear volume overloaded, monitor and may need to resume his lasix DM II A1c: 7.9 in 01/2021 Hold home agents Novolog sliding scale per protocol HTN Lasix and lisinopril [facility]. Pt unsure if has been taking his HCTZ Resume HCTZ and may need to consider resuming other meds tomorrow HLD Continue atorvastatin Sleep apnea, h/o obesity hypoventilation syndrome Pt reports is intolerant to CPAP DVT Prophylaxis SCDs Full code as per discussion with pt Follows with Dr Orozco for routine care Pt was seen and care coordinated with Dr Devine. See addendum History of Present Illness Chief Complaint: "Passing out" Primary Care Provider: Brayden Orozco DO Patient is 60-year-old male with PMH DM II, HTN, HLD, JASSON, obesity presented to ER with c/o "passing out". History admission at [facility] 02/21/2021-02/22/2021 for syncopal episode while lifting. During that admission patient noted to have abnormal EKG with bifascicular block. He had echoWith EF 55-60%, no wall motion abnormality, no significant valvular pathology. CT head was unremarkable, CTA chest without PE, pleural effusion or infiltrate. It was thought he had a vasovagal syncopal episode, orthostatic hypotension/dehydration. His Lasix and lisinopril was held upon hospital discharge. Patient had Zio patch and reports he returned that yesterday, Results are pending. He reports he has had 3 similar episodes since hospital discharge. Patient states had episode when he was deer hunting and shooting his gun he reports had sudden episode of "world with being around me" and reports he fell down. Denies any associated nausea or vomiting with this episode. He reports another episode this week where he was sitting talking on the phone when he had sudden onset of "world spinning" that lasted several seconds and did not have LOC. Patient states he has had some episodes of feeling like his heart was beating, he denies feeling heart racing and doesn't think this happens with the spinning episodes. Denies any associated chest pain. He does report past week has become winded with exertion. He states the initial episode last week that prompted initial admission he had a fall onto his left rib cage. Since his ribs have been hurting with movement. Patient denies any cough, fever or chills. Feel has had diffuse BURNS past week. Denies fever/chills, diaphoresis, N/V/D/C, vision changes, neck pain, CP, orthopnea, cough, sore throat, choking, otalgia, rhinorrhea, abdominal pain, paresthesias, weakness, extremity weakness, increased extremity edema, rashes, urinary symptoms. In ER pt afebrile, P: 101, R: 22, BP: 144/93, 96% on RA. No leukocytosis, negative troponin,EKG: Bifascicular block, CXR: Interval development of small bilateral pleural effusions and hazy bibasilar densities. This could represent atelectasis or developing pneumonia. Allergies Allergy/AdvReac Type Severity Reaction Status Date / Time No Known Allergies Allergy Mild Unverified 02/21/21 09:31 Home Medications Medication Instructions Recorded Confirmed Type atorvastatin 20 mg tablet 20 mg PO HS 11/07/20 02/27/21 History metformin 1,000 mg tablet 1,000 mg PO BID 11/07/20 02/27/21 History multivitamin 1 tab PO DAILY 11/07/20 02/27/21 History dulaglutide 1.5 mg/0.5 mL 0 mg SUBCUT WK 02/21/21 02/27/21 History subcutaneous pen injector (Trulicity) gabapentin 100 mg capsule 200 mg PO TID 02/21/21 02/27/21 History hydrochlorothiazide 25 mg tablet 25 mg PO DAILY 02/21/21 02/27/21 History Past Med/Surg History Medical History Diabetes mellitus, type II HLD (hyperlipidemia) HTN (hypertension) Morbid obesity No pertinent family history JASSON (obstructive sleep apnea) Surgical History No pertinent past surgical history Family History Other Diabetes Social History Smoking Status: Former smoker Second Hand Exposure: No; Hx Alcohol Use: Yes Alcohol type: beer Alcohol Intake Frequency: Monthly or Less Hx Substance Use: No Preferred Language: Somali Communication Ability: Effective 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 Beliefs That Will Affect Care: None marital status: Current Living Situation: Spouse How many Children do You have: 3 Feels Safe at Home: Yes Assistive Devices: Oxygen - Continuous Review of Systems Review of Systems: All systems reviewed & are unremarkable except as noted in HPI & below Physical Exam Physical Exam: General: no acute distress, obese Head: normocephalic, atraumatic Eyes: PERRL, EOM's intact, conjunctiva non-injected, anicteric ENT: normal inspection external ears, nose, mucous membranes moist Neck: supple, trachea midline Lungs: no respiratory distress, diminished breath sounds, no wheezing/rhonchi/rales CV: tachycardia at 102, regular rhythm, trace pretibial edema; left lateral lower chest wall with tenderness to palpation without crepitus Abd: +obese, normal BS, soft, non-tender Ext: no cyanosis, no calf tenderness Neuro: A&O x 3, no focal deficits noted, normal affect, pt unwilling to be supine in bed to further test for any reproducible vertigo symptoms Skin: warm, dry Results & Data Results & Data ([facility]) Vital Signs (Past 12 Hours) Vital Signs Temp Pulse Pulse Resp BP BP Pulse Ox 02/27/21 19:15 101 H 20 133/80 95 02/27/21 18:27 106 H 18 109/52 L 94 02/27/21 13:01 36.7 C 102 H 22 144/93 H 96 Laboratory Results Short CBC 02/27/21 Range/Units 13:25 WBC 9.06 (4.8-10.8) K/uL Hgb 13.1 L (14.0-18.0) g/dL Hct 39.9 L (42-52) % Plt Count 181 (130-400) K/uL BMP 02/27/21 13:25 Sodium 139 Potassium 4.5 Chloride 106 Carbon Dioxide 27 BUN 29 H Creatinine 1.23 Glucose 150 H Calcium 9.1 Cardiac Enzymes 02/27/21 Range/Units 13:25 Troponin I < 0.015 (0-0.045) ng/ml Liver Function 02/27/21 Range/Units 13:25 Total Bilirubin 0.5 (0.2-1) mg/dl AST 11 L (15-37) U/L ALT 23 (12-78) U/L Alkaline Phosphatase 84 (45-117) U/L Albumin 3.2 L (3.4-5.0) gm/dl Diagnostic Findings Chest X-Ray 02/27/21 13:22 XR chest 1V portable HISTORY: Atypical Chest Pain COMPARISON: Chest CTA 02/21/2021. FINDINGS: No pneumothorax. Small bilateral pleural effusions and hazy bibasilar densities. This is new from the prior study. The heart is mildly enlarged. No evidence for pulmonary edema. IMPRESSION: Interval development of small bilateral pleural effusions and hazy bibasilar densities. This could represent atelectasis or developing pneumonia. ACT 112: Negative or not required by law. Electronically signed by: Herson Villatoro M.D. 02/27/2021 3:59 PM Code Status & VTE Plan VTE Prophylaxis Plan VTE Prophylaxis will be ordered: Yes Supervising Physician Co-Signing Physician Notes Care coordinated with Rhiannon Diamond PA-C. Agree with above note. Patient seen and examined. Please refer to her notes for full details. Vital signs reviewed. Physical exam: General exam: Alert and oriented. Not in acute distress. CVS: S1 and S2 heard, regular rate and rhythm, no murmurs. RS: Clear to auscultation, no wheezing or crackles. ABD: Soft, bowel sounds present, nontender, no distention. NETWORK FIELD ENGINEER: Nonfocal. EXT: No edema, no erythema. Labs: Reviewed. Assessment and plan: 60M who was recently in hospital for syncope work up unrevealing was discharged home and had one week of zio atc presents with recurrent symptoms of near syncope symptoms. Had couple more epsiodes after discharge. Once while he was in hunting last tuesday and once while he was sitting on the chair last tuesday. He fells like passing out. Heart racing. But no chest pain. Mild sob on exertion. Currently resting comfortably and hemodynamically stable. Near syncope monitor in tele orthostatics last admission lasix and lisnopril held. await zio patch results carotid doppler cardio consult in am. Exertional sob. last admission echo was ok july pepito to resume BP meds await cardio input, Other diagnosis and plan of care as per Rhiannon Diamond PA-C. Kevin dalal MD. (1) Syncope Syncope type: unspecified Qualified Code(s): R55 - Syncope and collapse
[2021-02-27] MEDS ORDERED: DEXTROSE 50% 50 ML SYRINGE IV PRN (23:01)
[2021-02-27] MEDS ORDERED: CARBOHYDRATES FOR HYPOGLYCEMIA PO PRN (23:01)
[2021-02-27] MEDS ORDERED: GLUCOSE 40% GEL 15 GM TUBE PO PRN (23:01)
[2021-02-27] MEDS ORDERED: GLUCOSE 10 TABS/TUBE PO PRN (23:01)
[2021-02-27] MEDS ORDERED: GLUCAGON FOR INJ 1 MG VIAL SQ PRN (23:01)
[2021-02-27] MEDS: ACETAMINOPHEN 325 MG TAB PO PRN (23:19)
--- NOTE | 2021-02-27 23:49 | Hospitalist Progress Note ---
Date of Service February 27, 2021 Assessment & Plan Admission and Anticipated Discharge Date Admission Date: February 27, 2021 Subjective Patient non complaint with cpap for his severe sleep apnea. Could be contr ibuting to his symptoms. Thanks Results & Data Results & Data ([facility]) Vital Signs (Past 12 Hours) Vital Signs Temp Pulse Pulse Resp BP BP Pulse Ox 02/27/21 22:12 96 H 20 149/84 H 100 02/27/21 21:36 104 H 20 140/79 94 02/27/21 20:36 99 H 20 154/72 H 93 02/27/21 19:15 101 H 20 133/80 95 02/27/21 18:27 106 H 18 109/52 L 94 02/27/21 13:01 36.7 C 102 H 22 144/93 H 96
[2021-02-28] MEDS: INSULIN ASPART 100 UNITS/ML 3 ML PEN SC SCH ×5 (00:25→21:24)
[2021-02-28] MEDS: GABAPENTIN 100 MG CAP PO SCH ×4 (00:28→21:25)
[2021-02-28] MEDS: ATORVASTATIN 20 MG TAB PO SCH ×2 (00:28→21:25)
[2021-02-28 06:37] LABS: Hematocrit (blood only) 38.9 % (42-52); Hemoglobin 12.6 g/dL (14.0-18.0); Mean Corpuscular Hemoglobin 29.6 pg (25-34); Mean Corpuscular Hgb Conc 32.4 g/dL (32-36); Mean Corpuscular Volume 91.5 fL (80-100); Mean Platelet Volume 10.2 fL (7.4-10.4); Platelet Count 163 K/uL (130-400); RDW Standard Deviation 46.4 fL (36.4-46.3); Red Blood Count 4.25 M/uL (4.7-6.1); White Blood Count 7.18 K/uL (4.8-10.8)
[2021-02-28 07:08] LABS: BUN Creatinine Ratio 25.3 (10-20); Calcium 8.6 mg/dl (8.5-10.1); Creatinine Clr Calc Pharmacy 104.2 ml/min; Est GFR (Non-African American) 75.1 ml/min; Potassium 4.1 mmol/L (3.5-5.1)
--- NOTE | 2021-02-28 08:02 | Ultrasound Report ---
BILATERAL CAROTID DOPPLER STUDY HISTORY: syncope COMPARISON: None. TECHNIQUE: Real-time, grayscale, and color Doppler sonography of the carotid arteries was performed. Imaging reviewed in the transverse and longitudinal planes. All measurements were calculated based on NASCET criteria. FINDINGS: Antegrade flow is seen in the bilateral vertebral arteries. The brachial pressures were not obtained. Mild to moderate calcified plaque within the bilateral carotid bulbs. The peak systolic velocity within the right ICA is 90 cm/s. The right systolic ratio is 1.3. The peak systolic velocity within the left ICA is 114 cm/s. The left systolic ratio is 1.6. IMPRESSION: No hemodynamically significant stenosis seen within the carotid arteries. ACT 112: Negative or not required by law. Electronically signed by: Herson Villatoro M.D. 02/28/2021 8:01 AM
[2021-02-28] MEDS: hydroCHLOROthiazide 25 MG TAB PO SCH (08:10)
[2021-02-28] MEDS: MULTIVITAMIN TAB PO SCH (08:10)
[2021-02-28] MEDS: ACETAMINOPHEN 325 MG TAB PO PRN ×2 (08:18→21:26)
--- NOTE | 2021-02-28 12:13 | Electrocardiogram Report ---
Test Reason : Blood Pressure : / mmHG Vent. Rate : 100 BPM Atrial Rate : 100 BPM P-R Int : 196 ms QRS Dur : 166 ms QT Int : 398 ms P-R-T Axes : 062 110 000 degrees QTc Int : 513 ms Normal sinus rhythm Right bundle branch block Left posterior fascicular block Bifascicular block T wave abnormality, consider inferior ischemia Abnormal ECG When compared with ECG of 21-FEB-2021 08:21, No significant change was found Confirmed by Brian Triplett ([id number]) on 02/28/2021 12:13:07 PM Referred By: Confirmed By:Brian Triplett
--- NOTE | 2021-02-28 12:29 | Electrocardiogram Report ---
Test Reason : Blood Pressure : / mmHG Vent. Rate : 094 BPM Atrial Rate : 094 BPM P-R Int : 212 ms QRS Dur : 170 ms QT Int : 410 ms P-R-T Axes : 052 114 -10 degrees QTc Int : 512 ms Sinus rhythm with 1st degree A-V block Right bundle branch block Left posterior fascicular block Bifascicular block T wave abnormality, consider inferior ischemia Abnormal ECG When compared with ECG of 27-FEB-2021 13:16, (unconfirmed) No significant change was found Confirmed by Brian Triplett ([id number]) on 02/28/2021 12:29:13 PM Referred By: REFERRED SELF Confirmed By:Brian Triplett
--- NOTE | 2021-02-28 12:46 | Cardiology Consultation ---
Date of Consultation February 28, 2021 Assessment & Plan (1) Syncope: (2) Abnormal EKG: Patient with recurrent syncope, and bradycardia noted on telemetry at time of previous admission 02/21/2021 to 02/22/2021, or overnight last night. Rhythm has been sinus rhythm in the 90s to low 100s. Ongoing conduction system disease noted however on EKG with first-degree AV block, right bundle branch block, left posterior fascicular block. Unrevealing 24-hour Holter monitor. Patient did have a Zio residential monitor on during his recurrent event on 02/25/2021. I checked on the [employer] website, and no results are available on the [place] monitor as of yet, it was returned with expedited shipping. Await MRI of the brain given recent headaches and recent spells. Some of the patient's symptoms may be characteristic of vertigo, but he has not had this chronically, this is all new. Continue observation on telemetry. History of Present Illness Attending Physician: Ghassan Smith MD History of Present Illness Andrew Rubin is a 60-year-old male with a history of obesity, BMI 40 kg/m, hypertension, type 2 diabetes mellitus and obstructive sleep apnea, seen in in nsultation for episodes of syncope and lightheadedness. His recent history dates back to 02/21/2021. He was contacting a trailer for his all-terrain vehicle to his truck, and when he bent over, he had a richar loss of postural tone episode and lost consciousness for 10 or 20 seconds, witnessed by his daughter. He states that he was mildly confused when he first regained consciousness and at first did not know where he was, but became aware soon thereafter. He notes that this is a physical task that he does regularly, usually once a week. The patient was admitted overnight, and had been seen in consultation by Dr. Aguayo of our practice. A single troponin has been measured on 02/21/2021 that was undetectable. It was noted that he has conduction system disease, with bifascicular block pattern on EKG (right bundle branch block, left posteriorfascicular block). Blood pressure was reasonably well controlled during that hospital stay without too many readings that were excessively high and no low blood pressures. Echocardiogram performed during that stay revealed mild to moderate concentric left ventricular perjury, no regional wall motion of rise, normal LVEF in the range of 55 to 60%, no significant valvular pathology. The patient was discharged on 02/22 with plans for outpatient follow-up. He however attempted to go hunting, and had recurrent episodes that he describes as being "head spinning ". He had another loss of consciousness episode he believes on 02/25/2021, and at that time he was wearing a Zio. In the meantime the monitor was removed at the cardiology clinic, and sent in for processing (results pending) and a 24-hour Holter monitor was placed which is yielded no arrhythmia. The patient had recurrent vague dizziness type spells prompting readmission overnight last night. EKG performed this morning 02/28/2021 revealed sinus rhythm at 94 bpm with first- degree AV block, WI interval 212 ms, right bundle branch block, and left posterior fascicular block. At the time my assessment today, he was comfortable in bed. Allergies Allergy/AdvReac Type Severity Reaction Status Date / Time No Known Allergies Allergy Mild Unverified 02/21/21 09:31 Home Medications Medication Instructions Recorded Confirmed Type atorvastatin 20 mg tablet 20 mg PO HS 11/07/20 02/27/21 History metformin 1,000 mg tablet 1,000 mg PO BID 11/07/20 02/27/21 History multivitamin 1 tab PO DAILY 11/07/20 02/27/21 History dulaglutide 1.5 mg/0.5 mL 0 mg SUBCUT WK 02/21/21 02/27/21 History subcutaneous pen injector (Trulicity) gabapentin 100 mg capsule 200 mg PO TID 02/21/21 02/27/21 History hydrochlorothiazide 25 mg tablet 25 mg PO DAILY 02/21/21 02/27/21 History Patient History Medical History Diabetes mellitus, type II HLD (hyperlipidemia) HTN (hypertension) Morbid obesity No pertinent family history JASSON (obstructive sleep apnea) Surgical History No pertinent past surgical history Family History Other Diabetes Social History Smoking Status: Former smoker Cigarettes Per Day: 1; Second Hand Exposure: No; Do You Dip or Chew Tobacco: No; Tobacco Cessation Education Requested by Patient: No Hx Alcohol Use: Yes Alcohol type: beer Alcohol Intake Frequency: Monthly or Less Hx Substance Use: No Preferred Language: Jordanian Communication Ability: Effective Mail Forwarding System Markup Clerk Required: No Beliefs That Will Affect Care: None marital status: Current Living Situation: Spouse How many Children do You have: 3 Other Information That Helps Us Care for You: No Feels Safe at Home: Yes Safety Concerns: Feels Safe At This Time Assistive Devices: Oxygen - at Night Review of Systems Review of Systems: All systems reviewed & are unremarkable except as noted in HPI & below Physical Exam Physical Exam: Temp Pulse Resp BP Pulse Ox 36.7 C 90 18 128/79 94 02/28/21 11:00 02/28/21 11:00 02/28/21 11:00 02/28/21 11:00 02/28/21 11:00 Constitutional: WD/WN, vitals as above Respiratory: normal respiratory effort, lungs clear to auscultation Cardiovascular: RRR, no murmur, no edema Neurologic: PERRL, EOMI, accommodation nl, no face palsy, no dysarthria Results & Data ([facility]) Vital Signs (Past 12 Hours) Vital Signs Temp Pulse Pulse Resp BP BP Pulse Ox 02/28/21 11:00 36.7 C 90 18 128/79 94 02/28/21 07:00 36.7 C 93 H 20 145/76 H 96 02/28/21 06:46 94 H 02/28/21 04:10 36.8 C 89 18 142/86 H 92 Diagnostic Findings Cardiac Enzymes 02/27/21 02/27/21 02/28/21 Range/Units 13:25 21:04 01:20 AST 11 L (15-37) U/L Troponin I < 0.015 < 0.015 < 0.015 (0-0.045) ng/ml Coagulation 02/27/21 Range/Units 13:25 PT 10.3 (9.0-12.0) Seconds APTT 25.1 (21.0-31.0) Seconds CBC 02/27/21 02/28/21 Range/Units 13:25 06:04 WBC 9.06 7.18 (4.8-10.8) K/uL RBC 4.39 L 4.25 L (4.7-6.1) M/uL Hgb 13.1 L 12.6 L (14.0-18.0) g/dL Hct 39.9 L 38.9 L (42-52) % Plt Count 181 163 (130-400) K/uL Neut # (Auto) 7.26 H (1.4-6.5) K/uL Lymph # (Auto) 1.13 L (1.2-3.4) K/uL [place] # (Auto) 0.59 (0.11-0.59) K/uL Eos # (Auto) 0.04 (0-0.5) K/uL Baso # (Auto) 0.02 (0-0.2) K/uL Comprehensive Metabolic Panel 02/27/21 02/28/21 Range/Units 13:25 06:04 Sodium 139 140 (136-145) mmol/L Potassium 4.5 4.1 (3.5-5.1) mmol/L Chloride 106 107 (98-107) mmol/L Carbon Dioxide 27 26 (21-32) mmol/L BUN 29 H 27 H (7-18) mg/dl Creatinine 1.23 1.07 (0.6-1.4) mg/dl Glucose 150 H 131 H (70-99) mg/dl Calcium 9.1 8.6 (8.5-10.1) mg/dl AST 11 L (15-37) U/L ALT 23 (12-78) U/L Alkaline Phosphatase 84 (45-117) U/L Total Protein 7.5 (6.4-8.2) gm/dl Albumin 3.2 L (3.4-5.0) gm/dl Intake and Output 02/27/21 02/28/21 02/28/21 22:59 06:59 14:59 Intake Total 150 / 150 Output Total 1050 / 1050 Balance -900 / -900 Intake: Oral 150 / 150 Output: Urine 1050 / 1050 Other: Weight 134.4 kg Weight Measurement Method Standing Scale Medications Administered Carotid duplex, 02/28/2021, normal (1) Syncope Syncope type: unspecified Qualified Code(s): R55 - Syncope and collapse
[2021-02-28] MEDS ORDERED: GADOBUTROL 65ML VIAL IV ONE (13:04)
--- NOTE | 2021-02-28 13:42 | Magnetic Resonance Report ---
Brain MRI WITH AND WITHOUT CONTRAST HISTORY: Recurrent Syncope TECHNIQUE: Multiplanar multisequence MRI of the brain was performed both before and after the intrave nous administration of contrast. COMPARISON STUDY: Head CT 02/21/2021. FINDINGS: There are no areas of restricted diffusion to suggest acute infarction. The midline structu res are intact. The paranasal sinuses are clear. The mastoid air cells are clear. The ventricles and sulci are within normal limits for age. There is no mass, hematoma, midline shift. The major vascular flow-voids at the skull base are well maintained. Postcontrast sequences show no areas of abnormal e nhancement. Mild motion artifact. A few punctate foci of T2 hyperintensity seen within the periventri cular and subcortical white matter of the supratentorial brain. These are nonspecific but favor mild age-related microvascular ischemic changes. IMPRESSION: 1. No acute infarct or intracranial hemorrhage. 2. A few punctate foci of T2 hyperintensity within the periventricular and subcortical white matter. These are nonspecific but favor mild age-related microvascular ischemic changes. ACT 112: Negative or not required by law. Electronically signed by: Herson Villatoro M.D. 02/28/2021 1:41 PM
--- NOTE | 2021-02-28 15:21 | Communication Note ---
Date of Service: February 28, 2021 Result addendum: MRI of the brain revealed no acute pathology. Patient has been on multiple diabetes medications. Hypoglycemia has apparently not been documented with his recent episodes. He however has had several recent changes in his regimen. Per review of his outpatient record, pioglitazone 30 mg daily was discontinued on 01/30/2021 due to concerns of it contributing to lower extremity edema. Trulicity was increased from 0.75 mg daily to 1.5 mg daily on 01/30/2021. Most recent hemoglobin A1c measurements 01/29/2021 7.9%, 02/21/2021 7.7%. Although his presenting symptoms did not occur until 02/21, I think would be reasonable to titrate his Trulicity back down to its previous dose of 0.75 mg daily as discussed with Dr. Smith. Await results of the section gang worker which anticipate will likely take another week. Patient should abstain from driving a motor vehicle pending further assessment. Has cardiology follow-up scheduled Dr. Aguayo on 03/18/2021.
--- NOTE | 2021-02-28 16:46 | Hospitalist Progress Note ---
Date of Service February 28, 2021 Assessment & Plan (1) Syncope: (2) Abnormal EKG: Plan: Patient is a 60 yr male with PMH DM II, HTN, HLD, JASSON, obesity presented to ER with c/o "passing out". History admission at [facility] 02/21/2021-02/22/2021 for syncopal episode while lifting with unremarkable workup other than bifascicular block on EKG. presents with recurrent syncopal episodes. Recent echo EF 55-60%, no wall motion abnormality, no significant valvular pathology. Recent CT head was unremarkable, CTA chest without PE, pleural effusion or infiltrate. Recurrent Syncope Abnormal EKG with first-degree AV block, right bundle branch block, left posterior fascicular block Patient did have ZIO rn cardiac cath--Results pending -MRI Brain :No acute infarct or intracranial hemorrhage. A few punctate foci of T2 hyperintensity within the periventricular and subcortical white matter. These are nonspecific but favor mild age-related microvascular ischemic changes. -Carotid USD:No hemodynamically significant stenosis seen within the carotid arteries. -Recent ECHO reviewed -PT eval completed: Unlikely BPPV -On Trulicity for last 2 months:Recently increased dose from 0.75mg to 1.5 mg 1.5 mg daily on 01/30/2021 -? Trulicity causing conduction problems -Continue to monitor on Tele -Plan to decrease Trulicity back to 0.75 mg but patient likely planning to stop it entirely -Further management based on ZIO results -Fall precautions Atelectasis CXR with interval development of small bilateral pleural effusions and hazy bibasilar densities that could be atelectasis vs developing pneumonia Procalcitonin normal Incentive spirometry No signs of volume overload clinically DM II A1c: 7.9 in 01/2021 Previously on pioglitazone which was discontinued secondary to leg edema On Metformin Trulicity recently increased from 0.75 mg daily to 1.5 mg daily on 01/30/2021 Plan to decrease Trulicity back to 0.75 mg secondary to above Off note: Patient plans to discontinue Trulicity entirely Advised patient to follow-up with PCP for further adjustment of diabetic medications ISS while hospitalized HTN Lasix and lisinopril have been on hold since last discharge 1 week ago Resume HCTZ as able HLD Continue atorvastatin Sleep apnea, h/o obesity hypoventilation syndrome Intolerant to CPAP We will do nocturnal oximetry study today DVT Px: SCDs for now Code Status Full code Admission and Anticipated Discharge Date Admission Date: February 27, 2021 Subjective Patient is seen and examined at bedside States having chronic left rib pain since prior fall Denies any chest pain, shortness of breath, dizziness, nausea, abdominal pain Discussed with cardiology today Offers no other complaints Review of Systems Review of Systems: All systems reviewed & are unremarkable except as noted in Subjective Physical Exam Physical Exam: Physical Exam: Vitals signs as noted above General Appearance:Morbidly Obese, no apparent distress Head: normocephalic, Atraumatic Eyes: normal inspection, EOMI Neck: supple, Trachea midline Respiratory/Chest: Decreased breath sounds, CTA Cardiovascular: S1, S2, No murmur Abdomen/GI:Soft, Non tender, Bowel sounds present Extremities/Musculoskeletal:normal inspection, no edema Neurologic/Psych:AAOX3, grossly no focal neurological deficits Skin: normal color, warm Results & Data Results & Data ([facility]) Vital Signs (Past 12 Hours) Vital Signs Temp Pulse Pulse Pulse Resp BP BP 02/28/21 15:45 36.7 C 92 H 92 H 18 143/76 H 02/28/21 11:00 36.7 C 90 18 128/79 02/28/21 07:00 36.7 C 93 H 20 145/76 H 02/28/21 06:46 94 H Pulse Ox 02/28/21 15:45 97 02/28/21 11:00 94 02/28/21 07:00 96 02/28/21 06:46 Laboratory Results Short CBC 02/28/21 Range/Units 06:04 WBC 7.18 (4.8-10.8) K/uL Hgb 12.6 L (14.0-18.0) g/dL Hct 38.9 L (42-52) % Plt Count 163 (130-400) K/uL BMP 02/28/21 06:04 Sodium 140 Potassium 4.1 Chloride 107 Carbon Dioxide 26 BUN 27 H Creatinine 1.07 Glucose 131 H Calcium 8.6 Cardiac Enzymes 02/27/21 02/28/21 Range/Units 21:04 01:20 Troponin I < 0.015 < 0.015 (0-0.045) ng/ml (1) Syncope Syncope type: unspecified Qualified Code(s): R55 - Syncope and collapse
[2021-03-01 06:45] LABS: Hematocrit (blood only) 38.1 % (42-52); Hemoglobin 12.6 g/dL (14.0-18.0); Mean Corpuscular Hgb Conc 33.1 g/dL (32-36); Mean Corpuscular Volume 90.7 fL (80-100); Mean Platelet Volume 9.9 fL (7.4-10.4); Platelet Count 153 K/uL (130-400); RDW Coefficient of Variation 13.8 % (11.5-14.5); RDW Standard Deviation 45.3 fL (36.4-46.3); White Blood Count 6.06 K/uL (4.8-10.8)
[2021-03-01 07:17] LABS: BUN Creatinine Ratio 28.1 (10-20); Calcium 8.5 mg/dl (8.5-10.1); Creatinine Clr Calc Pharmacy 96.1 ml/min; Est GFR (African American) 78.9 ml/min; Est GFR (Non-African American) 68.1 ml/min; Magnesium 2.2 mg/dl (1.8-2.4); Potassium 4.1 mmol/L (3.5-5.1)
[2021-03-01] MEDS: ACETAMINOPHEN 325 MG TAB PO PRN (07:27)
[2021-03-01] MEDS: GABAPENTIN 100 MG CAP PO SCH (07:29)
[2021-03-01] MEDS: hydroCHLOROthiazide 25 MG TAB PO SCH (07:30)
[2021-03-01] MEDS: MULTIVITAMIN TAB PO SCH (07:31)
[2021-03-01] MEDS: INSULIN ASPART 100 UNITS/ML 3 ML PEN SC SCH ×2 (08:16→12:13)
--- NOTE | 2021-03-01 11:52 | Hospitalist Progress Note ---
Date of Service March 01, 2021 Assessment & Plan (1) Syncope: (2) Abnormal EKG: Plan: Patient is a 60 yr male with PMH DM II, HTN, HLD, JASSON, obesity presented to ER with c/o "passing out". History admission at [facility] 02/21/2021-02/22/2021 for syncopal episode while lifting with unremarkable workup other than bifascicular block on EKG. presents with recurrent syncopal episodes. Recent echo EF 55-60%, no wall motion abnormality, no significant valvular pathology. Recent CT head was unremarkable, CTA chest without PE, pleural effusion or infiltrate. Recurrent Syncope Abnormal EKG with first-degree AV block, right bundle branch block, left posterior fascicular block Patient did have ZIO radiation monitor--Results pending -MRI Brain :No acute infarct or intracranial hemorrhage. A few punctate foci of T2 hyperintensity within the periventricular and subcortical white matter. These are nonspecific but favor mild age-related microvascular ischemic changes. -Carotid USD:No hemodynamically significant stenosis seen within the carotid arteries. -Recent ECHO reviewed -PT eval completed: Unlikely BPPV -On Trulicity for last 2 months:Recently increased dose from 0.75mg to 1.5 mg 1.5 mg daily on 01/30/2021 -? Trulicity causing conduction problems -Continue to monitor on Tele -Plan to decrease Trulicity back to 0.75 mg but patient likely planning to stop it entirely -Further management based on ZIO results -Fall precautions -No rhythm issues on monitor Has follow-up appointment scheduled with Dr. Aguayo upon discharge Advised no driving until cleared by cardiology Atelectasis CXR with interval development of small bilateral pleural effusions and hazy bibasilar densities that could be atelectasis vs developing pneumonia Procalcitonin normal Incentive spirometry No signs of volume overload clinically DM II A1c: 7.9 in 01/2021 Previously on pioglitazone which was discontinued secondary to leg edema On Metformin Trulicity recently increased from 0.75 mg daily to 1.5 mg daily on 01/30/2021 Plan to decrease Trulicity back to 0.75 mg secondary to above Off note: Patient plans to discontinue Trulicity entirely Advised patient to follow-up with PCP for further adjustment of diabetic medications ISS while hospitalized HTN Lasix and lisinopril have been on hold since last discharge 1 week ago Resume HCTZ HLD Continue atorvastatin Sleep apnea, h/o obesity hypoventilation syndrome Intolerant to BiPAP Nocturnal oximetry study reviewed Explained importance of using BiPAP at bedtime Patient understands and agrees to Comply to use it. DVT Px: SCDs Code Status Full code Admission and Anticipated Discharge Date Admission Date: February 27, 2021 Subjective Patient is seen and examined at bedside States feeling well Had a very transient 1 to 2-second dizziness while trying to have a bowel movement earlier today " Its nothing similar to prior episodes" Currently denies any chest pain, shortness of breath, dizziness, nausea, abdominal pain No rhythm issues on monitor Offers no other complaints Review of Systems Review of Systems: All systems reviewed & are unremarkable except as noted in Subjective Physical Exam Physical Exam: Physical Exam: Vitals signs as noted above General Appearance:Morbidly Obese, no apparent distress Head: normocephalic, Atraumatic Eyes: normal inspection, EOMI Neck: supple, Trachea midline Respiratory/Chest: Decreased breath sounds, CTA Cardiovascular: S1, S2, No murmur Abdomen/GI:Soft, Non tender, Bowel sounds present Extremities/Musculoskeletal:normal inspection, no edema Neurologic/Psych:AAOX3, grossly no focal neurological deficits Skin: normal color, warm Results & Data Results & Data ([facility]) Vital Signs (Past 12 Hours) Vital Signs Temp Pulse Pulse Pulse Resp BP BP 03/01/21 11:00 36.5 C 87 20 159/85 H 180/107 H 03/01/21 07:32 36.5 C 95 H 20 131/80 03/01/21 07:18 98 H 03/01/21 03:52 36.4 C L 95 H 18 139/83 03/01/21 03:00 99 H 02/28/21 23:59 36.7 C 86 18 125/74 Pulse Ox Pulse Ox 03/01/21 11:00 94 03/01/21 07:32 93 03/01/21 07:18 03/01/21 03:52 98 03/01/21 03:00 98 02/28/21 23:59 99 Laboratory Results Short CBC 03/01/21 Range/Units 06:19 WBC 6.06 (4.8-10.8) K/uL Hgb 12.6 L (14.0-18.0) g/dL Hct 38.1 L (42-52) % Plt Count 153 (130-400) K/uL BMP 03/01/21 06:19 Sodium 142 Potassium 4.1 Chloride 108 H Carbon Dioxide 28 BUN 33 H Creatinine 1.16 Glucose 131 H Calcium 8.5 (1) Syncope Syncope type: unspecified Qualified Code(s): R55 - Syncope and collapse
--- NOTE | 2021-03-01 11:57 | Discharge Summary ---
Date of Service March 01, 2021 Admission HPI Per Admitting Provider Patient is 60-year-old male with PMH DM II, HTN, HLD, JASSON, obesity presented to ER with c/o "passing out". History admission at [facility] 02/21/2021-02/22/2021 for syncopal episode while lifting. During that admission patient noted to have abnormal EKG with bifascicular block. He had echoWith EF 55-60%, no wall motion abnormality, no significant valvular pathology. CT head was unremarkable, CTA chest without PE, pleural effusion or infiltrate. It was thought he had a vasovagal syncopal episode, orthostatic hypotension/dehydration. His Lasix and lisinopril was held upon hospital discharge. Patient had Zio patch and reports he returned that yesterday, Results are pending. He reports he has had 3 similar episodes since hospital discharge. Patient states had episode when he was deer hunting and shooting his gun he reports had sudden episode of "world with being around me" and reports he fell down. Denies any associated nausea or vomiting with this episode. He reports another episode this week where he was sitting talking on the phone when he had sudden onset of "world spinning" that lasted several seconds and did not have LOC. Patient states he has had some episodes of feeling like his heart was beating, he denies feeling heart racing and doesn't think this happens with the spinning episodes. Denies any associated chest pain. He does report past week has become winded with exertion. He states the initial episode last week that prompted initial admission he had a fall onto his left rib cage. Since his ribs have been hurting with movement. Patient denies any cough, fever or chills. Feel has had diffuse BURNS past week. Denies fever/chills, diaphoresis, N/V/D/C, vision changes, neck pain, CP, orthopnea, cough, sore throat, choking, otalgia, rhinorrhea, abdominal pain, paresthesias, weakness, extremity weakness, increased extremity edema, rashes, urinary symptoms. In ER pt afebrile, P: 101, R: 22, BP: 144/93, 96% on RA. No leukocytosis, negative troponin,EKG: Bifascicular block, CXR: Interval development of small bilateral pleural effusions and hazy bibasilar densities. This could represent atelectasis or developing pneumonia. Admission Exam Per Admitting Provider Physical Exam Physical Exam: General: no acute distress, obese Head: normocephalic, atraumatic Eyes: PERRL, EOM's intact, conjunctiva non-injected, anicteric ENT: normal inspection external ears, nose, mucous membranes moist Neck: supple, trachea midline Lungs: no respiratory distress, diminished breath sounds, no wheezing/rhonchi/rales CV: tachycardia at 102, regular rhythm, trace pretibial edema; left lateral lower chest wall with tenderness to palpation without crepitus Abd: +obese, normal BS, soft, non-tender Ext: no cyanosis, no calf tenderness Neuro: A&O x 3, no focal deficits noted, normal affect, pt unwilling to be supine in bed to further test for any reproducible vertigo symptoms Skin: warm, dry Principal Diagnosis Recurrent syncope Discharge Data Allergies Allergy/AdvReac Type Severity Reaction Status Date / Time No Known Allergies Allergy Mild Unverified 02/21/21 09:31 Consultations 02/27/21 18:35 ED Decision to Admit Stat 02/27/21 20:18 Consult Cardiology Routine Ordered Studies 02/28/21 US carotid doppler BI Routine 02/28/21 11:47 MR brain wo/w con Urgent Hospital Course (1) Syncope: (2) Abnormal EKG: Patient is a 60 yr male with PMH DM II, HTN, HLD, JASSON, obesity presented to ER with c/o "passing out". History admission at [facility] 02/21/2021-02/22/2021 for syncopal episode while lifting with unremarkable workup other than bifascicular block on EKG. presents with recurrent syncopal episodes. Recent echo EF 55-60%, no wall motion abnormality, no significant valvular pathology. Recent CT head was unremarkable, CTA chest without PE, pleural effusion or infiltrate. Recurrent Syncope Abnormal EKG with first-degree AV block, right bundle branch block, left posterior fascicular block Patient did have ZIO cardiac specialist--Results pending -MRI Brain :No acute infarct or intracranial hemorrhage. A few punctate foci of T2 hyperintensity within the periventricular and subcortical white matter. These are nonspecific but favor mild age-related microvascular ischemic changes. -Carotid USD:No hemodynamically significant stenosis seen within the carotid arteries. -Recent ECHO reviewed -PT eval completed: Unlikely BPPV -On Trulicity for last 2 months:Recently increased dose from 0.75mg to 1.5 mg 1.5 mg daily on 01/30/2021 -? Trulicity causing conduction problems -Continue to monitor on Tele -Plan to decrease Trulicity back to 0.75 mg but patient likely planning to stop it entirely -Further management based on ZIO results -Fall precautions -No rhythm issues on monitor Has follow-up appointment scheduled with Dr. Aguayo upon discharge Advised no driving until cleared by cardiology Atelectasis CXR with interval development of small bilateral pleural effusions and hazy bibasilar densities that could be atelectasis vs developing pneumonia Procalcitonin normal Incentive spirometry No signs of volume overload clinically DM II A1c: 7.9 in 01/2021 Previously on pioglitazone which was discontinued secondary to leg edema On Metformin Trulicity recently increased from 0.75 mg daily to 1.5 mg daily on 01/30/2021 Plan to decrease Trulicity back to 0.75 mg secondary to above Off note: Patient plans to discontinue Trulicity entirely Advised patient to follow-up with PCP for further adjustment of diabetic medications ISS while hospitalized HTN Lasix and lisinopril have been on hold since last discharge 1 week ago Resume HCTZ HLD Continue atorvastatin Sleep apnea, h/o obesity hypoventilation syndrome Intolerant to BiPAP Nocturnal oximetry study reviewed Explained importance of using BiPAP at bedtime Patient understands and agrees to Comply to use it. DVT Px: SCDs Code Status Full code Total Time Total Time Spent Total Time Spent (In Minutes): 39 minutes Discharge Plan Discharge Items Patient Disposition: Home - Self-Care Reason For Visit: SYNCOPE Discharge Diagnosis: Recurrent Syncope Activity: Per Instructions section Exercise/Sports: Gradually increase as tolerated Driving/Machine Use: No driving permitted until cleared by your advertising designer. Non-emergency contact: Primary Care Provider and Atmospheric Physics Professor Call non-emergency contact if: you have any medication questions, your symptoms worsen, your pain is concerning for you and you have a fever Follow-up/Referrals: Brayden Orozco DO [Primary Care Provider] - Diet: Carb Consistent or DM2 and Heart Healthy Addtl Attending Provider Instructions: Follow-up with your primary care physician Dr. Brayden Orozco in 1 week Follow-up with your advertising designer Dr. Aguayo on 03/18/2021s scheduled --- Your Zio patch results are pending. Follow-up with your advertising designer for results and further management --- Discussed with your primary care physician for management of diabetes mellitus as advised Seek immediate medical attention if your symptoms reoccur or worsen Please take all medications as instructed on discharge list below. Please call if you have any questions or problems. You can reach a [facility] hospitalist on duty at [facility] 24 hours a day by calling [phone] Pending Studies at Discharge: No Stand-Alone Forms: My [facility], Smoking Cessation Medications and DC Order Prescriptions: Continued atorvastatin 20 mg tablet 20 mg PO HS RF: 0 metformin 1,000 mg tablet 1,000 mg PO BID RF: 0 multivitamin Tablet 1 tab PO DAILY RF: 0 hydrochlorothiazide 25 mg tablet 25 mg PO DAILY RF: 0 gabapentin 100 mg capsule 200 mg PO TID RF: 0 Discontinued Trulicity 1.5 mg/0.5 mL pen injector 0 mg SUBCUT WK RF: 0 Discharge Orders: Discharge Order (Routine); Ordered 03/01/21 Ordered By: Ghassan Smith Admission Data Admit Date/Time: 02/27/21 19:39 Attending Provider: Ghassan Smith Admit Provider: Kevin Devine Primary Care Provider: Brayden Orozco Other Providers: Paul Aguirre ; Kevin Devine
== END 2021-03-01 14:03 | disposition home or self-care (01) ==
LOC: ED 13:00 → 2N 13:00 → SUATTDRO 19:39 → 2N 22:19

== ENCOUNTER 2023-08-11 16:55 | Observation (INO) ==
--- NOTE | 2023-08-11 17:27 | Emergency Department Note ---
History of Present Illness General Chief complaint: Pain (Generalized) Stated complaint: VOMIT, NO SUGAR MEDS, LIGHTHEADED Time Seen by Provider: 08/11/23 17:12 Source: patient, family ( was at the bedside and driving), RN notes reviewed and old records reviewed (07/25/23-diabetes clinic visit for management of his diabetes) Mode of arrival: ambulatory Limitations: no limitations History of Present Illness Maximum Pain Intensity: 10 This patient is a 60-year-old type II diabetic who comes in after feeling sick for 3 days with nausea and vomiting he cannot keep anything down he can tip his medication. His granddaughter and daughter both had this first and now he is sick. He has had no diarrhea no blood or melena stool no blood in his vomit or any coffee-ground emesis no fever no significant Yaniv pain just feels diffusely sore and achy. He is not taking any for pain because he cannot hold anything down. No urinary symptoms. decreased p.o. intake. no lower extremity pain or swelling no fall or trauma. Home Medications Medication Instructions Recorded Confirmed Type aspirin 81 mg tablet,delayed 81 mg PO DAILY 08/11/23 08/11/23 History release atorvastatin 20 mg tablet 20 mg PO DAILY 08/11/23 08/11/23 History dulaglutide 1.5 mg/0.5 mL 1.5 mg subcut Q7D 08/11/23 08/11/23 History subcutaneous pen injector (Trulicity) empagliflozin 10 mg tablet 10 mg PO DAILY 08/11/23 08/11/23 History (Jardiance) gabapentin 100 mg capsule 200 mg PO TID 08/11/23 08/11/23 History glipizide 5 mg tablet 5 mg PO DAILY 08/11/23 08/11/23 History hydrochlorothiazide 25 mg tablet 25 mg PO DAILY 08/11/23 08/11/23 History metformin 1,000 mg tablet 1,000 mg PO BID 08/11/23 08/11/23 History metoprolol succinate 25 mg 25 mg PO DAILY 08/11/23 08/11/23 History tablet,extended release 24 hr niacin 500 mg tablet 500 mg PO DAILY 08/11/23 08/11/23 History Allergies Allergy/AdvReac Type Severity Reaction Status Date / Time No Known Allergies Allergy Mild Verified 07/25/23 09:27 Past Med/Surg History Problem List (Updated 08/11/23 @ 23:55 by Nic Cabezas MD) Lab test negative for COVID-19 virus (Acute) Diarrhea (Acute) Weakness (Acute) Nausea & vomiting (Acute) Acute dehydration (Acute) Vitamin D deficiency Background diabetic retinopathy associated with type 2 diabetes mellitus Obesity Personal history of diabetic foot ulcer Pacemaker Dysesthesia Diabetes type 2, controlled (Acute) Dyslipidemia Hypertension Charcot's joint of foot in type 2 diabetes mellitus (Acute) Diabetic peripheral neuropathy associated with type 2 diabetes mellitus JASSON (obstructive sleep apnea) Medical History History of acute renal failure Surgical History No pertinent past surgical history Family History Other Diabetes Social History Smoking Status: Former smoker Cigarettes Per Day: 1; Second Hand Exposure: No; Do You Dip or Chew Tobacco: No; Hx Alcohol Use: Yes Alcohol type: beer Alcohol Intake Frequency: Monthly or Less Hx Substance Use: No Preferred Language: Filipino Communication Ability: Effective Visual Impairment: No Limitations Hearing Ability: Normal Risk Consultant Required: No Beliefs That Will Affect Care: None marital status: Current Living Situation: Spouse How many Children do You have: 3 Feels Safe at Home: Yes Diet: regular caffeine: No Assistive Devices: None Review of Systems A total of 10 systems reviewed and were otherwise negative Physical Exam Vital Signs Vital Signs - 24 hr 08/11/23 16:58 08/11/23 20:36 Temperature 36.7 C Temperature Source Temporal Artery Scan Pulse Rate 119 H Pulse Rate [Apical] 100 H Respiratory Rate 20 20 Respiratory Effort / Characteristics Non-Labored Spontaneous Respiratory Depth Normal Blood Pressure 123/83 Blood Pressure [Right Arm] 132/81 Blood Pressure Mean 96 Blood Pressure Mean [Right Arm] 98 Blood Pressure Position Sitting Pulse Oximetry 100 100 Oxygen Delivery Method Room Air Room Air Sepsis New/Unexplained Change in Mental Status N/A Sepsis Action Taken by Nursing No Action Required General: Well developed well nourished mildly ill-appearing older male who in no acute distress, breathing comfortably on room air. Normal speech HEENT: Normal cephalic atraumatic. Pupils are equal round and reactive to light. Extraocular movements are intact. Oropharynx is pink with moist mucous membranes. No swelling of the mouth lips or tongue. Neck: Supple with a midline trachea. No meningeal signs or stiffness, no JVD or bruits. No Stridor. Chest: Clear to auscultation bilaterally. No wheezes or rhonchi. No increased work of breathing. Heart: Regular rate and rhythm without murmurs or gallops. Abdomen: Soft nontender, nondistended without rebound guarding or rigidity. Extremities: No cyanosis clubbing or edema. No calf tenderness or assymetry Spine/Back. Non tender to palpation. No CVA tenderness Skin: Good turgor without rashes. Neurologic exam: Cranial nerves two through 12 are intact. Motor and sensation are intact and symmetrical throughout. Course Administered Medications Potassium Chloride/Sodium Chloride (Normal Saline W/20 Meq Kcl) 20 meq in 1,000 mls @ 80 mls/hr IV .[id number] [facility]; Protocol Stop: 08/12/23 10:29 Last Admin: 08/11/23 22:44 Dose: 80 mls/hr Documented By: RAFI Discontinued Medications Sodium Chloride (Nss) 1,000 mls @ 999 mls/hr IV .Q1H1M ONE Stop: 08/11/23 18:20 Last Infusion: 08/11/23 18:42 Dose: Infused Documented By: Admin: 08/11/23 17:37 Dose: 999 mls/hr Documented By: RAFI Sodium Chloride (Nss) 1,000 mls @ 999 mls/hr IV .Q1H1M ONE Stop: 08/11/23 19:54 Last Infusion: 08/11/23 20:24 Dose: Infused Documented By: Admin: 08/11/23 18:57 Dose: 999 mls/hr Documented By: RAFI Promethazine HCl (Phenergan) 12.5 mg in 50.5 mls @ 202 mls/hr IV NOW STA Stop: 08/11/23 20:42 Last Infusion: 08/11/23 21:27 Dose: Infused Documented By: Admin: 08/11/23 20:34 Dose: 202 mls/hr Documented By: NRB Acetaminophen (Ofirmev) 1,000 mg in 100 mls @ 400 mls/hr IV NOW STA Stop: 08/11/23 22:01 Last Infusion: 08/11/23 22:19 Dose: Infused Documented By: NRSirena Admin: 08/11/23 22:01 Dose: 400 mls/hr Documented By: RAFI Pantoprazole Sodium 40 mg/ (Syringe) 10 mls @ 5 mls/min IV NOW ONE Stop: 08/11/23 22:01 Last Admin: 08/11/23 22:41 Dose: 5 mls/min Documented By: RAFI Ondansetron HCl (Ondansetron Inj 2 Mg/Ml 2 Ml Vial) 4 mg IV NOW STA Stop: 08/11/23 17:21 Last Admin: 08/11/23 17:37 Dose: 4 mg Documented By: RAFI Medical Decision Making Differential Diagnosis Dehydration, viral illness, diabetic emergency, cardiac disease, intra-abdominal process, dehydration, electrolyte or metabolic abnormality, Medical Records Attestation: I reviewed the patient's medical records. Home Medications Current Medication List: was personally reviewed by me Laboratory Data Attestation: I reviewed the patient's lab results. 08/11/23 17:25 08/11/23 17:25 Lab Results 08/11/23 08/11/23 Range/Units 17:01 17:25 WBC 5.01 (4.8-10.8) K/ul RBC 5.67 (4.70-6.10) M/uL Hgb 17.2 (14.0-18.0) g/dl Hct 49.0 (42.0-52.0) % MCV 86.4 (80.0-100.0) fL MCH 30.3 (25.0-34.0) pg MCHC 35.1 (32.0-36.0) g/dL RDW Std Deviation 40.1 (36.4-46.3) fL RDW Coeff of Solomon 12.8 (11.5-14.5) % Plt Count 120 L (130-400) K/uL MPV 10.4 (9.4-12.4) fL Immature Gran % (Auto) 0.6 % Neut % (Auto) 84.8 % Lymph % (Auto) 8.0 % [place] % (Auto) 6.2 % Eos % (Auto) 0.2 % Baso % (Auto) 0.2 % Neut # (Auto) 4.25 (1.40-6.50) K/uL Lymph # (Auto) 0.40 L (1.20-3.40) K/uL [place] # (Auto) 0.31 (0.11-0.59) K/uL Eos # (Auto) 0.01 (0.00-0.50) K/uL Baso # (Auto) 0.01 (0.00-0.20) K/uL Immature Gran # (Auto) 0.03 (0.01-0.20) K/uL Sodium 136 (136-145) mmol/L Potassium 3.8 (3.5-5.1) mmol/L Chloride 99 (98-107) mmol/L Carbon Dioxide 25 (21-32) mmol/L Anion Gap 12 H (3-11) BUN 39 H (6-23) mg/dl Creatinine 1.34 (0.6-1.4) mg/dl Est Cr Clr Drug Dosing Not Reportable Est GFR ( Amer) 65.3 ml/min Est GFR (Non-Af Amer) 56.4 ml/min BUN/Creatinine Ratio 29.1 H (10-20) Glucose 246 H (70-99(Fasting)) mg/dl POC Glucose 193 H (70-99) mg/dl Calcium 8.5 L (8.6-10.3) mg/dl Magnesium 2.1 (1.7-2.4) mg/dl Total Bilirubin 1.0 (0.2-1.0) mg/dl AST 26 (13-39) U/L ALT 35 (7-52) U/L Alkaline Phosphatase 61 (34-104) U/L Troponin I High Sens 13.7 (0-20) pg/ml Total Protein 6.9 (6.0-8.3) gm/dl Albumin 3.8 (3.4-5.0) gm/dl Globulin 3.1 (2.5-4.0) gm/dl Albumin/Globulin Ratio 1.2 (0.9-2) Lipase 13 (11-82) U/L Imaging Data My Impression: Chest x-rayno acute infiltrate, failure, pneumothorax seen. Pacemaker in place. Radiologist's Impression: Chest X-Ray 08/11/23 17:20 XR chest 1V portable HISTORY: 62 years-old Male Chest pain, nonspecific COMPARISON: 03/15/2021 TECHNIQUE: AP view of the chest FINDINGS: Cardiomediastinal and hilar silhouettes are unchanged. Dual lead left subclavian pacer. No pneumothorax, pleural effusion or overt pulmonary edema. There is mild linear left basilar subsegmental atelectasis versus scarring. Spondylotic spurring of the spine. IMPRESSION: No acute process. ACT 112: Negative or not required by law. The above report was generated using voice recognition software. It may contain grammatical, syntax or spelling errors. Electronically signed by: Agustin Shipley M.D. 08/11/2023 5:44 PM ECG Data Attestation: I personally reviewed and interpreted this ECG as follows: Indication: + vomiting Rate (beats per minute): 111 Rhythm: + sinus tachycardia ECG Intervals/blocks: + Right Bundle branch block and + Normal QT ECG [place]: + Normal ECG ST segments: + Normal ST segments ECG Findings: no PACs or no PVCs Comparison ECG Date: from (03/15/21) Change: no significant change MDM Narrative This patient comes in as scribed above. He was placed on a pvc monitor and C7. He is here for treatment evaluation nausea vomiting. Clinically I think he is dehydrated. He was exposed to 2 other sick contacts with similar complaints he is a diabetic and his other medical problems however. We did check a blood sugar in triage was 190s therefore it is unlikely a diabetic emergency. He was placed on a pvc monitor. IV access was established and he was hydrated with a 1 L IV normal saline bolus and Zofran 4 mg IV . EKG, chest x-ray multiple blood testing was obtained. Was reassessed frequently. Despite having 2 L IV of normal saline total and Zofran 4 mg IV and additional Phenergan 12.5 mg IV he still is very nauseated does not feel he can go home he is noticing electrolyte or metabolic abnormalities. I do think he needs to be admitted for further hydration and evaluation. I discussed case with Dr. Wellington who will see in the ER for these meds Continuous pvc monitor: Orders placed in the EMR for continuous cardiac monitoring: Upon my evaluation he was noted to be in normal sinus rhythm rate of 98 Impression & Plan Weakness, Diabetes type 2, controlled, Acute dehydration, Nausea & vomiting, Diarrhea, Lab test negative for COVID-19 virus Discharge Plan Visit Data Chief Complaint: Pain (Generalized) Stated Complaint: VOMIT, NO SUGAR MEDS, LIGHTHEADED ED Provider: Nic Cabezas Discharge Problem: Weakness, Diabetes type 2, controlled, Acute dehydration, Nausea & vomiting, Diarrhea, Lab test negative for COVID-19 virus Patient Disposition: Admitted As Inpatient Discharge Instructions Interventions: ED Discharge Assessment Last Done: 08/11/23 22:38 Discharge Problem: Diabetes type 2, controlled Qualifiers: Diabetes mellitus mcfp insulin use: unspecified mcfp insulin use status Diabetes mellitus complication status: without complication Qualified Code(s): E11.9 - Type 2 diabetes mellitus without complications Nausea & vomiting Qualifiers: Vomiting type: unspecified Qualified Code(s): R11.2 - Nausea with vomiting, unspecified Diarrhea Qualifiers: Diarrhea type: unspecified type Qualified Code(s): R19.7 - Diarrhea, unspecified
[2023-08-11] MEDS: ONDANSETRON INJ 2 MG/ML 2 ML VIAL IV STA (17:37)
[2023-08-11] MEDS: SODIUM CHLORIDE 0.9% 1,000 ML IV ONE ×2 (17:37→18:57)
--- NOTE | 2023-08-11 17:45 | XRay Report ---
XR chest 1V portable HISTORY: 62 years-old Male Chest pain, nonspecific COMPARISON: 03/15/2021 TECHNIQUE: AP view of the chest FINDINGS: Cardiomediastinal and hilar silhouettes are unchanged. Dual lead left subclavian pacer. No pneumothor ax, pleural effusion or overt pulmonary edema. There is mild linear left basilar subsegmental atelect asis versus scarring. Spondylotic spurring of the spine. IMPRESSION: No acute process. ACT 112: Negative or not required by law. The above report was generated using voice recognition software. It may contain grammatical, syntax o r spelling errors. Electronically signed by: Agustin Shipley M.D. 08/11/2023 5:44 PM
[2023-08-11 18:03] LABS: Basophils # (auto) 0.01 K/uL (0.00-0.20); Basophils % (auto) 0.2 %; Eosinophils # (auto) 0.01 K/uL (0.00-0.50); Eosinophils % (auto) 0.2 %; Hemoglobin 17.2 g/dl (14.0-18.0); Immature Granulocytes # (auto) 0.03 K/uL (0.01-0.20); Immature Granulocytes % (auto) 0.6 %; Mean Corpuscular Hemoglobin 30.3 pg (25.0-34.0); Mean Corpuscular Hgb Conc 35.1 g/dL (32.0-36.0); Mean Corpuscular Volume 86.4 fL (80.0-100.0); Mean Platelet Volume 10.4 fL (9.4-12.4); Monocytes # (auto) 0.31 K/uL (0.11-0.59); Monocytes % (auto) 6.2 %; Neutrophils # (auto) 4.25 K/uL (1.40-6.50); Neutrophils % (auto) 84.8 %; Platelet Count 120 K/uL (130-400); RDW Coefficient of Variation 12.8 % (11.5-14.5); RDW Standard Deviation 40.1 fL (36.4-46.3); Red Blood Count 5.67 M/uL (4.70-6.10); White Blood Count 5.01 K/ul (4.8-10.8)
[2023-08-11 18:06] LABS: Alanine Aminotransferase 35 U/L (7-52); Albumin Globulin Ratio 1.2 (0.9-2); Albumin Level 3.8 gm/dl (3.4-5.0); Alkaline Phosphatase 61 U/L (34-104); Anion Gap 12 (3-11); Aspartate Aminotransferase 26 U/L (13-39); BUN Creatinine Ratio 29.1 (10-20); Blood Urea Nitrogen 39 mg/dl (6-23); Calcium 8.5 mg/dl (8.6-10.3); Carbon Dioxide 25 mmol/L (21-32); Chloride 99 mmol/L (98-107); Est GFR (African American) 65.3 ml/min; Est GFR (Non-African American) 56.4 ml/min; Globulin 3.1 gm/dl (2.5-4.0); Glucose 246 mg/dl (70-99(Fasting)); Lipase 13 U/L (11-82); Potassium 3.8 mmol/L (3.5-5.1); Sodium 136 mmol/L (136-145); Total Protein 6.9 gm/dl (6.0-8.3)
[2023-08-11 18:12] LABS: Troponin I High Sensitivity 13.7 pg/ml (0-20)
[2023-08-11] MEDS: PROMETHAZINE 12.5 MG/50.5 ML BAG IV STA (20:34)
--- NOTE | 2023-08-11 20:57 | History & Physical Report ---
Date of Service August 11, 2023 Assessment & Plan (1) Nausea & vomiting: (2) Background diabetic retinopathy associated with type 2 diabetes mellitus: (3) Hypertension: (4) Dyslipidemia: (5) JASSON (obstructive sleep apnea): Plan This is a 62-year-old male who has significant past medical history of T2DM, obesity hypoventilation syndrome, BiPAP dependence, HTN, HLD, restrictive lung disease, history of heart block status post pacemaker who presents to ED secondary to nausea vomiting x 3 days. History of Present Illness Chief Complaint: N/V x 3 days. Primary Care Provider: Brayden Orozco, This is a 62-year-old male who has significant past medical history of T2DM, obesity hypoventilation syndrome, BiPAP dependence, HTN, HLD, restrictive lung disease, history of heart block status post pacemaker who presents to ED secondary to nausea vomiting x 3 days. Discussed with ED provider who states pt has been ill for 3 days. He also has sick grandkids with a, "GI bug." He has mostly been in bed for 3 days. He has not been able to eat or drink anything for the past 3 days. He is also not been able to take any of his medications. Because of this he presented to the ED. In ED patient made hemodynamically stable though he was slightly tachycardic. He was hyperglycemic with a glucose of 246, elevated BUN at 39, stable creatinine 1.34, mild elevated anion gap at 12 and chest x-ray without acute process. He received 2 L of IV fluid in ED as well as IV antiemetics without significant improvement. He was recommended for admission to hospital. Allergies Allergy/AdvReac Type Severity Reaction Status Date / Time No Known Allergies Allergy Mild Verified 07/25/23 09:27 Home Medications Medication Instructions Recorded Confirmed Type aspirin 81 mg tablet,delayed 81 mg PO DAILY 08/11/23 08/11/23 History release atorvastatin 20 mg tablet 20 mg PO DAILY 08/11/23 08/11/23 History dulaglutide 1.5 mg/0.5 mL 1.5 mg subcut Q7D 08/11/23 08/11/23 History subcutaneous pen injector (Trulicity) empagliflozin 10 mg tablet 10 mg PO DAILY 08/11/23 08/11/23 History (Jardiance) gabapentin 100 mg capsule 200 mg PO TID 08/11/23 08/11/23 History glipizide 5 mg tablet 5 mg PO DAILY 08/11/23 08/11/23 History hydrochlorothiazide 25 mg tablet 25 mg PO DAILY 08/11/23 08/11/23 History metformin 1,000 mg tablet 1,000 mg PO BID 08/11/23 08/11/23 History metoprolol succinate 25 mg 25 mg PO DAILY 08/11/23 08/11/23 History tablet,extended release 24 hr niacin 500 mg tablet 500 mg PO DAILY 08/11/23 08/11/23 History Past Med/Surg History Problem List Nausea & vomiting (Acute) Acute dehydration (Acute) Vitamin D deficiency Background diabetic retinopathy associated with type 2 diabetes mellitus Obesity Personal history of diabetic foot ulcer Pacemaker Dysesthesia Diabetes type 2, controlled (Acute) Dyslipidemia Hypertension Charcot's joint of foot in type 2 diabetes mellitus (Acute) Diabetic peripheral neuropathy associated with type 2 diabetes mellitus JASSON (obstructive sleep apnea) Medical History History of acute renal failure Surgical History No pertinent past surgical history Family History Other Diabetes Social History Smoking Status: Former smoker Cigarettes Per Day: 1; Second Hand Exposure: No; Do You Dip or Chew Tobacco: No; Hx Alcohol Use: Yes Alcohol type: beer Alcohol Intake Frequency: Monthly or Less Hx Substance Use: No Preferred Language: Upper Sorbian Communication Ability: Effective Visual Impairment: No Limitations Hearing Ability: Normal Funeral Director/Embalmer Required: No Beliefs That Will Affect Care: None marital status: Current Living Situation: Spouse How many Children do You have: 3 Feels Safe at Home: Yes Diet: regular caffeine: No Assistive Devices: None Review of Systems Review of Systems: All systems reviewed & are unremarkable except as noted in HPI & below Physical Exam Physical Exam: Constitutional: WD/WN, vitals as above, NAD, sitting up in bed, pleasant, conversing easily Head: Normocephalic, Atraumatic Eyes: PERRL, conjunctivae normal, anicteric sclerae ENMT: external ear and nose normal, oropharynx normal Neck: trachea midline, no thyromegaly normal visual inspection Respiratory: normal respiratory effort, lungs clear to auscultation, no wheeze, rales, rhonchi. Normal insp/exp effort, no accessory muscle use Cardiovascular: RRR, no murmur, no edema Vessels: no JVD or carotid bruit Chest: normal inspection of chest Abdomen: normal bowel sounds, soft, nontender, no hepatosplenomegaly Musculoskeletal: no cyanosis or clubbing, extremities motor strength 5/5 Skin: no rashes, warm and dry normal turgor Neurologic: PERRL, EOMI, accommodation nl, no face palsy, no dysarthria CN's II-XI intact bilaterally and moves all extremities Psychiatric: A+Ox3, euthymic affect Lymphatic: no cervical or axillary lymphadenopathy : deferred Results & Data Results & Data Vital Signs (Past 12 Hours) Vital Signs Temp Pulse Pulse Resp BP BP Pulse Ox 08/11/23 20:36 100 H 20 132/81 100 08/11/23 16:58 36.7 C 119 H 20 123/83 100 O2 Del Method 08/11/23 20:36 Room Air 08/11/23 16:58 Room Air Diagnostic Findings Chest X-Ray 08/11/23 17:20 XR chest 1V portable HISTORY: 62 years-old Male Chest pain, nonspecific COMPARISON: 03/15/2021 TECHNIQUE: AP view of the chest FINDINGS: Cardiomediastinal and hilar silhouettes are unchanged. Dual lead left subclavian pacer. No pneumothorax, pleural effusion or overt pulmonary edema. There is mild linear left basilar subsegmental atelectasis versus scarring. Spondylotic spurring of the spine. IMPRESSION: No acute process. ACT 112: Negative or not required by law. The above report was generated using voice recognition software. It may contain grammatical, syntax or spelling errors. Electronically signed by: Agustin Shipley M.D. 08/11/2023 5:44 PM Medications Administered Medication List Discontinued Medications Sodium Chloride (Nss) 1,000 mls @ 999 mls/hr IV .Q1H1M ONE Stop: 08/11/23 18:20 Last Infusion: 08/11/23 18:42 Dose: Infused Documented By: Admin: 08/11/23 17:37 Dose: 999 mls/hr Documented By: RAFI Sodium Chloride (Nss) 1,000 mls @ 999 mls/hr IV .Q1H1M ONE Stop: 08/11/23 19:54 Last Infusion: 08/11/23 20:24 Dose: Infused Documented By: Admin: 08/11/23 18:57 Dose: 999 mls/hr Documented By: RAFI Promethazine HCl (Phenergan) 12.5 mg in 50.5 mls @ 202 mls/hr IV NOW STA Stop: 08/11/23 20:42 Last Admin: 08/11/23 20:34 Dose: 202 mls/hr Documented By: RAFI Ondansetron HCl (Ondansetron Inj 2 Mg/Ml 2 Ml Vial) 4 mg IV NOW STA Stop: 08/11/23 17:21 Last Admin: 08/11/23 17:37 Dose: 4 mg Documented By: RAFI ECG Additional Comments: I have independently reviewed and interpreted patient's admitting EKG which revealed: atrial sensed, 111bpm qtc 503ms no s t wave change COVID-19 Results Results COVID-19 Adm Lab Results: RBC 5.67 M/uL (4.70-6.10) 08/11/23 WBC 5.01 K/ul (4.8-10.8) 08/11/23 Hgb 17.2 g/dl (14.0-18.0) 08/11/23 Hct 49.0 % (42.0-52.0) 08/11/23 Plt Count 120 K/uL (130-400) L 08/11/23 Neutrophils (%) (Auto) 84.8 % 08/11/23 Lymphocytes (%) (Auto) 8.0 % 08/11/23 Monocytes # (Auto) 0.31 K/uL (0.11-0.59) 08/11/23 Eosinophils # (Auto) 0.01 K/uL (0.00-0.50) 08/11/23 Immature Granulocyte % (Auto) 0.6 % 08/11/23 Neutrophils # (Auto) 4.25 K/uL (1.40-6.50) 08/11/23 Lymphocytes # (Auto) 0.40 K/uL (1.20-3.40) L 08/11/23 Monocytes # (Auto) 0.31 K/uL (0.11-0.59) 08/11/23 Eosinophils # (Auto) 0.01 K/uL (0.00-0.50) 08/11/23 Basophils # (Auto) 0.01 K/uL (0.00-0.20) 08/11/23 Immature Granulocyte # (Auto) 0.03 K/uL (0.01-0.20) 4 Na 136 mmol/L (136-145) 08/11/23 K 3.8 mmol/L (3.5-5.1) 08/11/23 Cl 99 mmol/L (98-107) 08/11/23 CO2 25 mmol/L (21-32) 08/11/23 Anion Gap 12 (3-11) H 08/11/23 BUN 39 mg/dl (6-23) H 08/11/23 Creatinine 1.34 mg/dl (0.6-1.4) 08/11/23 BUN/Creatinine Ratio 29.1 (10-20) H 08/11/23 Glucose Level 246 mg/dl (70-99(Fasting)) H 08/11/23 Ca 8.5 mg/dl (8.6-10.3) L 08/11/23 Total Bilirubin 1.0 mg/dl (0.2-1.0) 08/11/23 AST/SGOT 26 U/L (13-39) 08/11/23 ALT/SGPT 35 U/L (7-52) 08/11/23 Alkaline Phosphatase 61 U/L (34-104) 08/11/23 Total Protein 6.9 gm/dl (6.0-8.3) 08/11/23 Albumin 3.8 gm/dl (3.4-5.0) 08/11/23 Globulin 3.1 gm/dl (2.5-4.0) 08/11/23 Albumin/Globulin Ratio 1.2 (0.9-2) 08/11/23 Chest X-Ray 08/11/23 Code Status & VTE Plan Code Status FULL CODE
[2023-08-11 21:16] LABS: Magnesium 2.1 mg/dl (1.7-2.4)
[2023-08-11] MEDS: ACETAMINOPHEN 1,000 MG/100 ML VIAL IV STA (22:01)
--- NOTE | 2023-08-11 22:03 | History & Physical Report ---
Date of Service August 11, 2023 Assessment & Plan (1) Nausea & vomiting: (2) Acute dehydration: (3) Diabetes type 2, controlled: (4) Dyslipidemia: (5) JASSON (obstructive sleep apnea): (6) Hypertension: Plan Intractable nausea and vomiting with acute dehydration- N.p.o. for now Received 2 L normal saline bolus in the ED, with some improvement in symptoms NSS + KCl 20 mill equivalents at 80 mL/h x 1 L Give Tylenol 1 g IV now Pantoprazole 40 mg IV daily with first dose now Zofran 4 mg IV every 6 hours as needed Compazine 12.5 mg IV every 6 hours as needed as backup [employer] testing ordered Diabetes mellitus- N.p.o. Hold Trulicity, Jardiance, glipizide and metformin Placed on Accu-Cheks with NovoLog SSI Hypertension- For now hold metoprolol succinate, HCTZ and aspirin History of Present Illness Chief Complaint: The patient presents to the emergency department with 3 days of nausea and vomiting, unable to take any of his medications, with symptoms following similar illnesses from other family members. Primary Care Provider: Ermias San MD The patient is a 62-year-old male with past medical history including vitamin D deficiency, diabetes mellitus, history of diabetic foot ulcer, status post pacemaker, dyslipidemia, hypertension, Charcot joint, JASSON, diabetic peripheral neuropathy, and background diabetic retinopathy. The patient reports that his symptoms are similar to listed above through the rest of his family, primarily that of nausea and vomiting, and unable to keep any medications down. His main other complaint is that of a headache, and feels dehydrated. Allergies Allergy/AdvReac Type Severity Reaction Status Date / Time No Known Allergies Allergy Mild Verified 07/25/23 09:27 Home Medications Medication Instructions Recorded Confirmed Type aspirin 81 mg tablet,delayed 81 mg PO DAILY 08/11/23 08/11/23 History release atorvastatin 20 mg tablet 20 mg PO DAILY 08/11/23 08/11/23 History dulaglutide 1.5 mg/0.5 mL 1.5 mg subcut Q7D 08/11/23 08/11/23 History subcutaneous pen injector (Trulicity) empagliflozin 10 mg tablet 10 mg PO DAILY 08/11/23 08/11/23 History (Jardiance) gabapentin 100 mg capsule 200 mg PO TID 08/11/23 08/11/23 History glipizide 5 mg tablet 5 mg PO DAILY 08/11/23 08/11/23 History hydrochlorothiazide 25 mg tablet 25 mg PO DAILY 08/11/23 08/11/23 History metformin 1,000 mg tablet 1,000 mg PO BID 08/11/23 08/11/23 History metoprolol succinate 25 mg 25 mg PO DAILY 08/11/23 08/11/23 History tablet,extended release 24 hr niacin 500 mg tablet 500 mg PO DAILY 08/11/23 08/11/23 History Past Med/Surg History Problem List Nausea & vomiting (Acute) Acute dehydration (Acute) Vitamin D deficiency Background diabetic retinopathy associated with type 2 diabetes mellitus Obesity Personal history of diabetic foot ulcer Pacemaker Dysesthesia Diabetes type 2, controlled (Acute) Dyslipidemia Hypertension Charcot's joint of foot in type 2 diabetes mellitus (Acute) Diabetic peripheral neuropathy associated with type 2 diabetes mellitus JASSON (obstructive sleep apnea) Medical History History of acute renal failure Surgical History No pertinent past surgical history Family History Other Diabetes Social History Smoking Status: Former smoker Cigarettes Per Day: 1; Second Hand Exposure: No; Do You Dip or Chew Tobacco: No; Hx Alcohol Use: Yes Alcohol type: beer Alcohol Intake Frequency: Monthly or Less Hx Substance Use: No Preferred Language: Greek Communication Ability: Effective Visual Impairment: No Limitations Hearing Ability: Normal Block Handler Required: No Beliefs That Will Affect Care: None marital status: Current Living Situation: Spouse How many Children do You have: 3 Feels Safe at Home: Yes Diet: regular caffeine: No Assistive Devices: None Review of Systems Review of Systems: The patient denies chest pain, palpitations, shortness of breath, dyspnea on exertion, cough, lower extremity swelling, sore throat, fevers, chills, sweats, blood in urine or stool, dysuria, urinary frequency or urgency, lightheadedness, dizziness, headache, memory loss, loss of consciousness, rash, abnormal bruising or bleeding, imbalance, focal weakness, numbness or tingling in arms or legs, generalized arthralgias or myalgias, back or neck pain, or night sweats. The review of systems is otherwise negative other than for that already noted above, and at least 10 systems have been reviewed. Physical Exam Physical Exam: The patient is awake, alert and oriented 3, well developed and well nourished, normocephalic and atraumatic, lying in bed and in no acute distress. HEENT--PERRL, EOMI, mucous membranes and oropharynx dry. Neck--supple. No JVD. No bruits. Thyroid normal, trachea midline, no adenopathy. Heart--normal S1 and S2. No murmurs, rubs or gallops. Lungs--clear bilaterally, no respiratory distress, no accessory muscle use. Abdomen--normal bowel sounds and soft. Nontender. Nondistended. Obese. Extremities--No edema. There are good distal pulses b/l. Dermatologic--normal skin turgor, normal color, no abnormal lymph nodes, no rash. Neurologic--cranial nerves II through XII grossly intact. Rheumatologic--normal range of motion. Psychiatric--normal affect. Results & Data Results & Data Vital Signs (Past 12 Hours) Vital Signs Temp Pulse Pulse Resp BP BP Pulse Ox 08/11/23 20:36 100 H 20 132/81 100 08/11/23 16:58 36.7 C 119 H 20 123/83 100 O2 Del Method 08/11/23 20:36 Room Air 08/11/23 16:58 Room Air Laboratory Results Laboratory Results WBC 5.01 K/ul (4.8-10.8) 08/11/23 17:25 RBC 5.67 M/uL (4.70-6.10) 08/11/23 17:25 Hgb 17.2 g/dl (14.0-18.0) 08/11/23 17:25 Hct 49.0 % (42.0-52.0) 08/11/23 17:25 MCV 86.4 fL (80.0-100.0) 08/11/23 17:25 MCH 30.3 pg (25.0-34.0) 08/11/23 17:25 MCHC 35.1 g/dL (32.0-36.0) 08/11/23 17:25 RDW Std Deviation 40.1 fL (36.4-46.3) 08/11/23 17: RDW Coeff of Solomon 12.8 % (11.5-14.5) 08/11/23 17:25 Plt Count 120 K/uL (130-400) L 08/11/23 17:25 MPV 10.4 fL (9.4-12.4) 08/11/23 17:25 Immature Gran % (Auto) 0.6 % 08/11/23 17:25 Neut % (Auto) 84.8 % 08/11/23 17:25 Lymph % (Auto) 8.0 % 08/11/23 17:25 [place] % (Auto) 6.2 % 08/11/23 17:25 Eos % (Auto) 0.2 % 08/11/23 17:25 Baso % (Auto) 0.2 % 08/11/23 17:25 Neut # (Auto) 4.25 K/uL (1.40-6.50) 08/11/23 17:25 Lymph # (Auto) 0.40 K/uL (1.20-3.40) L 08/11/23 17:25 [place] # (Auto) 0.31 K/uL (0.11-0.59) 08/11/23 17:25 Eos # (Auto) 0.01 K/uL (0.00-0.50) 08/11/23 17:25 Baso # (Auto) 0.01 K/uL (0.00-0.20) 08/11/23 17:25 Immature Gran # (Auto) 0.03 K/uL (0.01-0.20) 08/11/23 17:25 Sodium 136 mmol/L (136-145) 08/11/23 17:25 Potassium 3.8 mmol/L (3.5-5.1) 08/11/23 17:25 Chloride 99 mmol/L (98-107) 08/11/23 17:25 Carbon Dioxide 25 mmol/L (21-32) 08/11/23 17:25 Anion Gap 12 (3-11) H 08/11/23 17:25 BUN 39 mg/dl (6-23) H 08/11/23 17:25 Creatinine 1.34 mg/dl (0.6-1.4) 08/11/23 17:25 Est Cr Clr Drug Dosing Not Reportable 08/11/23 17:25 Est GFR ( Amer) 65.3 ml/min 08/11/23 17:25 Est GFR (Non-Af Amer) 56.4 ml/min 08/11/23 17:25 BUN/Creatinine Ratio 29.1 (10-20) H 08/11/23 17:25 Glucose 246 mg/dl (70-99(Fasting)) H 08/11/23 17:25 POC Glucose 193 mg/dl (70-99) H 08/11/23 17:01 Calcium 8.5 mg/dl (8.6-10.3) L 08/11/23 17:25 Magnesium 2.1 mg/dl (1.7-2.4) 08/11/23 17:25 Total Bilirubin 1.0 mg/dl (0.2-1.0) 08/11/23 17:25 AST 26 U/L (13-39) 08/11/23 17:25 ALT 35 U/L (7-52) 08/11/23 17:25 Alkaline Phosphatase 61 U/L (34-104) 08/11/23 17:25 Troponin I High Sens 13.7 pg/ml (0-20) 08/11/23 17:25 Total Protein 6.9 gm/dl (6.0-8.3) 08/11/23 17:25 Albumin 3.8 gm/dl (3.4-5.0) 08/11/23 17:25 Globulin 3.1 gm/dl (2.5-4.0) 08/11/23 17:25 Albumin/Globulin Ratio 1.2 (0.9-2) 08/11/23 17:25 Lipase 13 U/L (11-82) 08/11/23 17:25 Adenovirus (PCR) Not Detected (NotDetected) 08/11/23 Unknown B. pertussis DNA (PCR) Not Detected (NotDetected) 08/11/23 Unknown B.parapertussis DNA PCR Not Detected (NotDetected) 08/11/23 Unknown C. pneumoniae DNA (PCR) Not Detected (NotDetected) 08/11/23 Unknown Coronavirus OC43 (PCR) Not Detected (NotDetected) 08/11/23 Unknown Coronavirus HKU1 (PCR) Not Detected (NotDetected) 08/11/23 Unknown Coronavirus 229E (PCR) Not Detected (NotDetected) 08/11/23 Unknown SARS-CoV-2 (PCR) Not Detected (NotDetected) 08/11/23 Unknown Coronavirus NL63 (PCR) Not Detected (NotDetected) 08/11/23 Unknown Human Metapneumovir PCR Not Detected (NotDetected) 08/11/23 Unknown Influenza Type A (PCR) Not Detected (NotDetected) 08/11/23 Unknown Influenza Type B (PCR) Not Detected (NotDetected) 08/11/23 Unknown M. pneumoniae (PCR) Not Detected (NotDetected) 08/11/23 Unknown Parainfluenza 1 (PCR) Not Detected (NotDetected) 08/11/23 Unknown Parainfluenza 2 (PCR) Not Detected (NotDetected) 08/11/23 Unknown Parainfluenza 3 (PCR) Not Detected (NotDetected) 08/11/23 Unknown Parainfluenza 4 (PCR) Not Detected (NotDetected) 08/11/23 Unknown RSV (PCR) Not Detected (NotDetected) 08/11/23 Unknown Entero/Rhino (PCR) Not Detected (NotDetected) 08/11/23 Unknown Impressions Chest X-Ray 08/11/23 17:20 XR chest 1V portable HISTORY: 62 years-old Male Chest pain, nonspecific COMPARISON: 03/15/2021 TECHNIQUE: AP view of the chest FINDINGS: Cardiomediastinal and hilar silhouettes are unchanged. Dual lead left subclavian pacer. No pneumothorax, pleural effusion or overt pulmonary edema. There is mild linear left basilar subsegmental atelectasis versus scarring. Spondylotic spurring of the spine. IMPRESSION: No acute process. ACT 112: Negative or not required by law. The above report was generated using voice recognition software. It may contain grammatical, syntax or spelling errors. Electronically signed by: Agustin Shipley M.D. 08/11/2023 5:44 PM Code Status & VTE Plan Code Status Full code VTE Prophylaxis Plan VTE Prophylaxis will be ordered: Yes PG Care Time/CCT Total # of Minutes Spent Total Time Spent with Patient: Total time spent is greater than 50% in coordination of care (as documented) at patient's floor/unit and/or counseling patient: Coding Level of Care Code 80792 INT INP/OBS CARE 3/75MIN Diagnoses Nausea & vomiting R11.2 Acute dehydration E86.0 Diabetes type 2, controlled E11.9 Dyslipidemia E78.5 JASSON (obstructive sleep apnea) G47.33 Hypertension I10
[2023-08-11] MEDS: PANTOprazole 40 MG in SYRINGE 0 ML IV ONE (22:41)
[2023-08-11] MEDS: NSS + 20MEQ KCL 20 MEQ/1,000 ML BAG IV SCH (22:44)
[2023-08-11 22:45] LABS: Adenovirus PCR Not Detected (NotDetected); Bordetella parapertussis PCR Not Detected (NotDetected); Bordetella pertussis PCR Not Detected (NotDetected); Chlamydia pneumoniae PCR Not Detected (NotDetected); Coronavirus 229E PCR Not Detected (NotDetected); Coronavirus CoV-2 (COVID19)PCR Not Detected (NotDetected); Coronavirus HKU1 PCR Not Detected (NotDetected); Coronavirus NL63 PCR Not Detected (NotDetected); Coronavirus OC43PCR Not Detected (NotDetected); Human Metapneumovirus PCR Not Detected (NotDetected); Influenza A PCR Not Detected (NotDetected); Influenza B PCR Not Detected (NotDetected); Mycoplasma pneumoniae PCR Not Detected (NotDetected); Parainfluenza Virus 1 PCR Not Detected (NotDetected); Parainfluenza Virus 2 PCR Not Detected (NotDetected); Parainfluenza Virus 3 PCR Not Detected (NotDetected); Parainfluenza Virus 4 PCR Not Detected (NotDetected); Respiratory Syncytial VirusPCR Not Detected (NotDetected); Rhinovirus/Enterovirus PCR Not Detected (NotDetected)
[2023-08-11] MEDS ORDERED: GLUCOSE 10 TAB/TUBE PO PRN (23:14)
[2023-08-11] MEDS ORDERED: DEXTROSE 50% 50 ML SYRINGE IV PRN (23:14)
[2023-08-11] MEDS ORDERED: GLUCOSE 40% GEL 15 GM TUBE PO PRN (23:14)
[2023-08-11] MEDS ORDERED: CARBOHYDRATES FOR HYPOGLYCEMIA PO PRN (23:14)
[2023-08-11] MEDS ORDERED: GLUCAGON FOR INJ 1 MG VIAL SQ PRN (23:14)
[2023-08-12] MEDS: Patient's HEIGHT &/or WEIGHT Needed SCH (00:26)
[2023-08-12 04:50] LABS: Albumin Level 3.2 gm/dl (3.4-5.0); BUN Creatinine Ratio 27.4 (10-20); Calcium 7.5 mg/dl (8.6-10.3); Creatinine Clr Calc Pharmacy 91.8 ml/min; Est GFR (Non-African American) 66.4 ml/min; Magnesium 2.1 mg/dl (1.7-2.4); Phosphorus 2.5 mg/dl (2.5-4.9); Potassium 3.9 mmol/L (3.5-5.1)
[2023-08-12] MEDS ORDERED: PROMETHAZINE HCL 12.5 MG in SODIUM CHLORIDE 0.9% 50 ML IV PRN (05:00)
[2023-08-12 05:41] LABS: Basophils # (auto) 0.01 K/uL (0.00-0.20); Basophils % (auto) 0.3 %; Eosinophils # (auto) 0.02 K/uL (0.00-0.50); Eosinophils % (auto) 0.6 %; Hematocrit (blood only) 44.4 % (42.0-52.0); Hemoglobin 15.2 g/dl (14.0-18.0); Immature Granulocytes # (auto) 0.01 K/uL (0.01-0.20); Immature Granulocytes % (auto) 0.3 %; Lymphocytes # (auto) 0.61 K/uL (1.20-3.40); Lymphocytes % (auto) 16.8 %; Mean Corpuscular Hemoglobin 30.3 pg (25.0-34.0); Mean Corpuscular Hgb Conc 34.2 g/dL (32.0-36.0); Mean Corpuscular Volume 88.4 fL (80.0-100.0); Mean Platelet Volume 9.8 fL (9.4-12.4); Monocytes # (auto) 0.29 K/uL (0.11-0.59); Neutrophils # (auto) 2.69 K/uL (1.40-6.50); Platelet Count 97 K/uL (130-400); Platelet Estimate Decreased (Normal); RDW Coefficient of Variation 12.9 % (11.5-14.5); RDW Standard Deviation 42.1 fL (36.4-46.3); Red Blood Count 5.02 M/uL (4.70-6.10); White Blood Count 3.63 K/ul (4.8-10.8)
[2023-08-12] MEDS ORDERED: ACETAMINOPHEN 1,000 MG/100 ML VIAL IV PRN (07:00)
[2023-08-12 07:08] LABS: Estimated Average Glucose 200 mg/dl; Hemoglobin A1C 8.6 % (4.5-5.6)
--- NOTE | 2023-08-12 10:24 | Electrocardiogram Report ---
Test Reason : Blood Pressure : / mmHG Vent. Rate : 111 BPM Atrial Rate : 111 BPM P-R Int : 196 ms QRS Dur : 118 ms QT Int : 370 ms P-R-T Axes : 051 -67 095 degrees QTc Int : 503 ms Atrial-sensed ventricular-paced rhythm Abnormal ECG When compared with ECG of 15-MAR-2021 21:34, Electronic ventricular pacemaker has replaced Sinus rhythm Confirmed by Ronald Alfonso ([id number]) on 08/12/2023 10:24:23 AM Referred By: REFERRED SELF Confirmed By:Myles Alfonso
[2023-08-12] MEDS: INSULIN ASPART PER UNIT CHARGE SC SCH (11:09)
[2023-08-12] MEDS: PANTOprazole 40 MG in SYRINGE 0 ML IV SCH (13:03)
[2023-08-12] MEDS: ONDANSETRON INJ 2 MG/ML 2 ML VIAL IV PRN (13:17)
[2023-08-12] MEDS: FAMOTIDINE 20MG IV PUSH 20 MG/5 ML SYR IV STA (16:08)
[2023-08-12] MEDS: LACTATED RINGER'S 500 ML IV ONE (16:09)
--- NOTE | 2023-08-12 16:14 | Discharge Summary ---
Date of Service August 12, 2023 Admission HPI Per Admitting Provider The patient is a 62-year-old male with past medical history including vitamin D deficiency, diabetes mellitus, history of diabetic foot ulcer, status post pacemaker, dyslipidemia, hypertension, Charcot joint, JASSON, diabetic peripheral neuropathy, and background diabetic retinopathy. The patient reports that his symptoms are similar to listed above through the rest of his family, primarily that of nausea and vomiting, and unable to keep any medications down. His main other complaint is that of a headache, and feels dehydrated. Principal Diagnosis Nausea and Vomiting Discharge Exam Constitutional well developed and well nourished Eyes + anicteric sclerae Neck normal visual inspection Respiratory normal respiratory effort, lungs clear to auscultation Cardiovascular RRR, no murmur, no edema Gastrointestinal (Abdomen) Inspection/Auscultation: abdomen normal to inspection and normal bowel sounds; abdomen not distended Musculoskeletal Head/Neck/Chest: normocephalic and head atraumatic Skin no rashes, warm and dry Psychiatric A+Ox3, euthymic affect Discharge Data Allergies Allergy/AdvReac Type Severity Reaction Status Date / Time No Known Allergies Allergy Mild Verified 07/25/23 09:27 Consultations 08/11/23 21:04 ED Decision to Admit Stat Hospital Course (1) Nausea & vomiting: Patient presented to the hospital for nausea and vomiting of a 4-day duration. Workup ultimately negative for any metabolic or anatomic cause at this time but suspect viral gastroenteritis given history of similar symptoms in family members and improvement with IV fluid and antiemetics. Patient was observed overnight and put on maintenance IV fluid as well as antiemetics. At the day of discharge, patient was able to tolerate oral hydration and felt comfortable with going home. He was sent with a prescription for Zofran to take with meals to allow better hydration and tolerance of diet. It was recommended he does not take his glipizide as do not induce hypoglycemia while he is not eating a regular diet. He is to follow-up with his primary care provider within 1 week of discharge. (2) Acute dehydration: As above (3) Pacemaker: Noted. No changes at this time (4) Diabetes type 2, controlled: Admission A1c of 8.6 indicating uncontrolled type 2 diabetes. Currently on Trulicity, Jardiance, metformin, and glipizide. Due to risk of hypoglycemia, it was recommended that the patient not take glipizide until he is able to tolerate a regular diet. Otherwise continue all other medications as they are much less likely to induce hypoglycemia and should be well-tolerated. (5) Hypertension: Continue HCTZ, Metoprolol Total Time Total Time Spent Total Time Spent (In Minutes): 34 Discharge Plan Discharge Items Patient Disposition: Home - Self-Care Reason For Visit: INTRACTABLE NAUSEA AND VOMITING, DEHYDRATION, TACH Discharge Diagnosis: Nausea and vomiting due to viral gastroenteritis Activity: Per Instructions section Non-emergency contact: Primary Care Provider Call non-emergency contact if: you have any medication questions Follow-up/Referrals: Ermias San MD [Primary Care Provider] - Diet: Regular Addtl Attending Provider Instructions: You were seen in the hospital for concern nausea and vomiting for the past 3 days. While you are here a workup was done to explain your vomiting. It is suspected that it is due to a viral gastroenteritis given his history of multiple family members having similar symptoms. I suspect that is affecting you more given your history of diabetes. You were given IV fluid to help rehydrate you and you also had better appetite with Zofran. On the day of discharge, you reported to me that your symptoms have not been felt safe to be discharged home to adequately hydrate yourself especially with Zofran. I feel that this is medically appropriate. Continue to take sips of water throughout the day as tolerated and occasionally consume electrolyte rich fluids such as Gatorade/Pedialyte and advance her diet as tolerated. I recommend while you are not needing or drinking much, that you do not take your glipizide as this can cause hypoglycemia and exacerbate your nausea and vomiting. Once you are able to consume a normal diet, you may resume taking your glipizide as previously instructed by your PCP. Otherwise please follow-up with your primary care provider within 1 week of discharge. It has been a pleasure to be a part of your care and we wish you the best in both your health and your recovery. Pending Studies at Discharge: No Stand-Alone Forms: [employer] [place] [employer], Smoking Cessation Medications and DC Order Prescriptions: New ondansetron HCl 4 mg tablet 4 mg PO Q8H PRN (Reason: nausea and vomiting) 10 Days Qty: 30 0RF (DME) Blood Glucose Test Strip See Rx Instructions .Route Qty: 50 0RF Rx Instructions: As directed Continued atorvastatin 20 mg tablet 20 mg PO DAILY aspirin 81 mg Tablet,Delayed Release (Dr/Ec) 81 mg PO DAILY metformin 1,000 mg tablet 1,000 mg PO BID niacin 500 mg Tablet 500 mg PO DAILY hydrochlorothiazide 25 mg tablet 25 mg PO DAILY gabapentin 100 mg capsule 200 mg PO TID metoprolol succinate 25 mg tablet extended release 24 hr 25 mg PO DAILY glipizide 5 mg tablet 5 mg PO DAILY Jardiance 10 mg tablet 10 mg PO DAILY Trulicity 1.5 mg/0.5 mL Pen Injector 3 mg SUBCUT Q7D Rx Instructions: Sundays, finishing up in 3 weeks then moving on to [facility] -08/12/23 Discharge Orders: Discharge Order (Routine); Ordered 08/12/23 Ordered By: Destin Gallardo Admission Data Admit Date/Time: 08/11/23 22:03 Attending Provider: Ronald Murillo Admit Provider: Mark Dougherty Primary Care Provider: Ermias San Other Providers: Mark Dougherty Other Interventions: Discharge Summary Assessment (RN) Last Done: 08/12/23 17:08 Supervising Physician Co-Signing Physician Notes Attending attestation Pt seen and examined in concert with Dr. Gallardo. In agreement with the documented findings as noted in the resident documentation with any exceptions or additions as noted here. Gradual improvement in nausea and PO tolerance after administration of ondansetron today. On examination, S1/S2 nl RRR no MCG. CTAB. Abd NT/ND BS+ve Intractible nausea/vomiting, likely viral gastroenteritis - gradual improvement with hydration, ondansetron and rest. Dietary recommendations as noted above. DMII - holding glipizide to avoid hypoglycemia, encourage POI as above. Else see resident documentation as noted. Total attending physician time spent with this patient's care on the day of discharge: 35 minutes.
== END 2023-08-12 17:00 | disposition home or self-care (01) ==
LOC: EDINP 16:55 → ED 16:55 → SUATTDRO 22:03 → EDINP 22:38